=== PATIENT | male | born 1955 | race Hispanic/Latino ===

== ENCOUNTER 2021-06-13 14:37 | Inpatient (IN) | payer OTHER ==
[2021-06-13] MEDS ORDERED: FENTANYL CITR 100 MCG/2 ML ONE (16:02)
--- NOTE | 2021-06-13 16:12 | RAD REPORT ---
EXAM DESCRIPTION: CT - Head Brain Wo Cont - 06/13/2021 4:06 pm CLINICAL HISTORY: mental status change Headache, drowsiness COMPARISON: No comparisons TECHNIQUE: All CT scans are performed using dose optimization technique as appropriate and may inclu de automated exposure control or mA/KV adjustment according to patient size. FINDINGS: No intracranial hemorrhage, hydrocephalus or extra-axial fluid collection.Mild generalized brain atrophy is present with mild periventricular and deep white matter chronic microvascular ische hitesh changes.No areas of brain edema or evidence of midline shift. The paranasal sinuses and mastoids are clear. The calvarium is intact. IMPRESSION: No acute intracranial abnormality.
--- NOTE | 2021-06-13 16:25 | RAD REPORT ---
EXAM DESCRIPTION: RAD - Chest Single View - 06/13/2021 4:17 pm CLINICAL HISTORY: abd distention Chest pain. COMPARISON: No comparisons FINDINGS: Portable technique limits examination quality. The lungs are grossly clear. The heart is normal in size. No displaced fractures. IMPRESSION: No acute intrathoracic process suspected.
[2021-06-13 17:10] LABS: Urine Blood 2+ (Negative); Urine Glucose Negative (Negative); Urine Protein Negative (Negative); Urine Specific Gravity >=1.030 (1.005-1.030)
[2021-06-13 17:23] LABS: Absolute Lymphocytes (CBC) 0.9 K/uL (0.7-4.9); Basophils % 0.9 % (0-1.3); Hematocrit 36.9 % (39.6-49.0); Lymphocytes % 16.2 % (15.3-44.8)
[2021-06-13 17:24] LABS: Protime INR 1.04
[2021-06-13 17:28] LABS: Urine Bacteria <20 /HPF (NONE SEEN); Urine RBC <5 /HPF (NONE SEEN)
[2021-06-13 17:44] LABS: ALT/SGPT 37 U/L (12-78); AST/SGOT 51 U/L (15-37); Albumin 2.9 g/dL (3.4-5.0); Alkaline Phosphatase 149 U/L (45-117); BUN Blood Urea Nitrogen 31 mg/dL (7-18); Bicarbonate 17 mmol/L (21-32); Bilirubin Direct 0.8 mg/dL (0-0.2); Bilirubin Total 1.8 mg/dL (0.2-1.0); Glucose Level 174 mg/dL (74-106); Magnesium 2.5 mg/dL (1.8-2.4); NT PRO-BNP 833 pg/mL (<125); Protein, Total 8.1 g/dL (6.4-8.2); Sodium Level 139 mmol/L (136-145); Troponin (Emerg Dept Use Only) < 0.02 ng/mL (0.0-0.045)
[2021-06-13 17:54] LABS: Potassium 5.7 mmol/L (3.5-5.1)
--- NOTE | 2021-06-13 18:36 | ER ---
Nurse's Notes [facility] Name: Keith Holley Age: 66 yrs Sex: Male : 1955 Arrival Date: 06/13/2021 Time: 14:41 Bed 8 Private MD: Diagnosis: Encephalopathy, unspecified;Hyperkalemia;Unspecified kidney failure Presentation: 06/13 14:59 Chief complaint: Patient states: i have pain. in my stomach. i had a paracentesis on tw2 the sister - we had labs on and showed high Ammonia level. now he is alertered. he was not able to communicated or make sentences. Coronavirus screen: At this time, the client does not indicate any symptoms associated with coronavirus-19. Ebola Screen: Patient denies travel to an Ebola-affected area in the 21 days before illness onset. Initial Sepsis Screen: Does the patient meet any 2 criteria? HR > 90 bpm. No. Patient's initial sepsis screen is negative. Does the patient have a suspected source of infection? No. Patient's initial sepsis screen is negative. Risk Assessment: Do you want to hurt yourself or someone else? Patient reports no desire to harm self or others. Onset of symptoms was June 13, 2021. 14:59 Method Of Arrival: Wheelchair tw2 14:59 Acuity: RODRICK 3 tw2 Triage Assessment: 15:04 General: Appears in no apparent distress. uncomfortable, Behavior is calm, cooperative. tw2 Pain: Complains of pain in abdomen. Neuro: Level of Consciousness is awake, alert, obeys commands. GI: Abdomen is distended, noted to have ascites. Historical: - Allergies: 15:02 No Known Allergies; tw2 - Home Meds: 15:05 omeprazole 40 mg Oral cpDR 1 cap once daily [Active]; propranolol 10 mg Oral tab 1 tab tw2 [Active]; spironolactone 50 mg Oral tab 1 tab once daily [Active]; spironolactone 25 mg Oral tab 1 tab once daily [Active]; Xifaxan 550 mg oral tab 1 tab once a day [Active]; lactulose 10 gram/15 mL Oral soln 15 mL twice a day [Active]; - PMHx: 15:02 Cirrhosis of liver; ascites; tumor in liver; Kidney disease; tw2 - PSHx: 15:03 left hip sx; tw2 - Immunization history:: Client reports receiving the 2nd dose of the Covid vaccine. - Social history:: Smoking status: Patient reports the use of cigarette tobacco products, smokes one-half pack cigarettes per day. Screenin:12 Abuse screen: Denies threats or abuse. Nutritional screening: No deficits noted. tw2 Tuberculosis screening: No symptoms or risk factors identified. Fall Risk Secondary diagnosis (15 points) impaired mobility, Ambulatory Aid- Crutches/Cane/Walker (15 pts). Assessment: 15:02 Reassessment: No changes from previously documented assessment. GI: Reports distention. jt3 Vital Signs: 14:59 BP 118 / 79; Pulse 100; Resp 18; Temp 97.4(TE); Pulse Ox 100% on R/A; Weight 64.86 kg tw2 (R); 19:50 Pulse 78; Resp 18; Pulse Ox 100% on R/A; lh3 ED Course: 14:41 Patient arrived in ED. ds1 15:02 Triage completed. tw2 15:02 Arm band placed on. tw2 15:08 Bed in low position. Call light in reach. Side rails up X 1. Adult w/ patient. tw2 15:09 Duglas Loza PA is PHCP. cp 15:10 Ricky Jenkins MD is Attending Physician. cp 15:33 Sharmaine Murphy, RN is Primary Nurse. vg1 15:40 Missed attempt(s): 22 gauge in left wrist. vg1 15:58 Missed attempt(s): 24 gauge in right antecubital area. vg1 16:24 Sae Puckett, GERTRUDE is Primary Nurse. jt3 16:47 Troponin (emerg Dept Use Only) Sent. jt3 16:47 PT-INR Sent. jt3 16:47 NT PRO-BNP Sent. jt3 16:47 Magnesium Sent. jt3 16:47 LFT's Sent. jt3 16:47 CBC with Diff Sent. jt3 16:47 Basic Metabolic Panel Sent. jt3 16:47 Lactate Sent. jt3 16:47 Procalcitonin Sent. jt3 16:47 AMMONIA Sent. jt3 16:47 Ptt, Activated Sent. jt3 16:48 ETOH Level Sent. jt3 16:48 Urine Microscopic Only Sent. jt3 16:48 Blood Culture Adult (2) Sent. jt3 16:49 COVID-19 (Coronavirus) Document "Date of Onset" if Symptomatic Sent. 5 18:34 Kashmir See DO is Hospitalizing Provider. cp 18:39 CT Abd/Pelvis - Without Contrast In Process Unspecified. EDMS 19:36 No provider procedures requiring assistance completed. lh3 19:38 CORONAVIRUS Sent. lh3 19:50 Door closed. Warm blanket given. Verbal reassurance given. lh3 19:50 Inserted saline lock: 24 gauge in left antecubital area, using aseptic technique. lh3 20:53 Patient admitted, IV remains in place. 3 Administered Medications: 16:46 Drug: fentaNYL (PF) 25 mcg Route: IVP; Site: left antecubital; jt3 19:35 Drug: Insulin Regular Human 5 units {Co-Signature: dc2 (Shoshana Singletary RN).} Route: lh3 IVP; Site: left antecubital; 19:35 Drug: Calcium Gluconate 1 grams Route: IVPB; Infused Over: 60 mins; Site: left 3 antecubital; 19:35 Drug: Lactulose 20 grams Volume: 30 ml; Route: PO; lh3 19:36 Drug: NS 0.9% 1000 ml Route: IV; Rate: 1000 ml/hr; Site: left antecubital; 3 19:36 Drug: D50W 25 ml Route: IVP; Site: left antecubital; 3 Outcome: 18:35 Decision to Hospitalize by Provider. cp 20:52 Admitted to Med/surg room 422. 3 20:52 Condition: good 20:52 Instructed on the need for admit. 22:09 Patient left the ED. 3 Signatures: Dispatcher [employer] EDNC Alycia Moulton Corey, PA PA cp Court Kennedy RN RN tw2 Sharmaine Murphy, RN RN vg1 Blanquita Connolly RN RN 3 Jose Hook, GERTRUDE RN ch5 Sae Puckett RN RN jt3 Shoshana Singletary RN dc2
--- NOTE | 2021-06-13 18:36 | EDPHYS ---
Physician Documentation [facility] Name: Keith Holley Age: 66 yrs Sex: Male : 1955 Arrival Date: 06/13/2021 Time: 14:41 Bed 8 Private MD: ED Physician Ricky Jenkins HPI: 06/13 15:30 This 66 yrs old Male presents to ER via Wheelchair with complaints of Altered cp Mental Status, Abdominal Pain. 15:30 The patient presents with decreased mental status. Onset: The symptoms/episode cp began/occurred gradually. 15:30 Possible causes: known liver failure. cp 15:30 Associated signs and symptoms: Pertinent positives: abdominal pain, Pertinent cp negatives: chest pain, diarrhea, fever. Current symptoms: In the emergency department the patient's symptoms have improved, mildly, is more alert. Patient's baseline: Neuro: alert and fully oriented, Motor: no deficits, Ambulation: walks without assistance, Speech: normal. Historical: - Allergies: 15:02 No Known Allergies; tw2 - Home Meds: 15:05 omeprazole 40 mg Oral cpDR 1 cap once daily [Active]; propranolol 10 mg Oral tab 1 tab tw2 [Active]; spironolactone 50 mg Oral tab 1 tab once daily [Active]; spironolactone 25 mg Oral tab 1 tab once daily [Active]; Xifaxan 550 mg oral tab 1 tab once a day [Active]; lactulose 10 gram/15 mL Oral soln 15 mL twice a day [Active]; - PMHx: 15:02 Cirrhosis of liver; ascites; tumor in liver; Kidney disease; tw2 - PSHx: 15:03 left hip sx; tw2 - Immunization history:: Client reports receiving the 2nd dose of the Covid vaccine. - Social history:: Smoking status: Patient reports the use of cigarette tobacco products, smokes one-half pack cigarettes per day. ROS: 15:35 Constitutional: Negative for body aches, chills, fever, poor PO intake. cp 15:35 Eyes: Negative for injury, pain, redness, and discharge. cp 15:35 Cardiovascular: Negative for chest pain. 15:35 Respiratory: Negative for cough, shortness of breath, wheezing. 15:35 Abdomen/GI: Positive for abdominal pain, Negative for vomiting, diarrhea, constipation. 15:35 Neuro: Positive for altered mental status, Negative for headache, weakness. 15:35 All other systems are negative. Exam: 15:40 Constitutional: The patient appears in no acute distress, alert, awake, cp non-diaphoretic, non-toxic, well developed, well nourished. 15:40 Head/Face: Normocephalic, atraumatic. cp 15:40 Eyes: Periorbital structures: appear normal, Pupils: equal, round, and reactive to light and accomodation, Extraocular movements: intact throughout, Conjunctiva: normal, no exudate, no injection, Sclera: no appreciated abnormality, Lids and lashes: appear normal, bilaterally. 15:40 ENT: External ear(s): are unremarkable, Nose: is normal, Mouth: Lips: moist, Oral mucosa: moist, Posterior pharynx: Airway: no evidence of obstruction, patent. 15:40 Neck: ROM/movement: is normal, is supple, without pain, no range of motions limitations. 15:40 Chest/axilla: Inspection: normal. 15:40 Cardiovascular: Rate: tachycardic, Rhythm: regular, Edema: is not appreciated, JVD: is not appreciated. 15:40 Respiratory: the patient does not display signs of respiratory distress, Respirations: normal, no use of accessory muscles, no retractions, labored breathing, is not present, Breath sounds: are clear throughout, no decreased breath sounds, no stridor, no wheezing. 15:40 Abdomen/GI: Inspection: distension, that is moderate, in the abdomen diffusely, Bowel sounds: active, all quadrants, Palpation: soft, in all quadrants, mild abdominal tenderness, in all quadrants, rebound tenderness, is not appreciated, involuntary guarding, is not appreciated. 15:40 Back: pain, is absent, ROM is normal. 15:40 Skin: cellulitis, is not appreciated, no rash present. 15:40 Neuro: Orientation: to person, place, situation, Mentation: able to follow commands, slow to respond, Motor: moves all fours, strength is normal, Sensation: is normal. 15:41 ECG was reviewed by the Attending Physician. cp Vital Signs: 14:59 BP 118 / 79; Pulse 100; Resp 18; Temp 97.4(TE); Pulse Ox 100% on R/A; Weight 64.86 kg tw2 (R); 19:50 Pulse 78; Resp 18; Pulse Ox 100% on R/A; lh3 MDM: 15:10 Patient medically screened. cp 18:15 Data reviewed: vital signs, nurses notes, lab test result(s), EKG, radiologic studies, cp CT scan, plain films. 18:15 Test interpretation: by ED physician or midlevel provider: ECG. Counseling: I had a cp detailed discussion with the patient and/or guardian regarding: the historical points, exam findings, and any diagnostic results supporting the discharge/admit diagnosis, lab results, the need for further work-up and treatment in the hospital. Physician consultation: Hakeem Wynn was contacted at 18:15, regarding admission, to the telemetry unit. patient's condition, and will see patient in ED, shortly. 06/13 15:24 Order name: Basic Metabolic Panel cp 06/13 15:24 Order name: CBC with Diff 06/13 15:24 Order name: LFT's cp 06/13 15:24 Order name: Magnesium cp 06/13 15:24 Order name: NT PRO-BNP cp 06/13 15:24 Order name: PT-INR cp 06/13 15:24 Order name: Troponin (emerg Dept Use Only) cp 06/13 15:24 Order name: Lactate cp 06/13 15:24 Order name: Procalcitonin cp 06/13 15:24 Order name: AMMONIA cp 06/13 15:24 Order name: ETOH Level cp 06/13 15:24 Order name: Ptt, Activated cp 06/13 15:24 Order name: Urine Microscopic Only 06/13 15:24 Order name: Blood Culture Adult (2) 06/13 15:26 Order name: COVID-19 (Coronavirus) Document "Date of Onset" if Symptomatic 06/13 17:11 Order name: Urine Dipstick-Ancillary; Complete Time: 17:48 EDMS 06/13 17:48 Interpretation: Normal except: UBLD 2+. cp 06/13 17:13 Order name: CORONAVIRUS EDIN 06/13 17:24 Order name: CBC with Automated Diff; Complete Time: 17:48 EDMS 06/13 17:49 Interpretation: Normal except: RBC 3.70; HGB 12.5; HCT 36.9; PLT 118; RDW 17.1. cp 06/13 17:26 Order name: Protime (+INR); Complete Time: 17:48 EDMS 06/13 17:26 Order name: PTT, Activated Partial Thromb; Complete Time: 17:48 EDMS 06/13 17:29 Order name: Urine Microscopic Only; Complete Time: 17:48 EDMS 06/13 17:54 Order name: Basic Metabolic Panel; Complete Time: 18:05 EDMS 06/13 18:06 Interpretation: Normal except: K 5.7; CL 112; CO2 17; GLUC 174; BUN 31; CRE 2.55; GFR cp 25. 06/13 17:54 Order name: Liver (Hepatic) Function; Complete Time: 18:05 EDMS 06/13 18:06 Interpretation: Normal except: AST 51; ALK 149; BILIT 1.8; BILID 0.8; ALB 2.9; GLOB cp 5.2; A/G 0.6. 06/13 17:54 Order name: Troponin (Emerg Dept Use Only); Complete Time: 18:05 EDMS 06/13 17:54 Order name: NT PRO-BNP; Complete Time: 18:05 EDMS 06/13 17:54 Order name: Magnesium; Complete Time: 18:05 EDMS 06/13 18:06 Interpretation: Abnormal: MG 2.5. 06/13 18:06 Order name: Lactate; Complete Time: 18:07 EDMS 06/13 18:06 Order name: SARS-COV-2 RT PCR; Complete Time: 18:07 EDMS 06/13 18:06 Order name: Ammonia; Complete Time: 18:07 EDMS 06/13 18:07 Interpretation: Abnormal: STACIA 78. cp 06/13 18:07 Order name: Alcohol Serum/Plasma; Complete Time: 18:08 EDMS 06/13 15:24 Order name: XRAY Chest (1 view) cp 06/13 15:24 Order name: EKG; Complete Time: 16:45 06/13 15:24 Order name: Cardiac monitoring; Complete Time: 15:56 06/13 15:24 Order name: EKG - Nurse/Tech; Complete Time: 15:56 06/13 15:24 Order name: IV Saline Lock; Complete Time: 16:47 06/13 15:24 Order name: Labs collected and sent; Complete Time: 16:47 06/13 15:24 Order name: O2 Per Protocol; Complete Time: 15:56 cp 06/13 15:24 Order name: O2 Sat Monitoring; Complete Time: 15:56 cp 06/13 15:24 Order name: CT Head Brain wo Cont cp 06/13 16:13 Order name: CT; Complete Time: 16:41 EDMS 06/13 16:42 Interpretation: Report reviewed. cp 06/13 16:25 Order name: RAD; Complete Time: 16:41 EDMS 06/13 16:42 Interpretation: Report reviewed. cp 06/13 18:10 Order name: Procalcitonin; Complete Time: 18:11 EDMS 06/13 18:28 Order name: CT Abd/Pelvis - Without Contrast; Complete Time: 21:31 cp EC:41 Rate is 94 beats/min. Rhythm is regular. IL interval is normal. QRS interval is normal. cp QT interval is normal. T waves are Inverted in leads aVL, aVR. Interpreted by me. Reviewed by me. Administered Medications: 16:46 Drug: fentaNYL (PF) 25 mcg Route: IVP; Site: left antecubital; jt3 19:35 Drug: Insulin Regular Human 5 units {Co-Signature: dc2 (Shoshana Singletary RN).} Route: lh3 IVP; Site: left antecubital; 19:35 Drug: Calcium Gluconate 1 grams Route: IVPB; Infused Over: 60 mins; Site: left lh3 antecubital; 19:35 Drug: Lactulose 20 grams Volume: 30 ml; Route: PO; lh3 19:36 Drug: NS 0.9% 1000 ml Route: IV; Rate: 1000 ml/hr; Site: left antecubital; 3 19:36 Drug: D50W 25 ml Route: IVP; Site: left antecubital; 3 Disposition Summary: 06/13/21 18:35 Hospitalization Ordered Hospitalization Status: Inpatient Admission cp Provider: Kashmir See cp Location: Telemetry/MedSurg (Inpatient) cp Condition: Stable cp Problem: an ongoing problem cp Symptoms: are unchanged cp Bed/Room Type: Standard cp Room Assignment: 422(06/13/21 19:36) eb1 Diagnosis - Encephalopathy, unspecified cp - Hyperkalemia cp - Unspecified kidney failure cp Forms: - Medication Reconciliation Form cp - SBAR form cp Addendum: 06/17/2021 13:55 Co-signature as Attending Physician, Ricyk Jenkins MD I agree with the assessment and r n plan of care. Attestation: The patient's history, exam findings, diagnostics, and a summary of any interventions or procedures was reviewed in detail with Duglas VELASQUEZ. Signatures: Dispatcher [employer] EDRicky De MD MD rn Ambreena, Hakeem, OPTOELECTRONIC TECHNICIAN-C OPTOELECTRONIC TECHNICIAN-Cla1 Duglas Loza PA PA cp Court Kennedy RN RN tw2 Ritu Valles RN RN eb1 Blanquita Connolly, RN RN lh3 Sae Puckett RN RN jt3 Shoshana Singletary RN dc2 Corrections: (The following items were deleted from the chart) 06/13 19:36 18:35 ilya eb1
--- NOTE | 2021-06-13 18:55 | RAD REPORT ---
EXAM DESCRIPTION: CT - Abdomen Pelvis Wo Contrast - 06/13/2021 6:39 pm CLINICAL HISTORY: Abdominal pain. ABD PAIN COMPARISON: Abdomen W Contrast dated 04/30/2018 TECHNIQUE: CT imaging of the abdomen and pelvis was performed without contrast. Solid organ, bowel a nd vascular assessment is limited due to lack of IV and oral contrast. All CT scans are performed using dose optimization technique as appropriate and may include automated exposure control or mA/KV adjustment according to patient size. FINDINGS: The lower lung sims are clear. Advanced liver cirrhosis pattern is seen. Full assessment of the liver parenchyma is limited but ther e is likely a mass present in the anterior superior right lobe liver measures up to 4.5 cm. This is i ncompletely assessed on limited noncontrast study. The spleen, pancreas, adrenal glands and kidneys show no acute process. Cholelithiasis. Punctate left renal calculus without hydronephrosis. Mild to moderate volume ascites. No bowel obstruction, abscess or free air. The appendix is not ident ified as a discrete structure, however, no secondary findings of appendicitis are identified. Severe arthritic changes left hip. IMPRESSION: Advanced liver cirrhosis is evident. Suspicion for a mass lesion measuring about 4.5 cm is present anterior superior right lobe, very concerning for HCC. Mild to moderate volume ascites. Cholelithiasis. Punctate left renal calculus without hydronephrosis. A limited non-contrast examination was performed as detailed.
--- NOTE | 2021-06-13 19:45 | P.HP ---
Certification for Inpatient Patient admitted to: Inpatient With expected LOS: >2 Midnights Patient will require the following post-hospital care: None Practitioner: I am a practitioner with admitting privileges, knowledge of patient current condition, hospital course, and medical plan of care. Services: Services provided to patient in accordance with Admission requirements found in Title 42 Section 412.3 of the Code of Federal Regulations Patient History Date of Service: 06/13/21 Primary Care Provider: QUIRINO Coffman Dr. Reason for admission: Acute renal failure, hyperkalemia History of Present Illness: 66-year-old male with history of cirrhosis of liver secondary to hepatitis C, liver cancer, chronic kidney disease presents to the emergency department for altered mental status. Patient's family reports has been more confused over the course of last few days, patient had a paracentesis approximately 2 weeks ago where 7 L was taken off. Patient was evaluated in the emergency department labs were significant for hemoglobin 12.5 medical 36.9 platelets 118 INR 1.04 potassium 5.7 chloride 112 CO2 17 BUN 31 creatinine 2.55 GFR 25 glucose 174 lactic acid 3.0 magnesium 2.5T bili 1.8D bili 0.8 AST 51 ALT 37 alk phos 149 ammonia 78 BNP 833 procalcitonin 0.05. Patient reports that he has been compliant with his twice daily dose of lactulose and Xifaxan, patient does take spironolactone which is likely contributing to the hyperkalemia. Patient with some underlying chronic kidney disease but his baseline creatinine and GFR are unknown and not available for review. ED provider wishes to admit for acute renal failure, hyperkalemia, hepatic encephalopathy. Allergies No Known Allergies Allergy (Unverified 06/13/21 15:25) - Past Medical/Surgical History -: Cirrhosis/hep C/liver cancer -: CKD -: Left hip surgery Psychosocial/ Personal History: Patient lives alone but currently has family staying with him to help care for him - Family History Mother -: Diabetes - Social History Smoking Status: Current every day smoker Counseled patient to stop smoking for: less than 10 minutes Smoking therapy provided: No (Patient declined) Alcohol use: No CD- Drugs: No Caffeine use: Yes Place of Residence: Home Review of Systems 10-point ROS is otherwise unremarkable Neurological: Confusion, As per HPI Physical Examination - Physical Exam General: Alert, In no apparent distress, Oriented x3 HEENT: Atraumatic, PERRLA, Mucous membr. moist/pink, EOMI, Sclerae nonicteric Neck: Supple, 2+ carotid pulse no bruit, No LAD, Without JVD or thyroid abnormal ity Respiratory: Clear to auscultation bilaterally, Normal air movement Cardiovascular: Regular rate/rhythm, Normal S1 S2 Capillary refill: <2 Seconds Gastrointestinal: Normal bowel sounds, No tenderness, No masses, No rebound, No guarding, Ascites Musculoskeletal: No tenderness Integumentary: No rashes Neurological: Normal speech, Normal strength at 5/5 x4 extr, Normal tone, Normal affect - Studies Laboratory Data (last 24 hrs) 06/13/21 16:40: PT 12.0, INR 1.04, APTT 28.3 06/13/21 16:40: WBC 5.30, Hgb 12.5 L, Hct 36.9 L, Plt Count 118 L 06/13/21 16:40: Sodium 139, Potassium 5.7 H*, BUN 31 H, Creatinine 2.55 H, Glucose 174 H, Magnesium 2.5 H, Total Bilirubin 1.8 H, AST 51 H, ALT 37, Alkaline Phosphatase 149 H Assessment and Plan - Plan Assessment: Acute renal failure with hyperkalemia Hepatic encephalopathy with elevated ammonia level Cirrhosis 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 Nephrology consulted will hold spironolactone given hyperkalemia. Likely hepatorenal syndrome. Renal ultrasound ordered. Hepatic encephalopathy with elevated ammonia level: Continue lactulose, Xifaxan. Will need to hold spironolactone, patient appears dry will continue with IV hydration as well. Consult GI as necessary. Patient with paracentesis approximately 2 weeks ago, with some ascites but no tense ascites noted. 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 DVT PPX: Heparin Code status: Full Discharge Plan: Home Plan to discharge in: 72 Hours - Advance Directives Does patient have a Living Will: No Does patient have a Durable POA for Healthcare: No - Code Status/Comfort Care Code Status Assessed: Yes (Full code) Critical Care: No Time Spent Managing Pts Care (In Minutes): 55
[2021-06-13] MEDS ORDERED: INSULIN -REGULAR HUMAN 50 UNIT/0.5 ML ML ONE (19:48)
[2021-06-13] MEDS ORDERED: D50W 50 ML IV ONE (19:49)
[2021-06-13] MEDS ORDERED: CALCIUM GLUCONATE 1 GM IVPB 1 GM/50 ML BAG IV ONE (19:49)
[2021-06-13] MEDS ORDERED: NA CHLORIDE 0.9% 1,000 ML ONE ×2 (19:49→21:57)
[2021-06-13] MEDS ORDERED: LACTULOSE 20 GM/30 ML UCUP ONE (19:49)
[2021-06-13] MEDS ORDERED: ONDANSETRON 4 MG/2 ML VIAL IV PRN (21:07)
[2021-06-13] MEDS ORDERED: SODIUM CHLORIDE 0.9% 10ML INJ IV PRN (21:07)
[2021-06-13] MEDS ORDERED: Rifaximin 550 MG Tab PO SCH (21:07)
[2021-06-13] MEDS: HEPARIN 5000 UNIT/ML 1 ML VIAL SQ SCH (21:43)
[2021-06-13] MEDS: PROPRANOLOL HCL 10 MG TAB PO SCH (21:50)
[2021-06-13] MEDS: LACTULOSE 20 GM/30 ML UCUP PO SCH (21:50)
[2021-06-13] MEDS: NA CHLORIDE 0.9% 1,000 ML IV SCH (21:52)
[2021-06-13] MEDS ORDERED: TRAMADOL HCL 50 MG TAB PO PRN (22:44)
[2021-06-14 06:09] LABS: Absolute Lymphocytes (CBC) 0.8 K/uL (0.7-4.9); Basophils % 0.7 % (0-1.3); Hematocrit 30.3 % (39.6-49.0); Lymphocytes % 17.5 % (15.3-44.8); MPV 8.5 fL (7.6-11.3); RBC Red Blood Cell Count 3.05 M/uL (4.33-5.43)
--- NOTE | 2021-06-14 06:09 | P.PN ---
Subjective Date of Service: 06/14/21 Primary Care Provider: Dr. Xavier, GI Dr. Velazquez Chief Complaint: Acute renal failure, hyperkalemia Subjective: Other (Patient stable at this time. Patient alert) Physical Examination - Vital Signs Temperature: 97.4 F Blood Pressure: 134/75 Pulse: 64 Respirations: 18 - Studies Laboratory Data (last 24 hrs) 06/13/21 16:40: PT 12.0, INR 1.04, APTT 28.3 06/13/21 16:40: WBC 5.30, Hgb 12.5 L, Hct 36.9 L, Plt Count 118 L 06/13/21 16:40: Sodium 139, Potassium 5.7 H*, BUN 31 H, Creatinine 2.55 H, Glucose 174 H, Magnesium 2.5 H, Total Bilirubin 1.8 H, AST 51 H, ALT 37, Alkaline Phosphatase 149 H Assessment & Plan Discharge Plan: Home Plan to discharge in: Greater than 2 days Physician Review Additional Text: COVID: Negative CXR: COMPARISON: No comparisons FINDINGS: Portable technique limits examination quality. The lungs are grossly clear. The heart is normal in size. No displaced fractures. IMPRESSION: No acute intrathoracic process suspected. CT Head: COMPARISON: No comparisons TECHNIQUE: All CT scans are performed using dose optimization technique as appropriate and may include automated exposure control or mA/KV adjustment according to patient size. FINDINGS: No intracranial hemorrhage, hydrocephalus or extra-axial fluid collection.Mild generalized brain atrophy is present with mild periventricular and deep white matter chronic microvascular ischemic changes.No areas of brain edema or evidence of midline shift. The paranasal sinuses and mastoids are clear. The calvarium is intact. IMPRESSION: No acute intracranial abnormality. CT Ab: COMPARISON: Abdomen W Contrast dated 04/30/2018 TECHNIQUE: CT imaging of the abdomen and pelvis was performed without contrast. Solid organ, bowel and vascular assessment is limited due to lack of IV and oral contrast. All CT scans are performed using dose optimization technique as appropriate and may include automated exposure control or mA/KV adjustment according to patient size. FINDINGS: The lower lung sims are clear. Advanced liver cirrhosis pattern is seen. Full assessment of the liver parenchyma is limited but there is likely a mass present in the anterior superior right lobe liver measures up to 4.5 cm. This is incompletely assessed on limited noncontrast study. The spleen, pancreas, adrenal glands and kidneys show no acute process. Cholelithiasis. Punctate left renal calculus without hydronephrosis. Mild to moderate volume ascites. No bowel obstruction, abscess or free air. The appendix is not identified as a discrete structure, however, no secondary findings of appendicitis are identified. Severe arthritic changes left hip. IMPRESSION: Advanced liver cirrhosis is evident. Suspicion for a mass lesion measuring about 4.5 cm is present anterior superior right lobe, very concerning for HCC. Mild to moderate volume ascites. Cholelithiasis. Punctate left renal calculus without hydronephrosis. A limited non-contrast examination was performed as detailed. Renal US: COMPARISON: Abdomen Pelvis Wo Contrast dated 06/13/2021 FINDINGS: The right kidney measures 9.5 x 4.4 x 4.8 cm. The left kidney measures 8.9 x 4.9 x 4.6 cm. Renal cortical thickness and echogenicity are normal. No hydronephrosis or suspicious renal mass. No bladder wall thickening or mass. No intraluminal stone or mass. Patient's extensive ascites and liver parenchymal disease were detailed on the June 13 CT study. IMPRESSION: No hydronephrosis or suspicious renal mass. No significant finding. Physical Exam: General: Alert, cooperative. No acute distress. HEENT: Neck supple Respiratory: Clear to auscultation bilaterally, Normal air movement. Currently on room air Cardiovascular: Regular rate/rhythm, Normal S1 S2 Capillary refill: <2 Seconds Gastrointestinal: Normal bowel sounds, No tenderness, No masses, No rebound, No guarding, mild ascites. No significant edema to the lower extremities Musculoskeletal: No tenderness Integumentary: No rashes Neurological: Normal speech, Normal strength at 5/5 x4 extr, Normal tone, Normal affect Impression: Acute on chronic renal failure stage IV with hyperkalemia Hepatic encephalopathy with advance liver cirrhosis related to hepatitis C complicated with liver cancer with noted mass measuring 4.5 cm to the anterior superior right lobe suspect hepatocellular carcinoma Anemia of chronic disease GERD Plan: Acute on chronic renal failure stage IV with hyperkalemia: Patient given potassium cocktail in the ER. Continue IV fluids. Aldactone held due to hyperkalemia. Renal ultrasound obtained. Will consult nephrology. Will discuss with nephrology for further recommendation. Physical therapy to ambulate. Will monitor closely. Continue with cirrhosis medication. Hepatic encephalopathy with advance liver cirrhosis related to hepatitis C complicated with liver cancer with noted mass measuring 4.5 cm to the anterior superior right lobe suspect hepatocellular carcinoma: Continue lactulose. Hold Aldactone at this time due to hyperkalemia. Sinew Inderal. Continue IV fluids. Will discuss further with his GI specialist to get more information about his liver disease, liver cancer. We will also discuss with nephrology. Anemia of chronic disease: We will monitor closely. Will check iron and B12 studies. GERD: Continue with Protonix DVT PPX: Heparin Code status: Full Discharge Plan: Home Time Spent Managing Pts Care (In Minutes): 55
[2021-06-14 06:38] LABS: Albumin 2.4 g/dL (3.4-5.0); Bilirubin Total 1.4 mg/dL (0.2-1.0); Magnesium 2.5 mg/dL (1.8-2.4); Protein, Total 6.6 g/dL (6.4-8.2); Thyroid Stimulating Hormone 3.4 uIU/mL (0.360-3.740)
[2021-06-14 06:45] LABS: Potassium 5.8 mmol/L (3.5-5.1)
--- NOTE | 2021-06-14 07:23 | RAD REPORT ---
EXAM DESCRIPTION: US - Renal Ultrasound-Complete - 06/14/2021 1:10 am CLINICAL HISTORY: ARF/CKD COMPARISON: Abdomen Pelvis Wo Contrast dated 06/13/2021 FINDINGS: The right kidney measures 9.5 x 4.4 x 4.8 cm. The left kidney measures 8.9 x 4.9 x 4.6 cm . Renal cortical thickness and echogenicity are normal. No hydronephrosis or suspicious renal mass. No bladder wall thickening or mass. No intraluminal stone or mass. Patient's extensive ascites and liver parenchymal disease were detailed on the June 13 CT study. IMPRESSION: No hydronephrosis or suspicious renal mass. No significant finding.
[2021-06-14] MEDS: PROPRANOLOL HCL 10 MG TAB PO SCH ×2 (09:42→20:05)
[2021-06-14] MEDS: PANTOPRAZOLE 40 MG INJ IVP SCH (09:42)
[2021-06-14] MEDS: LACTULOSE 20 GM/30 ML UCUP PO SCH ×3 (09:42→20:06)
[2021-06-14] MEDS: HEPARIN 5000 UNIT/ML 1 ML VIAL SQ SCH ×2 (09:42→20:05)
--- NOTE | 2021-06-14 11:24 | P.CNS ---
Date of Consult: 06/14/21 Requesting Physician: Kashmir See Primary Care Provider: QUIRINO Coffman Dr. Chief Complaint: Acute renal failure, hyperkalemia History of Present Illness: 66-year-old male with history of cirrhosis of liver secondary to hepatitis C, liver cancer, chronic kidney disease presents to the emergency department for altered mental status. Patient's family reports has been more confused over the course of last few days, patient had a paracentesis approximately 2 weeks ago where 7 L was taken off. Patient was evaluated in the emergency department labs were significant for hemoglobin 12.5 medical 36.9 platelets 118 INR 1.04 potassium 5.7 chloride 112 CO2 17 BUN 31 creatinine 2.55 GFR 25 glucose 174 lactic acid 3.0 magnesium 2.5T bili 1.8D bili 0.8 AST 51 ALT 37 alk phos 149 ammonia 78 BNP 833 procalcitonin 0.05. Patient reports that he has been compliant with his twice daily dose of lactulose and Xifaxan, patient does take spironolactone which is likely contributing to the hyperkalemia. Patient with some underlying chronic kidney disease but his baseline creatinine and GFR are unknown and not available for review. ED provider wishes to admit for acute renal failure, hyperkalemia, hepatic encephalopathy. Good urine output. Diffuese weakness. 15:30 This 66 yrs old Male presents to ER via Wheelchair with complaints of Altered cp Mental Status, Abdominal Pain. 15:30 The patient presents with decreased mental status. Onset: The symptoms/episode cp began/occurred gradually. Allergies No Known Allergies Allergy (Unverified 06/13/21 15:25) Home medications list reviewed: Yes Home Medications: Lactulose [Cephulac*] 15 ml PO BID 06/14/21 Omeprazole [Prilosec] 1 tab PO DAILY 06/14/21 Propranolol [Inderal*] 1 tab PO DAILY 06/14/21 Rifaximin [Xifaxan] 1 tab PO DAILY 06/14/21 Spironolactone 1 tab PO DAILY 06/14/21 - Past Medical/Surgical History Diabetic: Yes -: Cirrhosis/hep C/liver cancer -: CKD -: Left hip surgery Psychosocial/ Personal History: Patient lives alone but currently has family staying with him to help care for him - Family History Mother Medical History: Diabetes - Social History Smoking Status: Current every day smoker Alcohol use: No CD- Drugs: No Caffeine use: Yes Place of Residence: Home Review of Systems 10-point ROS is otherwise unremarkable General: Weakness Physical Examination Temp Pulse Resp BP Pulse Ox 97.7 F 75 16 124/74 100 06/14/21 08:00 06/14/21 09:42 06/14/21 08:00 06/14/21 09:42 06/14/21 08:00 General: Oriented x3, Cooperative HEENT: Atraumatic Neck: Supple Respiratory: Clear to auscultation bilaterally Cardiovascular: Regular rate/rhythm, Edema Gastrointestinal: Hypoactive, Distended Musculoskeletal: No clubbing, No contractures Integumentary: No rashes, No cyanosis Neurological: Normal speech Laboratory Data (last 24 hrs) 06/13/21 16:40: PT 12.0, INR 1.04, APTT 28.3 06/13/21 16:40: WBC 5.30, Hgb 12.5 L, Hct 36.9 L, Plt Count 118 L 06/13/21 16:40: Sodium 139, Potassium 5.7 H*, BUN 31 H, Creatinine 2.55 H, Glucose 174 H, Magnesium 2.5 H, Total Bilirubin 1.8 H, AST 51 H, ALT 37, Alkaline Phosphatase 149 H Imagings Data: EXAM DESCRIPTION: US - Renal Ultrasound-Complete - 06/14/2021 1:10 am CLINICAL HISTORY: ARF/CKD COMPARISON: Abdomen Pelvis Wo Contrast dated 06/13/2021 FINDINGS: The right kidney measures 9.5 x 4.4 x 4.8 cm. The left kidney measures 8.9 x 4.9 x 4.6 cm. Renal cortical thickness and echogenicity are normal. No hydronephrosis or suspicious renal mass. No bladder wall thickening or mass. No intraluminal stone or mass. Patient's extensive ascites and liver parenchymal disease were detailed on the June 13 CT study. IMPRESSION: No hydronephrosis or suspicious renal mass. No significant finding. EXAM DESCRIPTION: CT - Abdomen Pelvis Wo Contrast - 06/13/2021 6:39 pm CLINICAL HISTORY: Abdominal pain. ABD PAIN COMPARISON: Abdomen W Contrast dated 04/30/2018 TECHNIQUE: CT imaging of the abdomen and pelvis was performed without contrast. Solid organ, bowel and vascular assessment is limited due to lack of IV and oral contrast. All CT scans are performed using dose optimization technique as appropriate and may include automated exposure control or mA/KV adjustment according to patient size. FINDINGS: The lower lung sims are clear. Advanced liver cirrhosis pattern is seen. Full assessment of the liver parenchyma is limited but there is likely a mass present in the anterior superior right lobe liver measures up to 4.5 cm. This is incompletely assessed on limited noncontrast study. The spleen, pancreas, adrenal glands and kidneys show no acute process. Cholelithiasis. Punctate left renal calculus without hydronephrosis. Mild to moderate volume ascites. No bowel obstruction, abscess or free air. The appendix is not identified as a discrete structure, however, no secondary findings of appendicitis are identified. Severe arthritic changes left hip. IMPRESSION: Advanced liver cirrhosis is evident. Suspicion for a mass lesion me asuring about 4.5 cm is present anterior superior right lobe, very concerning for HCC. Mild to moderate volume ascites. Cholelithiasis. Punctate left renal calculus without hydronephrosis. A limited non-contrast examination was performed as detailed. EXAM DESCRIPTION: RAD - Chest Single View - 06/13/2021 4:17 pm CLINICAL HISTORY: abd distention Chest pain. COMPARISON: No comparisons FINDINGS: Portable technique limits examination quality. The lungs are grossly clear. The heart is normal in size. No displaced fractures. IMPRESSION: No acute intrathoracic process suspected. Conclusions/Impression: TREVOR sp large volume paracentesis CKD IV -No NSAIDs -IV Albumin prn -Gentle IVF -Check urine lytes in the am Hyperkalemia -Hold spironolactone -Kayexalte 15g X1 dose. -Low potassium diet Acidosis -Consider oral bicarb prn Hyperglycemia -Check A1C Moderate malnutrition -Encourage nutrition Anemia in chronic illness -Monitor H&H Liver cirrhosis with ascites Hepatitis C Hepatocellular carcinoma -Monitor LFTs Hepatic encephalopathy -Continue Lactulose Thank you kindly for the consultation.
[2021-06-14] MEDS: NA CHLORIDE 0.9% 1,000 ML IV SCH ×2 (14:32→23:32)
[2021-06-14] MEDS ORDERED: SOD POLYSTYREN SUL 15 GM/60 ML UCUP PO ONE (20:41)
[2021-06-15 05:19] LABS: Absolute Lymphocytes (CBC) 0.9 K/uL (0.7-4.9); Basophils % 0.6 % (0-1.3); Hematocrit 32.5 % (39.6-49.0); Lymphocytes % 19.3 % (15.3-44.8); MPV 9.1 fL (7.6-11.3); RBC Red Blood Cell Count 3.23 M/uL (4.33-5.43)
[2021-06-15 05:39] LABS: Albumin 2.5 g/dL (3.4-5.0); Bilirubin Total 1.2 mg/dL (0.2-1.0); Magnesium 2.5 mg/dL (1.8-2.4); Phosphorus 3.9 mg/dL (2.5-4.9); Potassium 5.1 mmol/L (3.5-5.1); Protein, Total 6.8 g/dL (6.4-8.2); Uric Acid 8.3 mg/dL (3.5-7.2)
--- NOTE | 2021-06-15 06:04 | P.PN ---
Subjective Date of Service: 06/15/21 Primary Care Provider: Dr. Xavier, GI Dr. Velazquez Chief Complaint: Acute renal failure, hyperkalemia Subjective: Other (Patient confused this morning. Ammonia level elevated.) Physical Examination - Vital Signs Temperature: 97 F Blood Pressure: 135/82 Pulse: 70 Respirations: 16 Pulse Ox (%): 99 - Studies Microbiology Data (last 24 hrs): 06/13/21 16:40 Blood - Blood Anaerobic Blood Culture - Final Assessment & Plan Discharge Plan: Other (Home versus skilled placement) Plan to discharge in: 48 Hours Physician Review Additional Text: COVID: Negative CXR: COMPARISON: No comparisons FINDINGS: Portable technique limits examination quality. The lungs are grossly clear. The heart is normal in size. No displaced fractures. IMPRESSION: No acute intrathoracic process suspected. CT Head: COMPARISON: No comparisons TECHNIQUE: All CT scans are performed using dose optimization technique as appropriate and may include automated exposure control or mA/KV adjustment according to patient size. FINDINGS: No intracranial hemorrhage, hydrocephalus or extra-axial fluid collection.Mild generalized brain atrophy is present with mild periventricular and deep white matter chronic microvascular ischemic changes.No areas of brain e suellen or evidence of midline shift. The paranasal sinuses and mastoids are clear. The calvarium is intact. IMPRESSION: No acute intracranial abnormality. CT Ab: COMPARISON: Abdomen W Contrast dated 04/30/2018 TECHNIQUE: CT imaging of the abdomen and pelvis was performed without contrast. Solid organ, bowel and vascular assessment is limited due to lack of IV and oral contrast. All CT scans are performed using dose optimization technique as appropriate and may include automated exposure control or mA/KV adjustment according to patient size. FINDINGS: The lower lung sims are clear. Advanced liver cirrhosis pattern is seen. Full assessment of the liver parenchyma is limited but there is likely a mass present in the anterior superior right lobe liver measures up to 4.5 cm. This is incompletely assessed on limited noncontrast study. The spleen, pancreas, adrenal glands and kidneys show no acute process. Cholelithiasis. Punctate left renal calculus without hydronephrosis. Mild to moderate volume ascites. No bowel obstruction, abscess or free air. The appendix is not identified as a discrete structure, however, no secondary findi ngs of appendicitis are identified. Severe arthritic changes left hip. IMPRESSION: Advanced liver cirrhosis is evident. Suspicion for a mass lesion measuring about 4.5 cm is present anterior superior right lobe, very concerning for HCC. Mild to moderate volume ascites. Cholelithiasis. Punctate left renal calculus without hydronephrosis. A limited non-contrast examination was performed as detailed. Renal US: COMPARISON: Abdomen Pelvis Wo Contrast dated 06/13/2021 FINDINGS: The right kidney measures 9.5 x 4.4 x 4.8 cm. The left kidney measures 8.9 x 4.9 x 4.6 cm. Renal cortical thickness and echogenicity are normal. No hydronephrosis or suspicious renal mass. No bladder wall thickening or mass. No intraluminal stone or mass. Patient's extensive ascites and liver parenchymal disease were detailed on the June 13 CT study. IMPRESSION: No hydronephrosis or suspicious renal mass. No significant finding. Physical Exam: General: Alert, cooperative. No acute distress. HEENT: Neck supple Respiratory: Clear to auscultation bilaterally, Normal air movement. Currently on room air Cardiovascular: Regular rate/rhythm, Normal S1 S2 Capillary refill: <2 Seconds Gastrointestinal: Normal bowel sounds, No tenderness, No masses, No rebound, No guarding, mild ascites. No significant edema to the lower extremities Musculoskeletal: No tenderness Integumentary: No rashes Neurological: Normal speech, Normal strength at 5/5 x4 extr, Normal tone, Normal affect Impression: Acute on chronic renal failure stage IV with hyperkalemia Hepatic encephalopathy with advance liver cirrhosis related to hepatitis C complicated with liver cancer with noted mass measuring 4.5 cm to the anterior superior right lobe related to. Hepatocellular carcinoma Anemia of chronic disease GERD Plan: Acute on chronic renal failure stage IV with hyperkalemia: Hyperkalemia resolved. Continue IV fluids. Aldactone remains on hold. Renal ultrasound shows no hydronephrosis or suspicious mass. Will discuss with nephrology. Case discussed with sister who takes care of him. Need to consider skilled placement for rehabilitation before going home. Physical therapy to assess ambulation. Encephalopathy needs to be improved with lactulose. Will have family bring in Xifaxan to restart. Hepatic encephalopathy with advance liver cirrhosis related to hepatitis C complicated with liver cancer with noted mass measuring 4.5 cm to the anterior superior right lobe related to hepatocellular carcinoma: Ammonia level elevated. Continue lactulose. Need to make sure patient has at least 3-4 bowel movements per day. Will have family bring in Xifaxan to restart. Continue Inderal. Patient is to see oncology as an outpatient to address cancer. Family member reports patient had prior embolization to address cancer in the past. Anemia of chronic disease: Overall stable. Monitor closely. GERD: Continue with Protonix DVT PPX: Heparin Code status: Full code Discharge Plan: Home versus skilled placement. Time Spent Managing Pts Care (In Minutes): 55
[2021-06-15] MEDS: HEPARIN 5000 UNIT/ML 1 ML VIAL SQ SCH ×2 (07:57→20:33)
[2021-06-15] MEDS: PANTOPRAZOLE 40 MG INJ IVP SCH (07:58)
[2021-06-15] MEDS: PROPRANOLOL HCL 10 MG TAB PO SCH ×2 (07:58→20:33)
[2021-06-15] MEDS: LACTULOSE 20 GM/30 ML UCUP PO SCH ×4 (07:59→20:36)
[2021-06-15] MEDS: NA CHLORIDE 0.9% 1,000 ML IV SCH (13:54)
[2021-06-15] MEDS ORDERED: SOD POLYSTYREN SUL 15 GM/60 ML UCUP PO ONE (18:13)
--- NOTE | 2021-06-15 18:15 | P.PN ---
Date of Service: 06/15/21 Vital Signs Temp Pulse Resp BP Pulse Ox 97.7 F 77 18 125/80 98 06/15/21 16:00 06/15/21 16:00 06/15/21 16:00 06/15/21 16:00 06/15/21 16:00 Medications Heparin Sodium (Porcine) (Heparin 5000 Unit/Ml 1 Ml Vial) 5,000 unit SQ Q12HR [facility] Last Admin: 06/15/21 07:57 Dose: 5,000 unit Documented by: Home Med (Home Med (Rifaximin 550 Mg Tab)) 1 ea PO BID TONY; Protocol Sodium Chloride (Ns 1000 Ml Ivbag) 1,000 mls @ 75 mls/hr IV .[id number] [facility] Last Admin: 06/15/21 13:54 Dose: 1,000 mls Documented by: Lactulose (Lactulose 20 Gm/30 Ml Ucup) 20 gm PO QID [facility] Ondansetron HCl (Ondansetron 4 Mg/2 Ml Vial) 4 mg IV Q6HP PRN PRN Reason: NAUSEA / VOMITING Pantoprazole Sodium (Pantoprazole 40 Mg Inj) 40 mg IVP DAILY [facility]; Protocol Last Admin: 06/15/21 07:58 Dose: 40 mg Documented by: Propranolol HCl (Propranolol Hcl 10 Mg Tab) 10 mg PO BID [facility] Last Admin: 06/15/21 07:58 Dose: 10 mg Documented by: Sodium Chloride (Flush Normal Saline 10 Ml) 10 ml IV BID [facility] Last Admin: 06/15/21 07:59 Dose: Not Given Documented by: Sodium Chloride (Sodium Chloride 0.9% 10ml Inj) 10 ml IV UD PRN PRN Reason: Diluant Tramadol HCl (Tramadol Hcl 50 Mg Tab) 50 mg PO TIDP PRN PRN Reason: Pain scale 2-4 (Mild) Microbiology Results 06/13/21 16:40 Blood - Blood Aerobic Blood Culture - Preliminary No growth in 24 hours. 06/13/21 16:40 Blood - Blood Anaerobic Blood Culture - Final Assessment/ Plan: Nephrology Progress Note Fatigue and weakness. Fair urine output. No chest pain or dyspnea No acute events overnight Vitals, medications blood work and imaging reviewed in the chart General: Oriented x3, Cooperative HEENT: Atraumatic Neck: Supple Respiratory: Clear to auscultation bilaterally Cardiovascular: Regular rate/rhythm, Edema Gastrointestinal: Hypoactive, Distended Musculoskeletal: No clubbing, No contractures Integumentary: No rashes, No cyanosis Neurological: Normal speech Laboratory Data (last 24 hrs) 06/13/21 16:40: PT 12.0, INR 1.04, APTT 28.3 06/13/21 16:40: WBC 5.30, Hgb 12.5 L, Hct 36.9 L, Plt Count 118 L 06/13/21 16:40: Sodium 139, Potassium 5.7 H*, BUN 31 H, Creatinine 2.55 H, Glucose 174 H, Magnesium 2.5 H, Total Bilirubin 1.8 H, AST 51 H, ALT 37, Alkaline Phosphatase 149 H Imagings Data: EXAM DESCRIPTION: US - Renal Ultrasound-Complete - 06/14/2021 1:10 am CLINICAL HISTORY: ARF/CKD COMPARISON: Abdomen Pelvis Wo Contrast dated 06/13/2021 FINDINGS: The right kidney measures 9.5 x 4.4 x 4.8 cm. The left kidney measures 8.9 x 4.9 x 4.6 cm. Renal cortical thickness and echogenicity are normal. No hydronephrosis or suspicious renal mass. No bladder wall thickening or mass. No intraluminal stone or mass. Patient's extensive ascites and liver parenchymal disease were detailed on the June 13 CT study. IMPRESSION: No hydronephrosis or suspicious renal mass. No significant finding. EXAM DESCRIPTION: CT - Abdomen Pelvis Wo Contrast - 06/13/2021 6:39 pm CLINICAL HISTORY: Abdominal pain. ABD PAIN COMPARISON: Abdomen W Contrast dated 04/30/2018 TECHNIQUE: CT imaging of the abdomen and pelvis was performed without contrast. Solid organ, bowel and vascular assessment is limited due to lack of IV and oral contrast. All CT scans are performed using dose optimization technique as appropriate and may include automated exposure control or mA/KV adjustment according to patient size. FINDINGS: The lower lung sims are clear. Advanced liver cirrhosis pattern is seen. Full assessment of the liver parenchyma is limited but there is likely a mass present in the anterior superior right lobe liver measures up to 4.5 cm. This is incompletely assessed on limited noncontrast study. The spleen, pancreas, adrenal glands and kidneys show no acute process. Cholelithiasis. Punctate left renal calculus without hydronephrosis. Mild to moderate volume ascites. No bowel obstruction, abscess or free air. The appendix is not identified as a discrete structure, however, no secondary findings of appendicitis are identified. Severe arthritic changes left hip. IMPRESSION: Advanced liver cirrhosis is evident. Suspicion for a mass lesion measuring about 4.5 cm is present anterior superior right lobe, very concerning for HCC. Mild to moderate volume ascites. Cholelithiasis. Punctate left renal calculus without hydronephrosis. A limited non-contrast examination was performed as detailed. EXAM DESCRIPTION: RAD - Chest Single View - 06/13/2021 4:17 pm CLINICAL HISTORY: abd distention Chest pain. COMPARISON: No comparisons FINDINGS: Portable technique limits examination quality. The lungs are grossly clear. The heart is normal in size. No displaced fractures. IMPRESSION: No acute intrathoracic process suspected. Conclusions/Impression: TREVOR sp large volume paracentesis. HRS? CKD IV -No NSAIDs -IV Albumin prn -Change IVF 1/2NS -Urine lytes to evaluate TREVOR/ HRS still pending Hyperkalemia -Hold spironolactone -Kayexalte 15g X1 dose. -Low potassium diet Acidosis -Consider oral bicarb prn Moderate malnutrition -Encourage nutrition Anemia in chronic illness -Monitor H&H Liver cirrhosis with ascites Hepatitis C Hepatocellular carcinoma -Monitor LFTs Hepatic encephalopathy -Continue Lactulose
[2021-06-15] MEDS: NACHLORIDE 0.45% 1,000 ML IV SCH (18:31)
[2021-06-15] MEDS: HOME MED (Rifaximin 550 MG Tab) PO SCH (20:37)
[2021-06-15 21:58] VITALS: BMI 21.7
--- NOTE | 2021-06-16 06:11 | P.PN ---
Subjective Date of Service: 06/16/21 Primary Care Provider: Dr. Xavier, GI Dr. Velazquez Chief Complaint: Acute renal failure, hyperkalemia Subjective: Improving, Doing well Physical Examination - Vital Signs Temperature: 97 F Blood Pressure: 135/89 Pulse: 93 Respirations: 19 Pulse Ox (%): 100 Assessment & Plan Discharge Plan: Home Plan to discharge in: 24 Hours Physician Review Additional Text: COVID: Negative CXR: COMPARISON: No comparisons FINDINGS: Portable technique limits examination quality. The lungs are grossly clear. The heart is normal in size. No displaced fractures. IMPRESSION: No acute intrathoracic process suspected. CT Head: COMPARISON: No comparisons TECHNIQUE: All CT scans are performed using dose optimization technique as appropriate and may include automated exposure control or mA/KV adjustment according to patient size. FINDINGS: No intracranial hemorrhage, hydrocephalus or extra-axial fluid collection.Mild generalized brain atrophy is present with mild periventricular and deep white matter chronic microvascular ischemic changes.No areas of brain edema or evidence of midline shift. The paranasal sinuses and mastoids are clear. The calvarium is intact. IMPRESSION: No acute intracranial abnormality. CT Ab: COMPARISON: Abdomen W Contrast dated 04/30/2018 TECHNIQUE: CT imaging of the abdomen and pelvis was performed without contrast. Solid organ, bowel and vascular assessment is limited due to lack of IV and oral contrast. All CT scans are performed using dose optimization technique as appropriate and may include automated exposure control or mA/KV adjustment according to patient size. FINDINGS: The lower lung sims are clear. Advanced liver cirrhosis pattern is seen. Full assessment of the liver parenchyma is limited but there is likely a mass present in the anterior superior right lobe liver measures up to 4.5 cm. This is incompletely assessed on limited noncontrast study. The spleen, pancreas, adrenal glands and kidneys show no acute process. Cholelithiasis. Punctate left renal calculus without hydronephrosis. Mild to moderate volume ascites. No bowel obstruction, abscess or free air. The appendix is not identified as a discrete structure, however, no secondary findings of appendicitis are identified. Severe arthritic changes left hip. IMPRESSION: Advanced liver cirrhosis is evident. Suspicion for a mass lesion measuring about 4.5 cm is present anterior superior right lobe, very concerning for HCC. Mild to moderate volume ascites. Cholelithiasis. Punctate left renal calculus without hydronephrosis. A limited non-contrast examination was performed as detailed. Renal US: COMPARISON: Abdomen Pelvis Wo Contrast dated 06/13/2021 FINDINGS: The right kidney measures 9.5 x 4.4 x 4.8 cm. The left kidney measures 8.9 x 4.9 x 4.6 cm. Renal cortical thickness and echogenicity are normal. No hydronephrosis or suspicious renal mass. No bladder wall thickening or mass. No intraluminal stone or mass. Patient's extensive ascites and liver parenchymal disease were detailed on the June 13 CT study. IMPRESSION: No hydronephrosis or suspicious renal mass. No significant finding. Physical Exam: General: Alert, cooperative. No acute distress. HEENT: Neck supple Respiratory: Clear to auscultation bilaterally, Normal air movement. Currently on room air Cardiovascular: Regular rate/rhythm, Normal S1 S2 Capillary refill: <2 Seconds Gastrointestinal: Normal bowel sounds, No tenderness, No masses, No rebound, No guarding, mild ascites. No significant edema to the lower extremities Musculoskeletal: No tenderness Integumentary: No rashes Neurological: Normal speech, Normal strength at 5/5 x4 extr, Normal tone, Normal affect Impression: Acute on chronic renal failure stage IV with hyperkalemia with recent high output paracentesis Hepatic encephalopathy with advance liver cirrhosis related to hepatitis C complicated with liver cancer with noted mass measuring 4.5 cm to the anterior superior right lobe related to. Hepatocellular carcinoma Anemia of chronic disease GERD Plan: Acute on chronic renal failure stage IV with hyperkalemia with recent high output paracentesis: Hyperkalemia resolved. Renal function still compromised. Continue with IV fluids. Nephrology to consider bicarbonate. Aldactone remains on hold. Renal ultrasound unremarkable. Patient more alert today. Patient back to baseline. Consider possible discharge in the next 24 to 48 hours. Spoke at length with patient and family concerning plan of care. Skilled placement was considered. Patient in family agreeable to skilled placement prior to going home. Will discuss with elementary school social worker. Hepatic encephalopathy with advance liver cirrhosis related to hepatitis C complicated with liver cancer with noted mass measuring 4.5 cm to the anterior superior right lobe related to hepatocellular carcinoma: Ammonia level improved. Patient with better mentation. Continue lactulose. This was adjusted to maintain 3-4 bowel movements per day. Continue with home Xifaxan. Continue Inderal. Patient is to see oncology as an outpatient to address cancer. Family member reports patient had prior embolization to address cancer in the past. Anemia of chronic disease: Overall stable. Monitor closely. GERD: Continue with Protonix DVT PPX: Heparin Code status: Full code Discharge Plan: After long discussion patient and family want skilled placement. Time Spent Managing Pts Care (In Minutes): 55
[2021-06-16 06:41] LABS: Absolute Lymphocytes (CBC) 0.7 K/uL (0.7-4.9); Basophils % 1.2 % (0-1.3); Hematocrit 32.3 % (39.6-49.0); Lymphocytes % 18.4 % (15.3-44.8); MPV 8.7 fL (7.6-11.3); RBC Red Blood Cell Count 3.18 M/uL (4.33-5.43)
[2021-06-16 06:59] LABS: Albumin 2.3 g/dL (3.4-5.0); Bilirubin Total 1.4 mg/dL (0.2-1.0); Magnesium 2.4 mg/dL (1.8-2.4); Potassium 4.6 mmol/L (3.5-5.1); Protein, Total 6.5 g/dL (6.4-8.2)
[2021-06-16] MEDS: HEPARIN 5000 UNIT/ML 1 ML VIAL SQ SCH ×2 (07:33→21:04)
[2021-06-16] MEDS: PANTOPRAZOLE 40 MG INJ IVP SCH (07:42)
[2021-06-16] MEDS: HOME MED (Rifaximin 550 MG Tab) PO SCH ×2 (07:43→21:00)
[2021-06-16] MEDS: LACTULOSE 20 GM/30 ML UCUP PO SCH ×4 (07:44→21:02)
[2021-06-16] MEDS: NACHLORIDE 0.45% 1,000 ML IV SCH ×3 (07:44→21:03)
[2021-06-16] MEDS: PROPRANOLOL HCL 10 MG TAB PO SCH ×2 (07:47→21:02)
[2021-06-16 07:49] LABS: Ferritin 420.4 ng/mL (26-388)
[2021-06-16] MEDS ORDERED: SODIUM BICARB 325 MG TAB PO ONE (13:30)
--- NOTE | 2021-06-16 17:53 | PN ---
Subjective: The patient is alert, awake. His sister is in the room with him and both of them were c ommunicated with. The patient states that he is feeling well overall. He is not having any breathin g difficulty. He understands that he has a liver mass, possibility of cancer that needs to be evalua tammie. He has been treated for similar problem in the past. He was offered to be placed on a liver tr ansplant list a while back by mud cleaner operator, but at that point, the patient had denied or refused lyons splantation and he has chosen not to get one. He currently has some ascites. He has had a paracente sis done. He is stable with his blood pressures. His kidney function with a creatinine of 2.94 is r elatively stable compared to yesterday. BUN is stable. Bicarb is on the lower side, but overall sta ble. Hemoglobin is about 10.8 and reasonably stable. The patient is denying any pain currently. He is not having any breathing difficulty. Objective: Vital Signs: Blood pressure 135/89, pulse about 90 and regular, respirations about 16 an d comfortable, afebrile, O2 sats are about 100% on room air. Lungs: Clear to auscultation. Abdomen: Soft. Extremities: Revealed trace to no edema. Heart: Sounds are regular. Laboratory Data: Reviewed. WBC count 3.9, hemoglobin 10.8, hematocrit 32.3, platelet count is 112. Sodium 142, potassium 4.6, chloride 116, bicarb 16, BUN 33, creatinine 2.94, albumin 2.3. Assessment And Plan: The patient with guarded condition, history of liver cirrhosis with ascites req uiring paracentesis in the past, now with some metabolic acidosis, some acute on chronic kidney injur y with renal function relatively stable, but quite advanced. The patient is awaiting evaluation for his suspicious liver mass and will understand that he will need to follow up with a mud cleaner operator. Mo st likely, consultation with Dr. Crews and Dr. Valencia has been requested also, but they will be se eing him once the patient is discharged from the hospital as per the patient and the sister. The pat ient's volume status seems closer to euvolemic. His blood pressure seems stable. His breathing is o [place]. Assessment And Plan: 1.Acute kidney injury seems to be stabilizing. The patient is advised also to follow up with Dr. Mark angeles, his primary research assistant professor and also with Dr. Hakeem Polk, PCP once acute issues are resolved and marizol jones is back at home. He is on IV fluids with D5 half-normal saline. His renal function seems to be st able. We will repeat BMP and monitor. 2.Hyperkalemia, resolved. 3.Acidosis. We will give a dose of bicarb today and then further bicarb outpatient based on assessm ent and followup for chronic kidney disease care and metabolic acidosis. 4.Moderate malnutrition. Albumin has been on the lower side. The patient is encouraged on balance diet, avoid nonsteroidal antiinflammatory drugs, salt restriction. 5.Liver cirrhosis with question of hepatocellular carcinoma. The patient will need to follow up wit h mud cleaner operator and/or oncologist. The patient understands. Condition is overall guarded. Risks, be nefits of medications were explained. We will give 1 dose of bicarb today. /RUBÉN Voice ID: [id number] Report ID: [id number]
[2021-06-16] MEDS: ENSURE ENLIVE 237 ML CAN PO SCH (21:00)
[2021-06-17 05:41] LABS: Absolute Lymphocytes (CBC) 0.9 K/uL (0.7-4.9); Basophils % 0.8 % (0-1.3); Hematocrit 32.7 % (39.6-49.0); Lymphocytes % 19.5 % (15.3-44.8); MPV 9.2 fL (7.6-11.3)
--- NOTE | 2021-06-17 05:52 | P.PN ---
Subjective Date of Service: 06/17/21 Primary Care Provider: Dr. Xavier, GI Dr. Velazquez Chief Complaint: Acute renal failure, hyperkalemia Subjective: Other (Overall stable. Currently on room air.) Physical Examination - Vital Signs Temperature: 97.2 F Blood Pressure: 151/86 Pulse: 74 Respirations: 20 Pulse Ox (%): 100 Assessment & Plan Discharge Plan: Other ([facility] facility) Plan to discharge in: 48 Hours Physician Review Additional Text: COVID: Negative CXR: COMPARISON: No comparisons FINDINGS: Portable technique limits examination quality. The lungs are grossly clear. The heart is normal in size. No displaced fractures. IMPRESSION: No acute intrathoracic process suspected. CT Head: COMPARISON: No comparisons TECHNIQUE: All CT scans are performed using dose optimization technique as appropriate and may include automated exposure control or mA/KV adjustment according to patient size. FINDINGS: No intracranial hemorrhage, hydrocephalus or extra-axial fluid collection.Mild generalized brain atrophy is present with mild periventricular and deep white matter chronic microvascular ischemic changes.No areas of brain edema or evidence of midline shift. The paranasal sinuses and mastoids are clear. The calvarium is intact. IMPRESSION: No acute intracranial abnormality. CT Ab: COMPARISON: Abdomen W Contrast dated 04/30/2018 TECHNIQUE: CT imaging of the abdomen and pelvis was performed without contrast. Solid organ, bowel and vascular assessment is limited due to lack of IV and oral contrast. All CT scans are performed using dose optimization technique as appropriate and may include automated exposure control or mA/KV adjustment according to patient size. FINDINGS: The lower lung sims are clear. Advanced liver cirrhosis pattern is seen. Full assessment of the liver parenchyma is limited but there is likely a mass present in the anterior superior right lobe liver measures up to 4.5 cm. This is incompletely assessed on limited noncontrast study. The spleen, pancreas, adrenal glands and kidneys show no acute process. Cholelithiasis. Punctate left renal calculus without hydronephrosis. Mild to moderate volume ascites. No bowel obstruction, abscess or free air. The appendix is not identified as a discrete structure, however, no secondary findings of appendicitis are identified. Severe arthritic changes left hip. IMPRESSION: Advanced liver cirrhosis is evident. Suspicion for a mass lesion measuring about 4.5 cm is present anterior superior right lobe, very concerning for HCC. Mild to moderate volume ascites. Cholelithiasis. Punctate left renal calculus without hydronephrosis. A limited non-contrast examination was performed as detailed. Renal US: COMPARISON: Abdomen Pelvis Wo Contrast dated 06/13/2021 FINDINGS: The right kidney measures 9.5 x 4.4 x 4.8 cm. The left kidney measures 8.9 x 4.9 x 4.6 cm. Renal cortical thickness and echogenicity are normal. No hydronephrosis or suspicious renal mass. No bladder wall thickening or mass. No intraluminal stone or mass. Patient's extensive ascites and liver parenchymal disease were detailed on the June 13 CT study. IMPRESSION: No hydronephrosis or suspicious renal mass. No significant finding. Physical Exam: General: Alert, cooperative. No acute distress. HEENT: Neck supple Respiratory: Clear to auscultation bilaterally, Normal air movement. Currently on room air Cardiovascular: Regular rate/rhythm, Normal S1 S2 Capillary refill: <2 Seconds Gastrointestinal: Normal bowel sounds, No tenderness, No masses, No rebound, No guarding, ascites noted. No significant edema to the lower extremities Musculoskeletal: No tenderness Integumentary: No rashes Neurological: Normal speech, Normal strength at 5/5 x4 extr, Normal tone, Normal affect Impression: Acute on chronic renal failure stage IV with hyperkalemia with recent high output paracentesis Hepatic encephalopathy with advance liver cirrhosis related to hepatitis C complicated with liver cancer with noted mass measuring 4.5 cm to the anterior superior right lobe related to. Hepatocellular carcinoma Anemia of chronic disease GERD Plan: Acute on chronic renal failure stage IV with hyperkalemia with recent high output paracentesis: Hyperkalemia resolved. Renal function improved. Patient given bicarbonate yesterday. Patient continues IV fluids. Appreciate nephrology involvement. Patient with ascites. Will arrange for radiology assisted ultrasound-guided paracentesis tomorrow. We'll not remove more than 2 L. Will send fluid for analysis. Patient will require albumin after procedure. Physical therapy and Occupational Therapy to continue with the patient. Case discussed at length with patient and sister concerning plan of care. Both agree skilled placement will be best for the patient. Social work has been consulted to help arrange for this. Sent to skilled placement once approved. I will turn the service over to the hospital seen tomorrow. I will go over the plan of care with him. Hepatic encephalopathy with advance liver cirrhosis related to hepatitis C complicated with liver cancer with noted mass measuring 4.5 cm to the anterior superior right lobe related to hepatocellular carcinoma: Ammonia level still fluctuating. Lactulose adjusted to maintain 3-4 bowel movements per day. Continue with home Xifaxan. Continue Inderal. As mentioned above patient with ascites. Will arrange for ultrasound-guided radiology assisted paracentesis tomorrow. Will make sure no more than 2 L removed. Patient will need albumin after procedure. Will send fluid for analysis. Patient has follow-up with sales and marketing engineer/oncologist soon to evaluate liver cancer. Patient has had prior embolization in the past for cancer. Patient needs close follow-up with GI and hepatology. Anemia of chronic disease: Overall stable. Monitor closely. GERD: Continue with Protonix DVT PPX: Heparin Code status: Full code Discharge Plan: We'll pursue skilled placement. Time Spent Managing Pts Care (In Minutes): 55
[2021-06-17 06:00] LABS: Albumin 2.5 g/dL (3.4-5.0); Bilirubin Total 1.3 mg/dL (0.2-1.0); Magnesium 2.3 mg/dL (1.8-2.4); Potassium 3.9 mmol/L (3.5-5.1); Protein, Total 6.8 g/dL (6.4-8.2)
[2021-06-17] MEDS: LACTULOSE 20 GM/30 ML UCUP PO SCH ×4 (10:39→20:42)
[2021-06-17] MEDS: PROPRANOLOL HCL 10 MG TAB PO SCH ×2 (10:40→20:42)
[2021-06-17] MEDS: HEPARIN 5000 UNIT/ML 1 ML VIAL SQ SCH ×2 (10:41→20:43)
[2021-06-17] MEDS: HOME MED (Rifaximin 550 MG Tab) PO SCH ×2 (10:41→22:58)
[2021-06-17] MEDS: ENSURE ENLIVE 237 ML CAN PO SCH ×2 (10:42→20:45)
[2021-06-17] MEDS ORDERED: SODIUM BICARB 325 MG TAB PO ONE (13:00)
[2021-06-17] MEDS: NACHLORIDE 0.45% 1,000 ML IV SCH (16:26)
[2021-06-18] MEDS: NACHLORIDE 0.45% 1,000 ML IV SCH ×2 (00:20→13:40)
[2021-06-18 04:37] LABS: Absolute Lymphocytes (CBC) 0.8 K/uL (0.7-4.9); Hematocrit 30.9 % (39.6-49.0); Lymphocytes % 19.1 % (15.3-44.8); MPV 9.1 fL (7.6-11.3); RBC Red Blood Cell Count 3.12 M/uL (4.33-5.43)
[2021-06-18 05:23] LABS: Albumin 2.4 g/dL (3.4-5.0); Bilirubin Total 1.3 mg/dL (0.2-1.0); Magnesium 2.4 mg/dL (1.8-2.4); Potassium 4.2 mmol/L (3.5-5.1); Protein, Total 6.4 g/dL (6.4-8.2)
[2021-06-18] MEDS: PANTOPRAZOLE 40MG TABLET PO SCH (07:30)
[2021-06-18] MEDS: PROPRANOLOL HCL 10 MG TAB PO SCH ×2 (08:45→21:00)
[2021-06-18] MEDS: HEPARIN 5000 UNIT/ML 1 ML VIAL SQ SCH ×2 (08:45→21:00)
[2021-06-18] MEDS: LACTULOSE 20 GM/30 ML UCUP PO SCH ×4 (08:54→21:00)
[2021-06-18] MEDS: ENSURE ENLIVE 237 ML CAN PO SCH ×2 (08:54→21:00)
[2021-06-18] MEDS: HOME MED (Rifaximin 550 MG Tab) PO SCH ×2 (08:56→21:00)
--- NOTE | 2021-06-18 09:52 | RAD REPORT ---
EXAM DESCRIPTION: US - Paracentesis Proc Guidance - 06/18/2021 9:28 am CLINICAL HISTORY: Ascites COMPARISON: None. TECHNIQUE: The patient presents for ultrasound-guided paracentesis. The procedure, risks and altern atives were discussed with the patient in detail. Oral and written consent were obtained. Time out p rocedure was performed. The patient had no contraindicated allergy or medication history. Patient wa s off aspirin therapy greater than 12 hours. Preliminary sonographic evaluation identified right lower quadrant access site. The skin and deeper tissues were anesthetized with 1 percent lidocaine. Under direct sonographic visualization, a parace ntesis catheter was advanced into the peritoneal cavity. Approximately 15 mL of bloody tinged ascites was removed and retained for requested laboratory studies. Approximately 2 liters of ascites was rem chani. At the conclusion of the procedure, catheter was withdrawn and a bandage placed at the puncture site. Postprocedure care and precaution instructions were given to the patient. [facility] floor for continued care. IMPRESSION: Ultrasound-guided paracentesis was performed with 2 liters of ascites removed and 15 mL of ascites retained for requested laboratory studies.
[2021-06-19] MEDS: NACHLORIDE 0.45% 1,000 ML IV SCH ×3 (03:00→16:20)
[2021-06-19] MEDS: PANTOPRAZOLE 40MG TABLET PO SCH (07:30)
[2021-06-19] MEDS: ENSURE ENLIVE 237 ML CAN PO SCH ×2 (08:15→21:00)
[2021-06-19] MEDS: HEPARIN 5000 UNIT/ML 1 ML VIAL SQ SCH ×2 (08:15→20:53)
[2021-06-19] MEDS: LACTULOSE 20 GM/30 ML UCUP PO SCH ×4 (08:15→20:49)
[2021-06-19] MEDS: HOME MED (Rifaximin 550 MG Tab) PO SCH ×2 (08:16→21:00)
[2021-06-19] MEDS: PROPRANOLOL HCL 10 MG TAB PO SCH ×2 (08:17→20:50)
[2021-06-19 12:31] LABS: Potassium 3.6 mmol/L (3.5-5.1)
[2021-06-19 12:32] LABS: Absolute Lymphocytes (CBC) 0.8 K/uL (0.7-4.9); Basophils % 0.7 % (0-1.3); Lymphocytes % 17.7 % (15.3-44.8); RBC Red Blood Cell Count 3.19 M/uL (4.33-5.43)
--- NOTE | 2021-06-19 18:44 | P.PN ---
Date of Service: 06/18/21 Vital Signs Temp Pulse Resp BP Pulse Ox 97.8 F 76 18 111/64 99 06/19/21 16:00 06/19/21 16:00 06/19/21 16:00 06/19/21 16:00 06/19/21 16:00 Medications Heparin Sodium (Porcine) (Heparin 5000 Unit/Ml 1 Ml Vial) 5,000 unit SQ Q12HR [facility] Last Admin: 06/19/21 08:15 Dose: 5,000 unit Documented by: Home Med (Home Med (Rifaximin 550 Mg Tab)) 1 ea PO BID [facility]; Protocol Last Admin: 06/19/21 08:16 Dose: 1 ea Documented by: Sodium Chloride (Sodium Chloride 0.45%) 1,000 mls @ 75 mls/hr IV .[id number] [facility] Last Admin: 06/19/21 16:20 Dose: Not Given Documented by: Lactulose (Lactulose 20 Gm/30 Ml Ucup) 20 gm PO QID [facility] Last Admin: 06/19/21 16:09 Dose: 20 gm Documented by: Nutritional Formula (Ensure Enlive 237 Ml Can) 237 ml PO BID [facility] Last Admin: 06/19/21 08:15 Dose: 237 ml Documented by: Ondansetron HCl (Ondansetron 4 Mg/2 Ml Vial) 4 mg IV Q6HP PRN PRN Reason: NAUSEA / VOMITING Pantoprazole Sodium (Pantoprazole 40mg Tablet) 40 mg PO ACB [facility]; Protocol Last Admin: 06/19/21 07:30 Dose: 40 mg Documented by: Propranolol HCl (Propranolol Hcl 10 Mg Tab) 10 mg PO BID [facility] Last Admin: 06/19/21 08:17 Dose: 10 mg Documented by: Sodium Chloride (Flush Normal Saline 10 Ml) 10 ml IV BID [facility] Last Admin: 06/19/21 08:17 Dose: 10 ml Documented by: Tramadol HCl (Tramadol Hcl 50 Mg Tab) 50 mg PO TIDP PRN PRN Reason: Pain scale 2-4 (Mild) Microbiology Results 06/13/21 16:40 Blood - Blood Aerobic Blood Culture - Final No growth in 5 days. 06/13/21 16:40 Blood - Blood Anaerobic Blood Culture - Final Assessment/ Plan: Nephrology Progress Note Fatigue and weakness. Worsening edema. No chest pain or dyspnea No acute events overnight Vitals, medications blood work and imaging reviewed in the chart General: Oriented x3, Cooperative HEENT: Atraumatic Neck: Supple Respiratory: Clear to auscultation bilaterally Cardiovascular: Regular rate/rhythm, Edema Gastrointestinal: Hypoactive, Distended Musculoskeletal: No clubbing, No contractures Integumentary: No rashes, No cyanosis Neurological: Normal speech Laboratory Data (last 24 hrs) 06/13/21 16:40: PT 12.0, INR 1.04, APTT 28.3 06/13/21 16:40: WBC 5.30, Hgb 12.5 L, Hct 36.9 L, Plt Count 118 L 06/13/21 16:40: Sodium 139, Potassium 5.7 H*, BUN 31 H, Creatinine 2.55 H, Glucose 174 H, Magnesium 2.5 H, Total Bilirubin 1.8 H, AST 51 H, ALT 37, Alkaline Phosphatase 149 H Imagings Data: EXAM DESCRIPTION: US - Renal Ultrasound-Complete - 06/14/2021 1:10 am CLINICAL HISTORY: ARF/CKD COMPARISON: Abdomen Pelvis Wo Contrast dated 06/13/2021 FINDINGS: The right kidney measures 9.5 x 4.4 x 4.8 cm. The left kidney measures 8.9 x 4.9 x 4.6 cm. Renal cortical thickness and echogenicity are normal. No hydronephrosis or suspicious renal mass. No bladder wall thickening or mass. No intraluminal stone or mass. Patient's extensive ascites and liver parenchymal disease were detailed on the June 13 CT study. IMPRESSION: No hydronephrosis or suspicious renal mass. No significant finding. EXAM DESCRIPTION: CT - Abdomen Pelvis Wo Contrast - 06/13/2021 6:39 pm CLINICAL HISTORY: Abdominal pain. ABD PAIN COMPARISON: Abdomen W Contrast dated 04/30/2018 TECHNIQUE: CT imaging of the abdomen and pelvis was performed without contrast. Solid organ, bowel and vascular assessment is limited due to lack of IV and oral contrast. All CT scans are performed using dose optimization technique as appropriate and may include automated exposure control or mA/KV adjustment according to patient size. FINDINGS: The lower lung sims are clear. Advanced liver cirrhosis pattern is seen. Full assessment of the liver parenchyma is limited but there is likely a mass present in the anterior superior right lobe liver measures up to 4.5 cm. This is incompletely assessed on limited noncontrast study. The spleen, pancreas, adrenal glands and kidneys show no acute process. Cholelithiasis. Punctate left renal calculus without hydronephrosis. Mild to moderate volume ascites. No bowel obstruction, abscess or free air. The appendix is not identified as a discrete structure, however, no secondary findings of appendicitis are identified. Severe arthritic changes left hip. IMPRESSION: Advanced liver cirrhosis is evident. Suspicion for a mass lesion measuring about 4.5 cm is present anterior superior right lobe, very concerning for HCC. Mild to moderate volume ascites. Cholelithiasis. Punctate left renal calculus without hydronephrosis. A limited non-contrast examination was performed as detailed. EXAM DESCRIPTION: RAD - Chest Single View - 06/13/2021 4:17 pm CLINICAL HISTORY: abd distention Chest pain. COMPARISON: No comparisons FINDINGS: Portable technique limits examination quality. The lungs are grossly clear. The heart is normal in size. No displaced fractures. IMPRESSION: No acute intrathoracic process suspected. Conclusions/Impression: TREVOR sp large volume paracentesis. HRS? CKD IV -No NSAIDs -IV Albumin prn -Gentle IVF 1/2NS Hyperkalemia/ Hypokalemia -Replete potassium Acidosis -Give potassium citrate Moderate malnutrition -Encourage nutrition Anemia in chronic illness -Monitor H&H Liver cirrhosis with ascites Hepatitis C Hepatocellular carcinoma -Monitor LFTs Hepatic encephalopathy -Continue Lactulose
--- NOTE | 2021-06-19 18:47 | P.PN ---
Date of Service: 06/19/21 Vital Signs Temp Pulse Resp BP Pulse Ox 97.8 F 76 18 111/64 99 06/19/21 16:00 06/19/21 16:00 06/19/21 16:00 06/19/21 16:00 06/19/21 16:00 Medications Heparin Sodium (Porcine) (Heparin 5000 Unit/Ml 1 Ml Vial) 5,000 unit SQ Q12HR [facility] Last Admin: 06/19/21 08:15 Dose: 5,000 unit Documented by: Home Med (Home Med (Rifaximin 550 Mg Tab)) 1 ea PO BID [facility]; Protocol Last Admin: 06/19/21 08:16 Dose: 1 ea Documented by: Lactulose (Lactulose 20 Gm/30 Ml Ucup) 20 gm PO QID [facility] Last Admin: 06/19/21 16:09 Dose: 20 gm Documented by: Nutritional Formula (Ensure Enlive 237 Ml Can) 237 ml PO BID [facility] Last Admin: 06/19/21 08:15 Dose: 237 ml Documented by: Ondansetron HCl (Ondansetron 4 Mg/2 Ml Vial) 4 mg IV Q6HP PRN PRN Reason: NAUSEA / VOMITING Pantoprazole Sodium (Pantoprazole 40mg Tablet) 40 mg PO ACB [facility]; Protocol Last Admin: 06/19/21 07:30 Dose: 40 mg Documented by: Potassium Bicarbonate (Potassium 25 Meq Efferv Tab) 25 meq PO 1X ONE Stop: 06/19/21 18:45 Propranolol HCl (Propranolol Hcl 10 Mg Tab) 10 mg PO BID [facility] Last Admin: 06/19/21 08:17 Dose: 10 mg Documented by: Sodium Chloride (Flush Normal Saline 10 Ml) 10 ml IV BID [facility] Last Admin: 06/19/21 08:17 Dose: 10 ml Documented by: Tramadol HCl (Tramadol Hcl 50 Mg Tab) 50 mg PO TIDP PRN PRN Reason: Pain scale 2-4 (Mild) Microbiology Results 06/13/21 16:40 Blood - Blood Aerobic Blood Culture - Final No growth in 5 days. 06/13/21 16:40 Blood - Blood Anaerobic Blood Culture - Final Assessment/ Plan: Nephrology Progress Note Fatigue and weakness. Worsening edema. No chest pain or dyspnea No acute events overnight Vitals, medications blood work and imaging reviewed in the chart General: Oriented x3, Cooperative HEENT: Atraumatic Neck: Supple Respiratory: Clear to auscultation bilaterally Cardiovascular: Regular rate/rhythm, Edema Gastrointestinal: Hypoactive, Distended Musculoskeletal: No clubbing, No contractures Integumentary: No rashes, No cyanosis Neurological: Normal speech Laboratory Data (last 24 hrs) 06/13/21 16:40: PT 12.0, INR 1.04, APTT 28.3 06/13/21 16:40: WBC 5.30, Hgb 12.5 L, Hct 36.9 L, Plt Count 118 L 06/13/21 16:40: Sodium 139, Potassium 5.7 H*, BUN 31 H, Creatinine 2.55 H, Glucose 174 H, Magnesium 2.5 H, Total Bilirubin 1.8 H, AST 51 H, ALT 37, Alkaline Phosphatase 149 H Imagings Data: EXAM DESCRIPTION: US - Renal Ultrasound-Complete - 06/14/2021 1:10 am CLINICAL HISTORY: ARF/CKD COMPARISON: Abdomen Pelvis Wo Contrast dated 06/13/2021 FINDINGS: The right kidney measures 9.5 x 4.4 x 4.8 cm. The left kidney measures 8.9 x 4.9 x 4.6 cm. Renal cortical thickness and echogenicity are normal. No hydronephrosis or suspicious renal mass. No bladder wall thickening or mass. No intraluminal stone or mass. Patient's extensive ascites and liver parenchymal disease were detailed on the June 13 CT study. IMPRESSION: No hydronephrosis or suspicious renal mass. No significant finding. EXAM DESCRIPTION: CT - Abdomen Pelvis Wo Contrast - 06/13/2021 6:39 pm CLINICAL HISTORY: Abdominal pain. ABD PAIN COMPARISON: Abdomen W Contrast dated 04/30/2018 TECHNIQUE: CT imaging of the abdomen and pelvis was performed without contrast. Solid organ, bowel and vascular assessment is limited due to lack of IV and oral contrast. All CT scans are performed using dose optimization technique as appropriate and may include automated exposure control or mA/KV adjustment according to patient size. FINDINGS: The lower lung sims are clear. Advanced liver cirrhosis pattern is seen. Full assessment of the liver parenchyma is limited but there is likely a mass present in the anterior super ior right lobe liver measures up to 4.5 cm. This is incompletely assessed on limited noncontrast study. The spleen, pancreas, adrenal glands and kidneys show no acute process. Cholelithiasis. Punctate left renal calculus without hydronephrosis. Mild to moderate volume ascites. No bowel obstruction, abscess or free air. The appendix is not identified as a discrete structure, however, no secondary f indings of appendicitis are identified. Severe arthritic changes left hip. IMPRESSION: Advanced liver cirrhosis is evident. Suspicion for a mass lesion measuring about 4.5 cm is present anterior superior right lobe, very concerning for HCC. Mild to moderate volume ascites. Cholelithiasis. Punctate left renal calculus without hydronephrosis. A limited non-contrast examination was performed as detailed. EXAM DESCRIPTION: RAD - Chest Single View - 06/13/2021 4:17 pm CLINICAL HISTORY: abd distention Chest pain. COMPARISON: No comparisons FINDINGS: Portable technique limits examination quality. The lungs are grossly clear. The heart is normal in size. No displaced fractures. IMPRESSION: No acute intrathoracic process suspected. Conclusions/Impression: TREVOR sp large volume paracentesis. HRS? CKD IV -No NSAIDs -IV Albumin prn -Discontinue IVF 1/2NS Hyperkalemia/ Hypokalemia -Replete potassium Acidosis -Give potassium citrate Moderate malnutrition -Encourage nutrition Anemia in chronic illness -Monitor H&H Liver cirrhosis with ascites Hepatitis C Hepatocellular carcinoma -Monitor LFTs Hepatic encephalopathy -Continue Lactulose
[2021-06-19] MEDS ORDERED: POTASSIUM 25 MEQ EFFERV TAB PO ONE (18:53)
[2021-06-20 03:45] LABS: Absolute Lymphocytes (CBC) 0.8 K/uL (0.7-4.9); Basophils % 1.2 % (0-1.3); Hematocrit 32.8 % (39.6-49.0); Lymphocytes % 16.6 % (15.3-44.8); MPV 8.5 fL (7.6-11.3); RBC Red Blood Cell Count 3.25 M/uL (4.33-5.43)
[2021-06-20 04:01] LABS: Albumin 2.3 g/dL (3.4-5.0); Bilirubin Total 1.4 mg/dL (0.2-1.0); Potassium 3.6 mmol/L (3.5-5.1); Protein, Total 6.4 g/dL (6.4-8.2); Uric Acid 8.2 mg/dL (3.5-7.2)
[2021-06-20] MEDS ORDERED: POTASSIUM 25 MEQ EFFERV TAB PO ONE (08:15)
--- NOTE | 2021-06-20 08:17 | P.PN ---
Date of Service: 06/20/21 Vital Signs Temp Pulse Resp BP Pulse Ox 97 F 68 16 132/80 100 06/20/21 04:00 06/20/21 04:00 06/20/21 04:00 06/20/21 04:00 06/20/21 04:00 Medications Heparin Sodium (Porcine) (Heparin 5000 Unit/Ml 1 Ml Vial) 5,000 unit SQ Q12HR [facility] Last Admin: 06/19/21 20:53 Dose: 5,000 unit Documented by: Home Med (Home Med (Rifaximin 550 Mg Tab)) 1 ea PO BID [facility]; Protocol Last Admin: 06/19/21 08:16 Dose: 1 ea Documented by: Lactulose (Lactulose 20 Gm/30 Ml Ucup) 20 gm PO QID [facility] Last Admin: 06/19/21 20:49 Dose: 20 gm Documented by: Nutritional Formula (Ensure Enlive 237 Ml Can) 237 ml PO BID [facility] Last Admin: 06/19/21 21:00 Dose: 237 ml Documented by: Ondansetron HCl (Ondansetron 4 Mg/2 Ml Vial) 4 mg IV Q6HP PRN PRN Reason: NAUSEA / VOMITING Pantoprazole Sodium (Pantoprazole 40mg Tablet) 40 mg PO ACB [facility]; Protocol Last Admin: 06/19/21 07:30 Dose: 40 mg Documented by: Potassium Bicarbonate (Potassium 25 Meq Efferv Tab) 25 meq PO 1X ONE Stop: 06/20/21 08:16 Propranolol HCl (Propranolol Hcl 10 Mg Tab) 10 mg PO BID [facility] Last Admin: 06/19/21 20:50 Dose: 10 mg Documented by: Sodium Chloride (Flush Normal Saline 10 Ml) 10 ml IV BID [facility] Last Admin: 06/19/21 21:00 Dose: 10 ml Documented by: Tramadol HCl (Tramadol Hcl 50 Mg Tab) 50 mg PO TIDP PRN PRN Reason: Pain scale 2-4 (Mild) Last Admin: 06/19/21 20:50 Dose: 50 mg Documented by: Microbiology Results 06/13/21 16:40 Blood - Blood Aerobic Blood Culture - Final No growth in 5 days. 06/13/21 16:40 Blood - Blood Anaerobic Blood Culture - Final Assessment/ Plan: Nephrology Progress Note Fatigue and weakness. No chest pain or dyspnea No acute events overnight Vitals, medications blood work and imaging reviewed in the chart General: Oriented x3, Cooperative HEENT: Atraumatic Neck: Supple Respiratory: Clear to auscultation bilaterally Cardiovascular: Regular rate/rhythm, Edema Gastrointestinal: Hypoactive, Distended Musculoskeletal: No clubbing, No contractures Integumentary: No rashes, No cyanosis Neurological: Normal speech Laboratory Data (last 24 hrs) 06/13/21 16:40: PT 12.0, INR 1.04, APTT 28.3 06/13/21 16:40: WBC 5.30, Hgb 12.5 L, Hct 36.9 L, Plt Count 118 L 06/13/21 16:40: Sodium 139, Potassium 5.7 H*, BUN 31 H, Creatinine 2.55 H, Glucose 174 H, Magnesium 2.5 H, Total Bilirubin 1.8 H, AST 51 H, ALT 37, Alkaline Phosphatase 149 H Imagings Data: EXAM DESCRIPTION: US - Renal Ultrasound-Complete - 06/14/2021 1:10 am CLINICAL HISTORY: ARF/CKD COMPARISON: Abdomen Pelvis Wo Contrast dated 06/13/2021 FINDINGS: The right kidney measures 9.5 x 4.4 x 4.8 cm. The left kidney measures 8.9 x 4.9 x 4.6 cm. Renal cortical thickness and echogenicity are normal. No hydronephrosis or suspicious renal mass. No bladder wall thickening or mass. No intraluminal stone or mass. Patient's extensive ascites and liver parenchymal disease were detailed on the June 13 CT study. IMPRESSION: No hydronephrosis or suspicious renal mass. No significant finding. EXAM DESCRIPTION: CT - Abdomen Pelvis Wo Contrast - 06/13/2021 6:39 pm CLINICAL HISTORY: Abdominal pain. ABD PAIN COMPARISON: Abdomen W Contrast dated 04/30/2018 TECHNIQUE: CT imaging of the abdomen and pelvis was performed without contrast. Solid organ, bowel and vascular assessment is limited due to lack of IV and oral contrast. All CT scans are performed using dose optimization technique as appropriate and may include automated exposure control or mA/KV adjustment according to patient size. FINDINGS: The lower lung sims are clear. Advanced liver cirrhosis pattern is seen. Full assessment of the liver parenchyma is limited but there is likely a mass present in the anterior superior right lobe liver measures up to 4.5 cm. This is incompletely assessed on limited noncontrast study. The spleen, pancreas, adrenal glands and kidneys show no acute process. Cholelithiasis. Punctate left renal calculus without hydronephrosis. Mild to moderate volume ascites. No bowel obstruction, abscess or free air. The appendix is not identified as a discrete structure, however, no secondary findings of appendicitis are identified. Severe arthritic changes left hip. IMPRESSION: Advanced liver cirrhosis is evident. Suspicion for a mass lesion measuring about 4.5 cm is present anterior superior right lobe, very concerning for HCC. Mild to moderate volume ascites. Cholelithiasis. Punctate left renal calculus without hydronephrosis. A limited non-contrast examination was performed as detailed. EXAM DESCRIPTION: RAD - Chest Single View - 06/13/2021 4:17 pm CLINICAL HISTORY: abd distention Chest pain. COMPARISON: No comparisons FINDINGS: Portable technique limits examination quality. The lungs are grossly clear. The heart is normal in size. No displaced fractures. IMPRESSION: No acute intrathoracic process suspected. Conclusions/Impression: TREVOR sp large volume paracentesis. HRS? CKD IV -No NSAIDs -IV Albumin prn Hyperkalemia/ Hypokalemia -Replete potassium again Acidosis -Give potassium citrate again -Start oral bicarb Moderate malnutrition -Encourage nutrition Anemia in chronic illness -Monitor H&H Liver cirrhosis with ascites Hepatitis C Hepatocellular carcinoma -Monitor LFTs Hepatic encephalopathy -Continue Lactulose
[2021-06-20] MEDS: ENSURE ENLIVE 237 ML CAN PO SCH ×2 (09:00→21:19)
[2021-06-20] MEDS: PANTOPRAZOLE 40MG TABLET PO SCH (09:35)
[2021-06-20] MEDS: LACTULOSE 20 GM/30 ML UCUP PO SCH ×4 (09:35→21:19)
[2021-06-20] MEDS: HOME MED (Rifaximin 550 MG Tab) PO SCH (09:36)
[2021-06-20] MEDS: HEPARIN 5000 UNIT/ML 1 ML VIAL SQ SCH ×2 (09:36→21:19)
[2021-06-20] MEDS: PROPRANOLOL HCL 10 MG TAB PO SCH ×2 (09:36→21:20)
[2021-06-20] MEDS: SODIUM BICARB 325 MG TAB PO SCH ×2 (09:41→21:19)
[2021-06-20 11:45] VITALS: O2SAT 100
[2021-06-20] MEDS ORDERED: ALBUMIN HUMAN 25% 100 ML IV ONE (14:30)
[2021-06-20 15:06] LABS: Absolute Lymphocytes (CBC) 0.7 K/uL (0.7-4.9); Basophils % 0.5 % (0-1.3); Hematocrit 29.9 % (39.6-49.0); Lymphocytes % 15.2 % (15.3-44.8); MPV 8.7 fL (7.6-11.3); RBC Red Blood Cell Count 2.95 M/uL (4.33-5.43)
[2021-06-20 15:30] LABS: Albumin 2.6 g/dL (3.4-5.0); Bilirubin Total 1.3 mg/dL (0.2-1.0); Magnesium 2.5 mg/dL (1.8-2.4); Protein, Total 6.6 g/dL (6.4-8.2)
[2021-06-21] MEDS: PROPRANOLOL HCL 10 MG TAB PO SCH ×2 (08:46→21:03)
[2021-06-21] MEDS: SODIUM BICARB 325 MG TAB PO SCH ×2 (08:46→21:03)
[2021-06-21] MEDS: ENSURE ENLIVE 237 ML CAN PO SCH ×2 (08:47→21:00)
[2021-06-21] MEDS: LACTULOSE 20 GM/30 ML UCUP PO SCH ×4 (08:47→21:04)
[2021-06-21] MEDS: PANTOPRAZOLE 40MG TABLET PO SCH (08:47)
[2021-06-21] MEDS: HEPARIN 5000 UNIT/ML 1 ML VIAL SQ SCH ×2 (08:47→21:04)
[2021-06-21] MEDS: RIFAXIMIN 550 MG TABLET PO SCH ×2 (08:48→09:00)
--- NOTE | 2021-06-21 10:59 | P.PN ---
Date of Service: 06/21/21 Vital Signs Temp Pulse Resp BP Pulse Ox 97.1 F 63 18 136/73 100 06/21/21 08:00 06/21/21 08:46 06/21/21 08:00 06/21/21 08:46 06/21/21 08:00 Medications Heparin Sodium (Porcine) (Heparin 5000 Unit/Ml 1 Ml Vial) 5,000 unit SQ Q12HR [facility] BEDS AT [facility] Last Admin: 06/21/21 08:47 Dose: 5,000 unit Documented by: Home Med (Rifaximin 550 Mg Tablet) 1 ea PO DAILY [facility] 234 BEDS AT [facility]; Protocol Last Admin: 06/21/21 08:48 Dose: Not Given Documented by: Lactulose (Lactulose 20 Gm/30 Ml Ucup) 20 gm PO QID [facility] 234 BEDS AT [facility] Last Admin: 06/21/21 08:47 Dose: 20 gm Documented by: Nutritional Formula (Ensure Enlive 237 Ml Can) 237 ml PO BID [facility] 234 BEDS AT [facility] Last Admin: 06/21/21 08:47 Dose: 237 ml Documented by: Ondansetron HCl (Ondansetron 4 Mg/2 Ml Vial) 4 mg IV Q6HP PRN PRN Reason: NAUSEA / VOMITING Last Admin: 06/20/21 09:45 Dose: 4 mg Documented by: Pantoprazole Sodium (Pantoprazole 40mg Tablet) 40 mg PO ACB [facility]S [facility] 234 BEDS AT [facility]; Protocol Last Admin: 06/21/21 08:47 Dose: 40 mg Documented by: Propranolol HCl (Propranolol Hcl 10 Mg Tab) 10 mg PO BID [facility] 234 BEDS AT [facility] Last Admin: 06/21/21 08:46 Dose: 10 mg Documented by: Sodium Bicarbonate (Sodium Bicarb 325 Mg Tab) 325 mg PO BID [facility] 234 BEDS AT [facility] Last Admin: 06/21/21 08:46 Dose: 325 mg Documented by: Sodium Chloride (Flush Normal Saline 10 Ml) 10 ml IV BID [facility] 234 BEDS AT [facility] Last Admin: 06/21/21 08:49 Dose: 10 ml Documented by: Tramadol HCl (Tramadol Hcl 50 Mg Tab) 50 mg PO TIDP PRN PRN Reason: Pain scale 2-4 (Mild) Last Admin: 06/19/21 20:50 Dose: 50 mg Documented by: Microbiology Results 06/13/21 16:40 Blood - Blood Aerobic Blood Culture - Final No growth in 5 days. 06/13/21 16:40 Blood - Blood Anaerobic Blood Culture - Final Assessment/ Plan: Nephrology Progress Note Fatigue and weakness. More awake today. No chest pain or dyspnea No acute events overnight Vitals, medications blood work and imaging reviewed in the chart General: Oriented x3, Cooperative HEENT: Atraumatic Neck: Supple Respiratory: Clear to auscultation bilaterally Cardiovascular: Regular rate/rhythm, Edema Gastrointestinal: Hypoactive, Distended Musculoskeletal: No clubbing, No contractures Integumentary: No rashes, No cyanosis Neurological: Normal speech Laboratory Data (last 24 hrs) 06/13/21 16:40: PT 12.0, INR 1.04, APTT 28.3 06/13/21 16:40: WBC 5.30, Hgb 12.5 L, Hct 36.9 L, Plt Count 118 L 06/13/21 16:40: Sodium 139, Potassium 5.7 H*, BUN 31 H, Creatinine 2.55 H, Glucose 174 H, Magnesium 2.5 H, Total Bilirubin 1.8 H, AST 51 H, ALT 37, Alkaline Phosphatase 149 H Imagings Data: EXAM DESCRIPTION: US - Renal Ultrasound-Complete - 06/14/2021 1:10 am CLINICAL HISTORY: ARF/CKD COMPARISON: Abdomen Pelvis Wo Contrast dated 06/13/2021 FINDINGS: The right kidney measures 9.5 x 4.4 x 4.8 cm. The left kidney measures 8.9 x 4.9 x 4.6 cm. Renal cortical thickness and echogenicity are normal. No hydronephrosis or suspicious renal mass. No bladder wall thickening or mass. No intraluminal stone or mass. Patient's extensive ascites and liver parenchymal disease were detailed on the June 13 CT study. IMPRESSION: No hydronephrosis or suspicious renal mass. No significant finding. EXAM DESCRIPTION: CT - Abdomen Pelvis Wo Contrast - 06/13/2021 6:39 pm CLINICAL HISTORY: Abdominal pain. ABD PAIN COMPARISON: Abdomen W Contrast dated 04/30/2018 TECHNIQUE: CT imaging of the abdomen and pelvis was performed without contrast. Solid organ, bowel and vascular assessment is limited due to lack of IV and oral contrast. All CT scans are performed using dose optimization technique as appropriate and may include automated exposure control or mA/KV adjustment according to patient size. FINDINGS: The lower lung sims are clear. Advanced liver cirrhosis pattern is seen. Full assessment of the liver parenchyma is limited but there is likely a mass present in the anterior superior right lobe liver measures up to 4.5 cm. This is incompletely assessed on limited noncontrast study. The spleen, pancreas, adrenal glands and kidneys show no acute process. Cholelithiasis. Punctate left renal calculus without hydronephrosis. Mild to moderate volume ascites. No bowel obstruction, abscess or free air. The appendix is not identified as a discrete structure, however, no secondary findings of appendicitis are identified. Severe arthritic changes left hip. IMPRESSION: Advanced liver cirrhosis is evident. Suspicion for a mass lesion measuring about 4.5 cm is present anterior superior right lobe, very concerning for HCC. Mild to moderate volume ascites. Cholelithiasis. Punctate left renal calculus without hydronephrosis. A limited non-contrast examination was performed as detailed. EXAM DESCRIPTION: RAD - Chest Single View - 06/13/2021 4:17 pm CLINICAL HISTORY: abd distention Chest pain. COMPARISON: No comparisons FINDINGS: Portable technique limits examination quality. The lungs are grossly clear. The heart is normal in size. No displaced fractures. IMPRESSION: No acute intrathoracic process suspected. Conclusions/Impression: TREVOR sp large volume paracentesis. HRS? CKD IV -No NSAIDs -IV Albumin prn Hyperkalemia/ Hypokalemia -Replete potassium prn Acidosis -Continue oral bicarb Moderate malnutrition -Encourage nutrition Anemia in chronic illness -Monitor H&H Liver cirrhosis with ascites Hepatitis C Hepatocellular carcinoma -Monitor LFTs Hepatic encephalopathy -Continue Lactulose
--- NOTE | 2021-06-21 16:50 | P.PN ---
Subjective Date of Service: 06/18/21 Subjective: Improving CHART REVIEWED; EVENTS NOTED Review of Systems 10-point ROS is otherwise unremarkable Physical Examination - Vital Signs Temperature: 97.3 F Blood Pressure: 146/74 Pulse: 67 Respirations: 16 Pulse Ox (%): 100 - Physical Exam General: Alert, In no apparent distress, Oriented x3 Respiratory: Clear to auscultation bilaterally, Normal air movement Cardiovascular: Regular rate/rhythm, Normal S1 S2, No murmurs Gastrointestinal: Normal bowel sounds, Soft and benign, Non-distended, No tenderness Musculoskeletal: No clubbing, No swelling, No tenderness Neurological: Sensation intact, Cranial nerves 3-12 intact - Studies Medications List Reviewed: Yes Assessment & Plan - Problems (Diagnosis) (1) Cirrhosis Current Visit: Yes Status: Acute (2) Hepatic encephalopathy Current Visit: Yes Status: Acute (3) CKD (chronic kidney disease) Current Visit: Yes Status: Acute - Plan PLAN: 1. LACTULOSE AND RIFAXIMIN 2. PT 3. TRANSFER TO [place] 4. OUTPT FISH TENDER Discharge Plan: Home Plan to discharge in: Greater than 2 days - Advance Directives Does patient have a Living Will: No Does patient have a Durable POA for Healthcare: No - Code Status/Comfort Care Code Status Assessed: Yes Code Status: Full Code Critical Care: No Time Spent Managing PTS Care (In Minutes): 35
--- NOTE | 2021-06-21 16:52 | P.PN ---
Date of Service: 06/19/21 Subjective PT MORE FATIGUED AND REFUSING TO EAT; NOT IMPROVING Review of Systems 10-point ROS is otherwise unremarkable Physical Examination - Vital Signs REVIEWED - Physical Exam General: Alert, In no apparent distress, Oriented x3 Respiratory: Clear to auscultation bilaterally, Normal air movement Cardiovascular: Regular rate/rhythm, Normal S1 S2, No murmurs Gastrointestinal: Normal bowel sounds, Soft and benign, Non-distended, No tenderness Musculoskeletal: No clubbing, No swelling, No tenderness Neurological: Sensation intact, Cranial nerves 3-12 intact Assessment & Plan - Problems (Diagnosis) (1) Cirrhosis Current Visit: Yes Status: Acute (2) Hepatic encephalopathy Current Visit: Yes Status: Acute (3) CKD (chronic kidney disease) Current Visit: Yes Status: Acute - Plan CONTINUE WITH POC: 1. LACTULOSE AND RIFAXIMIN 2. PT 3. TRANSFER TO [place] 4. OUTPT OPTICAL LABORATORY MANAGER
--- NOTE | 2021-06-21 16:55 | P.PN ---
Date of Service: 06/20/21 Subjective PT STIL NOT IMPROVING; SPOKE TO FAMILY RE: POC NOT IMPROVING AND WON'T DO WELL WITH SNF; CONTEMPLATING HOSPICE Review of Systems 10-point ROS is otherwise unremarkable Physical Examination - Vital Signs REVIEWED - Physical Exam General: Alert, CONFUSED AND LETHARGIC Respiratory: BASILAR CRACKLES Cardiovascular: Regular rate/rhythm, Normal S1 S2, No murmurs Gastrointestinal: Normal bowel sounds, Soft and benign, Non-distended, No tenderness Musculoskeletal: LOWER EXTREMITY EDEMA Neurological: CONFUSED BUT FOLLOWS COMMANDS Assessment & Plan - Problems (Diagnosis) (1) Cirrhosis Current Visit: Yes Status: Acute (2) Hepatic encephalopathy Current Visit: Yes Status: Acute (3) CKD (chronic kidney disease) Current Visit: Yes Status: Acute - Plan CONTINUE WITH POC: 1. LACTULOSE AND RIFAXIMIN(ONCE DAILY); REPEAT [place] LEVEL 2. PT-NOT REALLY WORKING 3. TRANSFER TO [place] ON HOLD; MAY NEED HOSPICE 4. OUTPT BLANCHING MACHINE OPERATOR IF IMPROVES; NO TRANSPLANT SO MAY NEED HOSPICE
--- NOTE | 2021-06-21 16:56 | P.PN ---
Date of Service: 06/21/21 Subjective Patient is not really doing much better. Will plan to proceed with hospice care per family's wishes Review of Systems 10-point ROS is otherwise unremarkable Physical Examination - Vital Signs REVIEWED - Physical Exam General: Alert, CONFUSED AND LETHARGIC Respiratory: BASILAR CRACKLES Cardiovascular: Regular rate/rhythm, Normal S1 S2, No murmurs Gastrointestinal: Normal bowel sounds, Soft and benign, Non-distended, No tenderness Musculoskeletal: LOWER EXTREMITY EDEMA Neurological: CONFUSED BUT FOLLOWS COMMANDS Assessment & Plan - Problems (Diagnosis) (1) Cirrhosis Current Visit: Yes Status: Acute (2) Hepatic encephalopathy Current Visit: Yes Status: Acute (3) CKD (chronic kidney disease) Current Visit: Yes Status: Acute - Plan CONTINUE WITH POC: 1. LACTULOSE AND RIFAXIMIN(ONCE DAILY); REPEAT [place] LEVEL 2. PT-NOT REALLY WORKING 3. TRANSFER TO [place] ON HOLD; MAY NEED HOSPICE 4. OUTPT HATCHERY WORKER IF IMPROVES; NO TRANSPLANT SO MAY NEED HOSPICE
[2021-06-22] MEDS ORDERED: HYDROCORTISONE SUC 100 MG INJ IV SCH (06:00)
[2021-06-22] MEDS: HYDROCORTISONE SUC 100 MG INJ IV SCH ×3 (06:00→16:03)
[2021-06-22] MEDS ORDERED: WATER FOR INJ,STERILE 10 ML IV SCH (08:00)
[2021-06-22] MEDS: ENSURE ENLIVE 237 ML CAN PO SCH ×2 (09:00→19:57)
[2021-06-22] MEDS: RIFAXIMIN 550 MG TABLET PO SCH (09:00)
[2021-06-22] MEDS: PANTOPRAZOLE 40MG TABLET PO SCH (09:30)
[2021-06-22] MEDS: HEPARIN 5000 UNIT/ML 1 ML VIAL SQ SCH ×2 (09:32→19:58)
[2021-06-22] MEDS: LACTULOSE 20 GM/30 ML UCUP PO SCH ×4 (09:37→19:57)
[2021-06-22] MEDS: SODIUM BICARB 325 MG TAB PO SCH ×2 (09:40→19:59)
--- NOTE | 2021-06-22 09:45 | RAD REPORT ---
EXAM DESCRIPTION: US - Paracentesis Proc Guidance - 06/22/2021 9:19 am CLINICAL HISTORY: ascites Ascites COMPARISON: Paracentesis Proc Guidance dated 06/18/2021 FINDINGS: Informed consent was obtained and time-out was performed. Patient's abdomen was prepped and draped in the usual sterile fashion. 1% lidocaine was used for loca l anesthetic purposes. A small skin incision was made. A paracentesis catheter was guided into the peroneal cavity under son ographic guidance. A small amount of fluid was sent for requested lab studies. 2 liters paracentesis was performed. The patient tolerated the procedure well. Patient was administered IV albumin per protocol following the procedure. IMPRESSION: Successful ultrasound-guided paracentesis.
[2021-06-22] MEDS: PROPRANOLOL HCL 10 MG TAB PO SCH ×2 (09:57→19:57)
--- NOTE | 2021-06-22 17:46 | P.PN ---
Date of Service: 06/22/21 Subjective Patient's hospice care team was not able to get everything set up today. Holding discharge still in the a.m.. Continue with palliative care and comfort measures. Review of Systems 10-point ROS is otherwise unremarkable Physical Examination - Vital Signs REVIEWED - Physical Exam General: Alert, CONFUSED AND LETHARGIC Respiratory: BASILAR CRACKLES Cardiovascular: Regular rate/rhythm, Normal S1 S2, No murmurs Gastrointestinal: Normal bowel sounds, Soft and benign, Non-distended, No tende rness Musculoskeletal: LOWER EXTREMITY EDEMA Neurological: CONFUSED BUT FOLLOWS COMMANDS Assessment & Plan - Problems (Diagnosis) (1) Cirrhosis Current Visit: Yes Status: Acute (2) Hepatic encephalopathy Current Visit: Yes Status: Acute (3) CKD (chronic kidney disease) Current Visit: Yes Status: Acute - Plan CONTINUE WITH POC: 1. Continue medication for hepatic encephalopathy 2. Unable to work with physical therapy 3. Transfer to hospice 4. Comfort measures
[2021-06-23] MEDS: HYDROCORTISONE SUC 100 MG INJ IV SCH ×2 (01:35→08:54)
[2021-06-23 08:32] VITALS: BP 118/65; TEMP 97.7
[2021-06-23] MEDS: PANTOPRAZOLE 40MG TABLET PO SCH (08:48)
[2021-06-23] MEDS: LACTULOSE 20 GM/30 ML UCUP PO SCH (08:48)
[2021-06-23] MEDS: HEPARIN 5000 UNIT/ML 1 ML VIAL SQ SCH (08:49)
[2021-06-23] MEDS: SODIUM BICARB 325 MG TAB PO SCH (08:49)
[2021-06-23] MEDS: ENSURE ENLIVE 237 ML CAN PO SCH (08:50)
[2021-06-23] MEDS: PROPRANOLOL HCL 10 MG TAB PO SCH (08:53)
[2021-06-23] MEDS: RIFAXIMIN 550 MG TABLET PO SCH (08:58)
--- NOTE | 2021-06-23 11:31 | P.PN ---
Date of Service: 06/22/21 Vital Signs Temp Pulse Resp BP Pulse Ox 97.7 F 71 16 118/65 100 06/23/21 08:00 06/23/21 08:53 06/23/21 08:00 06/23/21 08:53 06/23/21 08:00 Microbiology Results 06/13/21 16:40 Blood - Blood Aerobic Blood Culture - Final No growth in 5 days. 06/13/21 16:40 Blood - Blood Anaerobic Blood Culture - Final Assessment/ Plan: Nephrology Progress Note Fatigue and weakness. More awake today. Paracentesis earlier today No chest pain or dyspnea No acute events overnight Vitals, medications blood work and imaging reviewed in the chart General: Oriented x3, Cooperative HEENT: Atraumatic Neck: Supple Respiratory: Clear to auscultation bilaterally Cardiovascular: Regular rate/rhythm, Edema Gastrointestinal: Hypoactive, Distended Musculoskeletal: No clubbing, No contractures Integumentary: No rashes, No cyanosis Neurological: Normal speech Laboratory Data (last 24 hrs) 06/13/21 16:40: PT 12.0, INR 1.04, APTT 28.3 06/13/21 16:40: WBC 5.30, Hgb 12.5 L, Hct 36.9 L, Plt Count 118 L 06/13/21 16:40: Sodium 139, Potassium 5.7 H*, BUN 31 H, Creatinine 2.55 H, Glucose 174 H, Magnesium 2.5 H, Total Bilirubin 1.8 H, AST 51 H, ALT 37, Alkaline Phosphatase 149 H Imagings Data: EXAM DESCRIPTION: US - Renal Ultrasound-Complete - 06/14/2021 1:10 am CLINICAL HISTORY: ARF/CKD COMPARISON: Abdomen Pelvis Wo Contrast dated 06/13/2021 FINDINGS: The right kidney measures 9.5 x 4.4 x 4.8 cm. The left kidney measures 8.9 x 4.9 x 4.6 cm. Renal cortical thickness and echogenicity are normal. No hydronephrosis or suspicious renal mass. No bladder wall thickening or mass. No intraluminal stone or mass. Patient's extensive ascites and liver parenchymal disease were detailed on the June 13 CT study. IMPRESSION: No hydronephrosis or suspicious renal mass. No significant finding. EXAM DESCRIPTION: CT - Abdomen Pelvis Wo Contrast - 06/13/2021 6:39 pm CLINICAL HISTORY: Abdominal pain. ABD PAIN COMPARISON: Abdomen W Contrast dated 04/30/2018 TECHNIQUE: CT imaging of the abdomen and pelvis was performed without contrast. Solid organ, bowel and vascular assessment is limited due to lack of IV and oral contrast. All CT scans are performed using dose optimization technique as appropriate and may include automated exposure control or mA/KV adjustment according to patient size. FINDINGS: The lower lung sims are clear. Advanced liver cirrhosis pattern is seen. Full assessment of the liver parenchyma is limited but there is likely a mass present in the anterior superior right lobe liver measures up to 4.5 cm. This is incompletely assessed on limited noncontrast study. The spleen, pancreas, adrenal glands and kidneys show no acute process. Cholelithiasis. Punctate left renal calculus without hydronephrosis. Mild to moderate volume ascites. No bowel obstruction, abscess or free air. The appendix is not identified as a discrete structure, however, no secondary findings of appendicitis are identified. Severe arthritic changes left hip. IMPRESSION: Advanced liver cirrhosis is evident. Suspicion for a mass lesion measuring about 4.5 cm is present anterior superior right lobe, very concerning for HCC. Mild to moderate volume ascites. Cholelithiasis. Punctate left renal calculus without hydronephrosis. A limited non-contrast examination was performed as detailed. EXAM DESCRIPTION: RAD - Chest Single View - 06/13/2021 4:17 pm CLINICAL HISTORY: abd distention Chest pain. COMPARISON: No comparisons FINDINGS: Portable technique limits examination quality. The lungs are grossly clear. The heart is normal in size. No displaced fractures. IMPRESSION: No acute intrathoracic process suspected. Conclusions/Impression: TREVOR sp large volume paracentesis. HRS? CKD IV -No NSAIDs -IV Albumin prn Hyperkalemia/ Hypokalemia -Replete potassium prn Acidosis -Continue oral bicarb Moderate malnutrition -Encourage nutrition Anemia in chronic illness -Monitor H&H Liver cirrhosis with ascites Hepatitis C Hepatocellular carcinoma -Monitor LFTs Hepatic encephalopathy -Continue Lactulose
--- NOTE | 2021-06-23 12:03 | CON ---
Date of Consultation: 06/22/2021 Brief History Of Present Illness: The patient is a 66-year-old male with a history of cirr hosis of the liver secondary to hepatitis C, liver cancer, chronic kidney disease, presents to emerge ncy department with altered mental status on 06/13/2021. He had been seen by Dr. Xavier and Dr. Caroline berry or his ongoing care regarding his chronic issues, but had significant worsening of his symptoms. He had a paracentesis of approximately 7 L 2 weeks prior to his admission to the hospital. He was seen in the emergency department, found to be quite distended once again. He had been admitted to the [facility]. He ultimately received another paracentesis on 06/22 in the morning of 11 o'clock, which appr oximately 2 L pulled off by report. I am requested to see the patient regarding placement of a palli ative paracentesis PleurX catheter. Past Medical History: Cirrhosis, hepatitis C, liver cancer, CKD. Past Surgical History: Includes left hip surgery and multiple paracenteses in the past. Family History: He lives alone, but has family who cares for him by visiting. His mother had diabet es. Social History: He smokes cigarettes for his the majority of his life. Alcohol denied. Review of Systems: Ten-point review of systems other than HPI, he denies. Physical Examination: General: At time of my examination, he generally is thin and frail with ascitic appearing abdomen, d istended appearing abdomen. HEENT: Otherwise, atraumatic. His mucous membranes are moist. He has icteric sclerae and subungual jaundice. Neck: Supple without JVD. Chest: Normal expansion and excursion. Cardiovascular: Regular rate and rhythm. Pulmonary: Clear to auscultation bilaterally. Abdomen: Distended, soft. No tenderness. No rebound. No guarding. No focal peritonitis. Skin: Otherwise warm and dry and jaundiced in appearance with discoloration and ashen appearance. Vital Signs: At time of my examination were a temperature 97.8, heart rate 76, respiratory rate 16, blood pressure 127/70, SpO2 of 99% on room air. His BMI is 21.7. Laboratory Data: Which revealed a white blood cell count on 06/20 of 4.6, hemoglobin 10.3, hematocri t 29.9, platelet count was 105. His coags showed a PT 12.0, INR 1.04, PTT is 28.3. His chemistry fr 06/20 showed a sodium 143, potassium 4.0, chloride 117, carbon dioxide 15, BUN 36, creatinine 2.3, glucose is 169. His total bilirubin was 1.3, AST 48, ALT 39, alkaline phosphatase was 124. Ammonia level was 105. He had no imaging other than an abdominal CT, which was relevant to my examination o n 06/13 officially read as advanced liver cirrhosis, evidence suspicion for CHAVEZ lesion about 4.5 cm present anterior, superior to the right lobe, very concerning for HCC, mild to moderate volume ascite s, cholelithiasis, punctate left renal calculus without hydronephrosis. Assessment And Plan: This is a 66-year-old male, who comes in with signs and symptoms of ongoing cir rhosis with recurrent ascites. 1.Continue medical management. 2.The patient has decided for palliative care and as such, I am consulted to see the patient regardi ng placement of a PleurX catheter for palliation of his ongoing ascites requiring frequent paracentes is. I have ultrasound of his abdomen today and found that in fact he has minimal fluid as he had a p aracentesis earlier this morning and there is not significant fluid accumulation at this point, and a s such, I find that there is not a good safe landing position for the catheter as his small bowel is in close apposition to his abdominal wall and is very mobile at this point. Therefore, I recommend p lacement of a PleurX catheter after he has reaccumulation of ascites fluid and as such, I have discus sed this plan with the patient and his caregiver, who agree to take him home on hospice and will ulti mately decide whether they wish to come back for placement of the PleurX catheter as an outpatient pa lliative procedure. I have explained risks, benefits, and alternatives of the above stated plan. The patient agrees to proceed as indicated. LOYD/RUBÉN Voice ID: [id number] Report ID: [id number]
--- OUTSIDE RECORDS SUMMARY | 2021-06-29 16:27 | XMS REPORT | Continuity of Care Document ---
:1955 Author Organization [facility] t Address [address] [place] [address] Care Team Providers Name Role Phone STEPHY, Hernando Primary Care Physician Unavailable Melinda CASTELLON Attending Clinician Unavailable [place] REDDY Attending Clinician Unavailable Radiology Attending Clinician Unavailable Pob, Lab Main Attending Clinician Unavailable Bhargavi KAUR Attending Clinician RADIOLOGY Attending Clinician Unavailable Doctor Unassigned, Name Attending Clinician Unavailable [place] Reddy MD Attending Clinician Beto KAUR Attending Clinician Melvin Hamilton MD Attending Clinician MELVIN HAMILTON Attending Clinician Unavailable [place] Heller MD Attending Clinician [place] HELLER Attending Clinician Unavailable David Duke DO Attending Clinician [facility] Attending Clinician Unavailable Pathology Attending Clinician Unavailable PATHOLOGY Attending Clinician Unavailable BETO Attending Clinician Unavailable Elena Brizuela MD Attending Clinician Nurse, Gastro Attending Clinician Unavailable 2, Lab Attending Clinician Unavailable Hernando Ibrahim MD Attending Clinician Fani Stauffer MD Attending Clinician Cyndi Sidhu MD Attending Clinician 1, Lab Attending Clinician Unavailable ELENA BRIZUELA Attending Clinician Unavailable Payers Payer Name Policy Type Policy Number Effective Date Expiration Date [place] araujo MEDICARE PART A \\T\\ [id number] 2018 B 00:00:00 [facility] [id number] 2019 00:00:00 Problems Condition Condition Condition Status Onset Resolution Last Treating Co mments Source Name Details Category Date Date Treatment Clinician Date 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 Per [place] from [place] Chronic Chronic Disease Active 2017-08 Univers hepatitis hepatitis 2-10 it[place] C without [place] without [place] hepatic hepatic 00 Medical coma coma Branch Liver mass Liver mass Disease Active 2017-08 U nivers 2-10 ity of 00:00: [place] 00 Medical Branch Other Other Disease Active 2017-08 Univers cirrhosis cirrhosis 2-10 ity of of liver of liver 00:00: [place] 00 Medical Branch Hypersplen Hypersplen Disease Active 2017-08 U nivers ism ism 2-10 ity of 00:00: [place] 00 Medical Branch RIGHT Diagnosis Active 2017-082018-06-17 Mem oria ANTERIOR 0-18 15:20:00 l LOBE LIVER RIGHT 00:00: Stephenie nn MASS ANTERIOR 00 LOBE LIVER MASS Active 06/04/2018 Monserrat Velazquez HEPATOMEGA Diagnosis Active 2018-06-17 Memoria LY, NOT 15:20:00 l ELSEWHERE [place] CLASSIFIED HEPATOMEGA LY, NOT ELSEWHERE CLASSIFIED Active Monserrat Velazquez Allergies, Adverse Reactions, Alerts Allergy Allergy Status Severity Reaction(s) Onset Inactive Treating Comm ents Source Name Type Date Date Clinician NO KNOWN Drug Active Univers ALLERGIE Class ity of S [facility] Social History Social Habit Start Date Stop Date Quantity Comments Source History of tobacco Cigarette Smoker University of use [facility] Exposure to Not sure University of SARS-CoV-2 (event) [facility] Cigarettes smoked 2021-03-15 2021-03-15 Univers ity of current (pack per 00:00:00 00:00:00 ) - Reported Branch Cigarette 2021-03-15 2021-03-15 University of pack-years 00:00:00 00:00:00 [facility] Tobacco use and 2021-03-15 2021-03-15 Never used Universit y of exposure 00:00:00 00:00:00 [facility] Alcohol intake 2021-03-15 2021-03-15 Current drinker Unive rsity of 00:00:00 00:00:00 of alcohol [facility] (finding) [place] Tobacco Comment 2019-04-22 2019-04-22 15 cigarettes Univer sity of 00:00:00 00:00:00 [facility] Social History 2018-06-06 2018-06-06 [facility] 04:59:00 04:59:00 [birth year] Universit y of 00:00:00 00:00:00 [facility] Smoking Status Start Date Stop Date Source Former smoker 2021-03-15 00:00:00 2021-03-15 00:00:00 Universi ty of [facility] Current every day 2019-11-25 00:00:00 [facility] smoker [facility] Medications Ordered Filled Start Stop Current Ordering Indication Dosage Frequency Signature Comments Components Source Medication Medication Date Date Medication? Clinician (SIG) Name Name iopamidol 2020-08- No [id number] 100mL 100 mL, Univers (ISOVUE 05-31 Intravenou ity o f 370-500 mL) 21:15: 19:40 s, ONCE, 1 [place] injection 00 :00 dose, On Medica l 100 mL [facility] 05/31/21 at 1615, Routine iopamidol 2020- No [id number] 100mL 100 mL, Univers (ISOVUE 01-17- Intravenou ity o f 370-500 mL) 19:30: 18:30 s, ONCE, 1 [place] injection 00 :00 dose, Wed Medic al 100 mL 01/17/21 at Branch 1430, Routine tc 2020- No 26.3mCi 26.3 Univers 99m-medrona 5-26 05-26 millicurie i ty of te 16:00: 16:00 , [place] (DRAXIMAGE 00 :00 Intravenou Med ical MDP-25) s, ONCE, 1 Branch injection dose, Tue 26.3 01/11/20 at millicurie 1115, Routine iohexol 2020-0 2020- No 130mL 130 mL, Unive rs (OMNIPAQUE 01-10 Intravenou it y of 350 15:30: 15:30 s, ONCE, 1 [place] BULK-150 00 :00 dose, Tue Medica l mL) 01/11/20 at Branch injection 1030, 130 mL Routine iohexol 2020-0 2020- No 120mL 120 mL, Unive rs (OMNIPAQUE 2-07 02-07 Intravenou it y of 350 20:30: 20:20 s, ONCE, 1 [place] BULK-150 00 :00 dose, Fri Medica l mL) 09/24/19 at Branch injection 1430, 120 mL Routine sofosbuvir- 2020-0 Yes 1{tbl} Take 1 Un johanna velpatasvir 2-03 tablet by ity of 400-100 mg 00:00: mouth [place] 00 daily. Medical Branch sofosbuvir- 2020-0 Yes 1{tbl} Take 1 Un johanna velpatasvir 2-03 tablet by ity of 400-100 mg 00:00: mouth [place] 00 daily. Medical Branch sofosbuvir- 2020-0 Yes 1{tbl} Take 1 Un johanna velpatasvir 2-03 tablet by ity of 400-100 mg 00:00: mouth [place] 00 daily. Medical Branch sofosbuvir- 2020-0 Yes 1{tbl} Take 1 Un johanna velpatasvir 2-03 tablet by ity of 400-100 mg 00:00: mouth [place] 00 daily. Medical Branch sofosbuvir- 2020-0 Yes 1{tbl} Take 1 Un johanna velpatasvir 2-03 tablet by ity of 400-100 mg 00:00: mouth [place] 00 daily. Medical Branch sofosbuvir- 2020-0 Yes 1{tbl} Take 1 Un johanna velpatasvir 2-03 tablet by ity of 400-100 mg 00:00: mouth [place] 00 daily. Medical Branch sofosbuvir- 2020-0 Yes 1{tbl} Take 1 Un johanna velpatasvir 2-03 tablet by ity of 400-100 mg 00:00: mouth [place] 00 daily. Medical Branch sofosbuvir- 2020-0 Yes 1{tbl} Take 1 Un johanna velpatasvir 2-03 tablet by ity of 400-100 mg 00:00: mouth [place] 00 daily. Medical Branch sofosbuvir- 2020-0 Yes 1{tbl} Take 1 Un johanna velpatasvir 2-03 tablet by ity of 400-100 mg 00:00: mouth [place] 00 daily. Medical Branch sofosbuvir- 2020-0 Yes 1{tbl} Take 1 Un johanna velpatasvir 2-03 tablet by ity of 400-100 mg 00:00: mouth [place] 00 daily. Medical Branch sofosbuvir- 2020-0 Yes 1{tbl} Take 1 Un johanna velpatasvir 2-03 tablet by ity of 400-100 mg 00:00: mouth [place] 00 daily. Medical Branch sofosbuvir- 2020-0 Yes 1{tbl} Take 1 Un johanna velpatasvir 2-03 tablet by ity of 400-100 mg 00:00: mouth [place] 00 daily. Medical Branch sofosbuvir- 2020-0 Yes 1{tbl} Take 1 Un johanna velpatasvir 2-03 tablet by ity of 400-100 mg 00:00: mouth [place] 00 daily. Medical Branch sofosbuvir- 2020-0 Yes 1{tbl} Take 1 Un johanna velpatasvir 2-03 tablet by ity of 400-100 mg 00:00: mouth [place] 00 daily. Medical Branch sofosbuvir- 2020-0 Yes 1{tbl} Take 1 Un johanna velpatasvir 2-03 tablet by ity of 400-100 mg 00:00: mouth [place] 00 daily. Medical Branch sofosbuvir- 2020-0 Yes 1{tbl} Take 1 Un johanna velpatasvir 2-03 tablet by ity of 400-100 mg 00:00: mouth [place] 00 daily. Medical Branch sofosbuvir- 2020-0 Yes 1{tbl} Take 1 Un johanna velpatasvir 2-03 tablet by ity of 400-100 mg 00:00: mouth [place] 00 daily. Medical Branch sofosbuvir- 2020-0 Yes 1{tbl} Take 1 Un johanna velpatasvir 2-03 tablet by ity of 400-100 mg 00:00: mouth [place] 00 daily. Medical Branch sofosbuvir- 2020-0 Yes 1{tbl} Take 1 Un johanna velpatasvir 2-03 tablet by ity of 400-100 mg 00:00: mouth [place] 00 daily. Medical Branch sofosbuvir- 2020-0 Yes 1{tbl} Take 1 Un johanna velpatasvir 2-03 tablet by ity of 400-100 mg 00:00: mouth [place] 00 daily. Medical Branch sofosbuvir- 2020-0 Yes 1{tbl} Take 1 Un johanna velpatasvir 2-03 tablet by ity of 400-100 mg 00:00: mouth [place] 00 daily. Medical Branch sofosbuvir- 2020-0 Yes 1{tbl} Take 1 Un johanna velpatasvir 2-03 tablet by ity of 400-100 mg 00:00: mouth [place] 00 daily. Medical Branch sofosbuvir- 2020-0 Yes 1{tbl} Take 1 Un johanna velpatasvir 2-03 tablet by ity of 400-100 mg 00:00: mouth [place] 00 daily. Medical Branch sofosbuvir- 2020-0 Yes 1{tbl} Take 1 Un johanna velpatasvir 2-03 tablet by ity of 400-100 mg 00:00: mouth [place] 00 daily. Medical Branch sofosbuvir- 2020-0 Yes 1{tbl} Take 1 Un johanna velpatasvir 2-03 tablet by ity of 400-100 mg 00:00: mouth [place] 00 daily. Medical Branch sofosbuvir- 2020-0 Yes 1{tbl} Take 1 Un johanna velpatasvir 2-03 tablet by ity of 400-100 mg 00:00: mouth [place] 00 daily. Medical Branch sofosbuvir- 2020-0 Yes 1{tbl} Take 1 Un johanna velpatasvir 2-03 tablet by ity of 400-100 mg 00:00: mouth [place] 00 daily. Medical Branch sofosbuvir- 2020-0 Yes 1{tbl} Take 1 Un johanna velpatasvir 2-03 tablet by ity of 400-100 mg 00:00: mouth [place] 00 daily. Medical Branch sofosbuvir- 2020-0 Yes 1{tbl} Take 1 Un johanna velpatasvir 2-03 tablet by ity of 400-100 mg 00:00: mouth [place] 00 daily. Medical Branch sofosbuvir- 2020-0 Yes 1{tbl} Take 1 Un johanna velpatasvir 2-03 tablet by ity of 400-100 mg 00:00: mouth [place] 00 daily. Medical Branch sofosbuvir- 2019-0 Yes 1{tbl} Take 1 Un johanna velpatasvir 2-03 tablet by ity of 400-100 mg 00:00: mouth [place] 00 daily. Medical Branch sofosbuvir- 2019-0 Yes 1{tbl} Take 1 Un johanna velpatasvir 2-03 tablet by ity of 400-100 mg 00:00: mouth [place] 00 daily. Medical Branch sofosbuvir- 2020-0 Yes 1{tbl} Take 1 Un johanna velpatasvir 2-03 tablet by ity of 400-100 mg 00:00: mouth [place] 00 daily. Medical Branch sofosbuvir- 2020-0 Yes 1{tbl} Take 1 Un johanna velpatasvir 2-03 tablet by ity of 400-100 mg 00:00: mouth [place] 00 daily. Medical Branch sofosbuvir- 2020-0 Yes 1{tbl} Take 1 Un johanna velpatasvir 2-03 tablet by ity of 400-100 mg 00:00: mouth [place] 00 daily. Medical Branch sofosbuvir- 2020-0 2020- No 1{tbl} Take 1 U nivers velpatasvir 2-03 -29 tablet by it y of 400-100 mg 00:00: 00:00 mouth [place] 00 :00 daily. Medical Branch sofosbuvir- 2020-0 2020- No 1{tbl} Take 1 U nivers velpatasvir 2-03 -29 tablet by it y of 400-100 mg 00:00: 00:00 mouth [place] 00 :00 daily. Medical Branch rifAMPin 2018- Yes [id number] 600mg Take 2 U nivers 300 mg 8-26 capsules ity of capsule 00:00: by mouth [place] 00 daily. [facility] rifAMPin Yes [id number] 600mg Take 2 U nivers 300 mg 8-26 capsules ity of capsule 00:00: by mouth [place] 00 daily. [facility] rifAMPin Yes [id number] 600mg Take 2 U nivers 300 mg 8-26 capsules ity of capsule 00:00: by mouth [place] 00 daily. [facility] rifAMPin 2019- No [id number] 600mg Take 2 Univers 300 mg 8- 09-05 capsules ity of capsule 00:00: 00:00 by mouth [place] 00 :00 daily. [facility] rifAMPin 2019- No [id number] 600mg Take 2 Univers 300 mg 8-26 -05 capsules ity of capsule 00:00: 00:00 by mouth [place] 00 :00 daily. [facility] iohexol 2019- No 120mL 120 mL, Unive rs (OMNIPAQUE 03-31 Intravenou it y of 350 16:00: 15:20 s, ONCE, 1 [place] BULK-150 00 :00 dose, [facility] Medica l mL) 03/31/19 at [place] injection 1100, 120 mL Routine iohexol 2019- No 25mL 25 mL, Univers (OMNIPAQUE 03-31 Oral, ity of 350 BULK) 13:40: 13:40 ONCE, 1 [place] 25 mL 00 :00 dose, Wed Medical 03/31/19 at Branch 0900, Routine rifAMPin 0 Yes [id number] 600mg Take 2 U nivers 300 mg 6-13 capsules ity of capsule 00:00: by mouth [place] 00 daily. [facility] rifAMPin Yes [id number] 600mg Take 2 U nivers 300 mg 6-13 capsules ity of capsule 00:00: by mouth [place] 00 daily. [facility] rifAMPin Yes [id number] 600mg Take 2 U nivers 300 mg 6-13 capsules ity of capsule 00:00: by mouth [place] 00 daily. [facility] rifAMPin Yes [id number] 600mg Take 2 U nivers 300 mg 6-13 capsules ity of capsule 00:00: by mouth [place] 00 daily. [facility] rifAMPin Yes [id number] 600mg Take 2 U nivers 300 mg 6-13 capsules ity of capsule 00:00: by mouth [place] 00 daily. Medical Branch rifAMPin 2019-0 Yes [id number] 600mg Take 2 U nivers 300 mg 6-13 capsules ity of capsule 00:00: by mouth [place] 00 daily. Medical Branch rifAMPin 2019-0 Yes [id number] 600mg Take 2 U nivers 300 mg 6-13 capsules ity of capsule 00:00: by mouth [place] 00 daily. Medical Branch rifAMPin 2019-0 Yes [id number] 600mg Take 2 U nivers 300 mg 6-13 capsules ity of capsule 00:00: by mouth [place] 00 daily. Medical Branch rifAMPin 2018-0 Yes [id number] 600mg Take 2 U nivers 300 mg 6-13 capsules ity of capsule 00:00: by mouth [place] 00 daily. Medical Branch rifAMPin 2018-0 Yes [id number] 600mg Take 2 U nivers 300 mg 6-13 capsules ity of capsule 00:00: by mouth [place] 00 daily. Medical Branch rifAMPin 2018-0 Yes [id number] 600mg Take 2 U nivers 300 mg 6-13 capsules ity of capsule 00:00: by mouth [place] 00 daily. Medical Branch rifAMPin 0 Yes [id number] 600mg Take 2 U nivers 300 mg 6-13 capsules ity of capsule 00:00: by mouth [place] 00 daily. Medical Branch rifAMPin 0 Yes [id number] 600mg Take 2 U nivers 300 mg 6-13 capsules ity of capsule 00:00: by mouth [place] 00 daily. Medical Branch rifAMPin 2019-0 Yes [id number] 600mg Take 2 U nivers 300 mg 6-13 capsules ity of capsule 00:00: by mouth [place] 00 daily. Medical Branch rifAMPin 0 2019- No [id number] 600mg Take 2 Univers 300 mg 6-13 08-26 capsules ity of capsule 00:00: 00:00 by mouth [place] 00 :00 daily. Medical Branch rifAMPin 0 2019- No [id number] 600mg Take 2 Univers 300 mg 6-13 08-26 capsules ity of capsule 00:00: 00:00 by mouth [place] 00 :00 daily. Medical Branch propranolol 2019-0 Yes [id number] 10mg Take 1 Univers 10 mg 4-15 tablet by ity of tablet 00:00: mouth 2 [place] 00 (two) Medical times Branch daily. propranolol 2019-0 Yes [id number] 10mg Take 1 Univers 10 mg 4-15 tablet by ity of tablet 00:00: mouth (two) Medical times Branch daily. propranolol 2019-0 Yes [id number] 10mg Take 1 Univers 10 mg 4-15 tablet by ity of tablet 00:00: mouth 2 (two) Medical times Branch daily. propranolol 2019-0 Yes [id number] 10mg Take 1 Univers 10 mg 4-15 tablet by ity of tablet 00:00: mouth (two) Medical times Branch daily. propranolol 2019-0 Yes [id number] 10mg Take 1 Univers 10 mg 4-15 tablet by ity of tablet 00:00: mouth (two) Medical times Branch daily. propranolol 2019-0 Yes [id number] 10mg Take 1 Univers 10 mg 4-15 tablet by ity of tablet 00:00: mouth (two) Medical times Branch daily. propranolol 2019-0 Yes [id number] 10mg Take 1 Univers 10 mg 4-15 tablet by ity of tablet 00:00: mouth (two) Medical times Branch daily. propranolol 2019-0 Yes [id number] 10mg Take 1 Univers 10 mg 4-15 tablet by ity of tablet 00:00: mouth (two) Medical times Branch daily. propranolol 2019-0 Yes [id number] 10mg Take 1 Univers 10 mg 4-15 tablet by ity of tablet 00:00: mouth (two) Medical times Branch daily. propranolol 2019-0 Yes [id number] 10mg Take 1 Univers 10 mg 4-15 tablet by ity of tablet 00:00: mouth (two) Medical times Branch daily. propranolol 2019-0 Yes [id number] 10mg Take 1 Univers 10 mg 4-15 tablet by ity of tablet 00:00: mouth (two) Medical times Branch daily. propranolol 2019-0 Yes [id number] 10mg Take 1 Univers 10 mg 4-15 tablet by ity of tablet 00:00: mouth (two) Medical times Branch daily. propranolol 2019-0 Yes [id number] 10mg Take 1 Univers 10 mg 4-15 tablet by ity of tablet 00:00: mouth 2 (two) Medical times Branch daily. propranolol 2019-0 Yes [id number] 10mg Take 1 Univers 10 mg 4-15 tablet by ity of tablet 00:00: mouth (two) Medical times Branch daily. propranolol 2019-0 Yes [id number] 10mg Take 1 Univers 10 mg 4-15 tablet by ity of tablet 00:00: mouth (two) Medical times Branch daily. propranolol 2019-0 Yes [id number] 10mg Take 1 Univers 10 mg 4-15 tablet by ity of tablet 00:00: mouth 2 (two) Medical times Branch daily. propranolol 2019-0 Yes [id number] 10mg Take 1 Univers 10 mg 4-15 tablet by ity of tablet 00:00: mouth (two) Medical times Branch daily. propranolol 2019-0 Yes [id number] 10mg Take 1 Univers 10 mg 4-15 tablet by ity of tablet 00:00: mouth (two) Medical times Branch daily. propranolol 2019-0 Yes [id number] 10mg Take 1 Univers 10 mg 4-15 tablet by ity of tablet 00:00: mouth (two) Medical times Branch daily. propranolol 2019-0 Yes [id number] 10mg Take 1 Univers 10 mg 4-15 tablet by ity of tablet 00:00: mouth (two) Medical times Branch daily. propranolol 2019-0 Yes [id number] 10mg Take 1 Univers 10 mg 4-15 tablet by ity of tablet 00:00: mouth (two) Medical times Branch daily. propranolol 2019-0 Yes [id number] 10mg Take 1 Univers 10 mg 4-15 tablet by ity of tablet 00:00: mouth (two) Medical times Branch daily. propranolol 2019-0 Yes [id number] 10mg Take 1 Univers 10 mg 4-15 tablet by ity of tablet 00:00: mouth (two) Medical times Branch daily. propranolol 2019-0 Yes [id number] 10mg Take 1 Univers 10 mg 4-15 tablet by ity of tablet 00:00: mouth (two) Medical times Branch daily. propranolol 2019-0 Yes [id number] 10mg Take 1 Univers 10 mg 4-15 tablet by ity of tablet 00:00: mouth 2 (two) Medical times Branch daily. propranolol 2019-0 Yes [id number] 10mg Take 1 Univers 10 mg 4-15 tablet by ity of tablet 00:00: mouth (two) Medical times Branch daily. propranolol 2019-0 Yes [id number] 10mg Take 1 Univers 10 mg 4-15 tablet by ity of tablet 00:00: mouth (two) Medical times Branch daily. propranolol 2019-0 Yes [id number] 10mg Take 1 Univers 10 mg 4-15 tablet by ity of tablet 00:00: mouth 2 (two) Medical times Branch daily. propranolol 2019-0 Yes [id number] 10mg Take 1 Univers 10 mg 4-15 tablet by ity of tablet 00:00: mouth (two) Medical times Branch daily. propranolol 2019-0 Yes [id number] 10mg Take 1 Univers 10 mg 4-15 tablet by ity of tablet 00:00: mouth (two) Medical times Branch daily. propranolol 2019-0 Yes [id number] 10mg Take 1 Univers 10 mg 4-15 tablet by ity of tablet 00:00: mouth (two) Medical times Branch daily. propranolol 2019-0 Yes [id number] 10mg Take 1 Univers 10 mg 4-15 tablet by ity of tablet 00:00: mouth (two) Medical times Branch daily. propranolol 2019-0 Yes [id number] 10mg Take 1 Univers 10 mg 4-15 tablet by ity of tablet 00:00: mouth (two) Medical times Branch daily. propranolol 2019-0 Yes [id number] 10mg Take 1 Univers 10 mg 4-15 tablet by ity of tablet 00:00: mouth (two) Medical times Branch daily. propranolol 2019-0 Yes [id number] 10mg Take 1 Univers 10 mg 4-15 tablet by ity of tablet 00:00: mouth (two) Medical times Branch daily. propranolol 2019-0 Yes [id number] 10mg Take 1 Univers 10 mg 4-15 tablet by ity of tablet 00:00: mouth (two) Medical times Branch daily. propranolol 2019-0 Yes [id number] 10mg Take 1 Univers 10 mg 4-15 tablet by ity of tablet 00:00: mouth (two) Medical times Branch daily. propranolol 2019-0 Yes [id number] 10mg Take 1 Univers 10 mg 4-15 tablet by ity of tablet 00:00: mouth 2 (two) Medical times Branch daily. propranolol 2019-0 Yes [id number] 10mg Take 1 Univers 10 mg 4-15 tablet by ity of tablet 00:00: mouth (two) Medical times Branch daily. propranolol 2019-0 Yes [id number] 10mg Take 1 Univers 10 mg 4-15 tablet by ity of tablet 00:00: mouth (two) Medical times Branch daily. propranolol 2019-0 Yes [id number] 10mg Take 1 Univers 10 mg 4-15 tablet by ity of tablet 00:00: mouth 2 (two) Medical times Branch daily. propranolol 2019-0 Yes [id number] 10mg Take 1 Univers 10 mg 4-15 tablet by ity of tablet 00:00: mouth (two) Medical times Branch daily. propranolol 2019-0 Yes [id number] 10mg Take 1 Univers 10 mg 4-15 tablet by ity of tablet 00:00: mouth (two) Medical times Branch daily. propranolol 2019-0 Yes [id number] 10mg Take 1 Univers 10 mg 4-15 tablet by ity of tablet 00:00: mouth (two) Medical times Branch daily. propranolol 2019-0 Yes [id number] 10mg Take 1 Univers 10 mg 4-15 tablet by ity of tablet 00:00: mouth (two) Medical times Branch daily. propranolol 2019-0 Yes [id number] 10mg Take 1 Univers 10 mg 4-15 tablet by ity of tablet 00:00: mouth (two) Medical times Branch daily. propranolol 2019-0 Yes [id number] 10mg Take 1 Univers 10 mg 4-15 tablet by ity of tablet 00:00: mouth (two) Medical times Branch daily. propranolol 2019-0 Yes [id number] 10mg Take 1 Univers 10 mg 4-15 tablet by ity of tablet 00:00: mouth (two) Medical times Branch daily. propranolol 2019-0 Yes [id number] 10mg Take 1 Univers 10 mg 4-15 tablet by ity of tablet 00:00: mouth (two) Medical times Branch daily. propranolol 2019-0 Yes [id number] 10mg Take 1 Univers 10 mg 4-15 tablet by ity of tablet 00:00: mouth 2 (two) Medical times Branch daily. propranolol 2019-0 Yes [id number] 10mg Take 1 Univers 10 mg 4-15 tablet by ity of tablet 00:00: mouth (two) Medical times Branch daily. propranolol 2019-0 Yes [id number] 10mg Take 1 Univers 10 mg 4-15 tablet by ity of tablet 00:00: mouth (two) Medical times Branch daily. propranolol 2019-0 Yes [id number] 10mg Take 1 Univers 10 mg 4-15 tablet by ity of tablet 00:00: mouth 2 (two) Medical times Branch daily. propranolol 2019-0 Yes [id number] 10mg Take 1 Univers 10 mg 4-15 tablet by ity of tablet 00:00: mouth (two) Medical times Branch daily. propranolol 2019-0 Yes [id number] 10mg Take 1 Univers 10 mg 4-15 tablet by ity of tablet 00:00: mouth (two) Medical times Branch daily. propranolol 2019-0 Yes [id number] 10mg Take 1 Univers 10 mg 4-15 tablet by ity of tablet 00:00: mouth (two) Medical times Branch daily. propranolol 2019-0 Yes [id number] 10mg Take 1 Univers 10 mg 4-15 tablet by ity of tablet 00:00: mouth (two) Medical times Branch daily. propranolol 2019-0 Yes [id number] 10mg Take 1 Univers 10 mg 4-15 tablet by ity of tablet 00:00: mouth (two) Medical times Branch daily. propranolol 2019-0 Yes [id number] 10mg Take 1 Univers 10 mg 4-15 tablet by ity of tablet 00:00: mouth (two) Medical times Branch daily. propranolol 2019-0 Yes [id number] 10mg Take 1 Univers 10 mg 4-15 tablet by ity of tablet 00:00: mouth (two) Medical times Branch daily. propranolol 2019-0 Yes [id number] 10mg Take 1 Univers 10 mg 4-15 tablet by ity of tablet 00:00: mouth (two) Medical times Branch daily. propranolol 2019-0 Yes [id number] 10mg Take 1 Univers 10 mg 4-15 tablet by ity of tablet 00:00: mouth (two) Medical times Branch daily. omeprazole 2017-08 Yes [id number] 40mg Take 1 U nivers 40 mg 2-10 capsule by ity of capsule 00:00: mouth [place] 00 daily. Medical Branch omeprazole 2017- Yes [id number] 40mg Take 1 U nivers 40 mg 2-10 capsule by ity of capsule 00:00: mouth [place] 00 daily. Medical Branch omeprazole 2017-08 Yes [id number] 40mg Take 1 U nivers 40 mg 2-10 capsule by ity of capsule 00:00: mouth [place] 00 daily. Medical Branch omeprazole 2017-08 Yes [id number] 40mg Take 1 U nivers 40 mg 2-10 capsule by ity of capsule 00:00: mouth [place] 00 daily. Medical Branch omeprazole 2017-08 Yes [id number] 40mg Take 1 U nivers 40 mg 2-10 capsule by ity of capsule 00:00: mouth [place] 00 daily. Medical Branch omeprazole 2017-08 Yes [id number] 40mg Take 1 U nivers 40 mg 2-10 capsule by ity of capsule 00:00: mouth [place] 00 daily. Medical Branch omeprazole 2017-08 Yes [id number] 40mg Take 1 U nivers 40 mg 2-10 capsule by ity of capsule 00:00: mouth [place] 00 daily. Medical Branch omeprazole 2017-08 Yes [id number] 40mg Take 1 U nivers 40 mg 2-10 capsule by ity of capsule 00:00: mouth [place] 00 daily. Medical Branch omeprazole 2017-08 Yes [id number] 40mg Take 1 U nivers 40 mg 2-10 capsule by ity of capsule 00:00: mouth [place] 00 daily. Medical Branch omeprazole 2017-08 Yes [id number] 40mg Take 1 U nivers 40 mg 2-10 capsule by ity of capsule 00:00: mouth [place] 00 daily. Medical Branch omeprazole 2017-08 Yes [id number] 40mg Take 1 U nivers 40 mg 2-10 capsule by [facility] capsule 00:00: mouth [place] 00 daily. [facility] omeprazole 2017-08 Yes [id number] 40mg Take 1 [facility] 40 mg 2-10 capsule by [facility] capsule 00:00: mouth [place] 00 daily. [facility] omeprazole 2017- Yes [id number] 40mg Take 1 [facility] 40 mg 2-10 capsule by [facility] of capsule 00:00: mouth [place] 00 daily. [facility] omeprazole 2017- Yes [id number] 40mg Take 1 [facility] 40 mg 2-10 capsule by [facility] of capsule 00:00: mouth [place] 00 daily. [facility] omeprazole 2017- Yes [id number] 40mg Take 1 [facility] 40 mg 2-10 capsule by [facility] capsule 00:00: mouth [place] 00 daily. [facility] omeprazole 2017- Yes [id number] 40mg Take 1 [facility] 40 mg 2-10 capsule by [facility] capsule 00:00: mouth [place] 00 daily. [facility] omeprazole 2017- Yes [id number] 40mg Take 1 [facility] 40 mg 2-10 capsule by [facility] of capsule 00:00: mouth [place] 00 daily. [facility] omeprazole 2017- Yes [id number] 40mg Take 1 [facility] 40 mg 2-10 capsule by [facility] capsule 00:00: mouth [place] 00 daily. [facility] omeprazole 2017-08 Yes [id number] 40mg Take 1 [facility] 40 mg 2-10 capsule by [facility] capsule 00:00: mouth [place] 00 daily. [facility] omeprazole 2017-08 Yes [id number] 40mg Take 1 [facility] 40 mg 2-10 capsule by [facility] capsule 00:00: mouth [place] 00 daily. [facility] omeprazole 2017- Yes [id number] 40mg Take 1 [facility] 40 mg 2-10 capsule by [facility] capsule 00:00: mouth [place] 00 daily. [facility] omeprazole 2017-08 Yes [id number] 40mg Take 1 [facility] 40 mg 2-10 capsule by [facility] capsule 00:00: mouth [place] 00 daily. [facility] omeprazole 2017- Yes [id number] 40mg Take 1 [facility] 40 mg 2-10 capsule by [facility] capsule 00:00: mouth [place] 00 daily. [facility] omeprazole 2017- Yes [id number] 40mg Take 1 [facility] 40 mg 2-10 capsule by [facility] capsule 00:00: mouth [place] 00 daily. [facility] omeprazole 2017- Yes [id number] 40mg Take 1 [facility] 40 mg 2-10 capsule by [facility] capsule 00:00: mouth [place] 00 daily. [facility] omeprazole 2017- Yes [id number] 40mg Take 1 [facility] 40 mg 2-10 capsule by [facility] capsule 00:00: mouth [place] 00 daily. [facility] omeprazole 2017- Yes [id number] 40mg Take 1 [facility] 40 mg 2-10 capsule by [facility] capsule 00:00: mouth [place] 00 daily. [facility] omeprazole 2017- Yes [id number] 40mg Take 1 [facility] 40 mg 2-10 capsule by [facility] capsule 00:00: mouth [place] 00 daily. [facility] omeprazole 2017-08 Yes [id number] 40mg Take 1 [facility] 40 mg 2-10 capsule by [facility] capsule 00:00: mouth [place] 00 daily. [facility] omeprazole 2017-08 Yes [id number] 40mg Take 1 [facility] 40 mg 2-10 capsule by [facility] of capsule 00:00: mouth [place] 00 daily. [facility] omeprazole 2017- Yes [id number] 40mg Take 1 [facility] 40 mg 2-10 capsule by [facility] capsule 00:00: mouth [place] 00 daily. [facility] omeprazole 2017-08 Yes [id number] 40mg Take 1 [facility] 40 mg 2-10 capsule by [facility] of capsule 00:00: mouth [place] 00 daily. [facility] omeprazole 2017-08 Yes [id number] 40mg Take 1 [facility] 40 mg 2-10 capsule by [facility] capsule 00:00: mouth [place] 00 daily. [facility] omeprazole 2017-08 Yes [id number] 40mg Take 1 [facility] 40 mg 2-10 capsule by [facility] capsule 00:00: mouth [place] 00 daily. [facility] omeprazole 2017-08 Yes [id number] 40mg Take 1 [facility] 40 mg 2-10 capsule by [facility] capsule 00:00: mouth [place] 00 daily. [facility] omeprazole 2017-08 Yes [id number] 40mg Take 1 [facility] 40 mg 2-10 capsule by [facility] of capsule 00:00: mouth [place] 00 daily. [facility] omeprazole 2017-08 Yes [id number] 40mg Take 1 [facility] 40 mg 2-10 capsule by [facility] capsule 00:00: mouth [place] 00 daily. [facility] omeprazole 2017- Yes [id number] 40mg Take 1 [facility] 40 mg 2-10 capsule by [facility] of capsule 00:00: mouth [place] 00 daily. [facility] omeprazole 2017- Yes [id number] 40mg Take 1 [facility] 40 mg 2-10 capsule by [facility] of capsule 00:00: mouth [place] 00 daily. [facility] omeprazole 2017- Yes [id number] 40mg Take 1 [facility] 40 mg 2-10 capsule by [facility] of capsule 00:00: mouth [place] 00 daily. [facility] omeprazole 2017- Yes [id number] 40mg Take 1 [facility] 40 mg 2-10 capsule by [facility] of capsule 00:00: mouth [place] 00 daily. [facility] omeprazole 2017-08 Yes [id number] 40mg Take 1 [facility] 40 mg 2-10 capsule by [facility] of capsule 00:00: mouth [place] 00 daily. [facility] omeprazole 2017-08 Yes [id number] 40mg Take 1 [facility] 40 mg 2-10 capsule by [facility] capsule 00:00: mouth [place] 00 daily. [facility] omeprazole 2017-08 Yes [id number] 40mg Take 1 [facility] 40 mg 2-10 capsule by [facility] of capsule 00:00: mouth [place] 00 daily. [facility] omeprazole 2017-08 Yes [id number] 40mg Take 1 [facility] 40 mg 2-10 capsule by [facility] of capsule 00:00: mouth [place] 00 daily. [facility] omeprazole 2017-08 Yes [id number] 40mg Take 1 [facility] 40 mg 2-10 capsule by [facility] of capsule 00:00: mouth [place] 00 daily. [facility] omeprazole 2017-08 Yes [id number] 40mg Take 1 [facility] 40 mg 2-10 capsule by [facility] capsule 00:00: mouth [place] 00 daily. [facility] omeprazole 2017-08 Yes [id number] 40mg Take 1 [facility] 40 mg 2-10 capsule by [facility] of capsule 00:00: mouth [place] 00 daily. [facility] omeprazole 2017-08 Yes [id number] 40mg Take 1 [facility] 40 mg 2-10 capsule by [facility] of capsule 00:00: mouth [place] 00 daily. [facility] omeprazole 2017-08 Yes [id number] 40mg Take 1 [facility] 40 mg 2-10 capsule by [facility] of capsule 00:00: mouth [place] 00 daily. [facility] omeprazole 2017-08 Yes [id number] 40mg Take 1 [facility] 40 mg 2-10 capsule by [facility] of capsule 00:00: mouth [place] 00 daily. [facility] omeprazole 2017-08 Yes [id number] 40mg Take 1 [facility] 40 mg 2-10 capsule by [facility] of capsule 00:00: mouth [place] 00 daily. [facility] omeprazole 2017-08 Yes [id number] 40mg Take 1 [facility] 40 mg 2-10 capsule by [facility] of capsule 00:00: mouth [place] 00 daily. [facility] omeprazole 2017-08 Yes [id number] 40mg Take 1 [facility] 40 mg 2-10 capsule by [facility] of capsule 00:00: mouth [place] 00 daily. [facility] omeprazole 2017-08 Yes [id number] 40mg Take 1 [facility] 40 mg 2-10 capsule by [facility] of capsule 00:00: mouth [place] 00 daily. [facility] omeprazole 2017-08 Yes [id number] 40mg Take 1 [facility] 40 mg 2-10 capsule by [facility] of capsule 00:00: mouth [place] 00 daily. [facility] omeprazole 2017-08 Yes [id number] 40mg Take 1 [facility] 40 mg 2-10 capsule by [facility] of capsule 00:00: mouth [place] 00 daily. [facility] omeprazole 2017-08 Yes [id number] 40mg Take 1 [facility] 40 mg 2-10 capsule by [facility] of capsule 00:00: mouth [place] 00 daily. [facility] omeprazole 2017-08 Yes [id number] 40mg Take 1 [facility] 40 mg 2-10 capsule by [facility] of capsule 00:00: mouth [place] 00 daily. [facility] omeprazole 2017-08 Yes [id number] 40mg Take 1 [facility] 40 mg 2-10 capsule by [facility] of capsule 00:00: mouth [place] 00 daily. [facility] omeprazole 2017-08 Yes [id number] 40mg Take 1 [facility] 40 mg 2-10 capsule by [facility] of capsule 00:00: mouth [place] 00 daily. [facility] omeprazole 2017-08 Yes [id number] 40mg Take 1 [facility] 40 mg 2-10 capsule by [facility] of capsule 00:00: mouth [place] 00 daily. [facility] Immunizations Ordered Filled Immunization Date Status Comments [facility] e Immunization Name Name Twinrix (hep a/hep 2019-12-14 Completed [facility] sity of b) 00:00:00 [facility] Twinrix (hep a/hep 2019-12-14 Completed [facility] sity of b) 00:00:00 [facility] Twinrix (hep a/hep 2019-12-14 Completed [facility] sity of b) 00:00:00 [facility] Twinrix (hep a/hep 2019-12-14 Completed [facility] sity of b) 00:00:00 [facility] Twinrix (hep a/hep 2019-12-14 Completed [facility] sity of b) 00:00:00 [facility] Twinrix (hep a/hep 2019-12-14 Completed [facility] sity of b) 00:00:00 [facility] Twinrix (hep a/hep 2019-12-14 Completed Univer sity of b) 00:00:00 [place] [facility] Twinrix (hep a/hep 2019-12-14 Completed [facility]iver sity of b) 00:00:00 [place] [facility] Twinrix (hep a/hep 2019-12-14 Completed Univer sity of b) 00:00:00 [place] [facility] Twinrix (hep a/hep 2019-12-14 Completed Univer sity of b) 00:00:00 [place] [facility] Twinrix (hep a/hep 2019-12-14 Completed Univer sity of b) 00:00:00 [facility] Twinrix (hep a/hep 2019-12-14 Completed [facility] sity of b) 00:00:00 [facility] Twinrix (hep a/hep 2019-12-14 Completed Univer sity of b) 00:00:00 [facility] Twinrix (hep a/hep 2019-12-14 Completed [facility]iver sity of b) 00:00:00 [facility] Twinrix (hep a/hep 2019-12-14 Completed [facility]iver sity of b) 00:00:00 [facility] Twinrix (hep a/hep 2019-12-14 Completed Univer sity of b) 00:00:00 [facility] Twinrix (hep a/hep 2019-12-14 Completed Univer sity of b) 00:00:00 [place] [facility] Twinrix (hep a/hep 2019-12-14 Completed Univer sity of b) 00:00:00 [place] [facility] Twinrix (hep a/hep 2019-12-14 Completed Univer sity of b) 00:00:00 [place] [facility] Twinrix (hep a/hep 2019-12-14 Completed Univer sity of b) 00:00:00 [place] [facility] Twinrix (hep a/hep 2019-12-14 Completed Univer sity of b) 00:00:00 [place] [facility] Twinrix (hep a/hep 2019-12-14 Completed Univer sity of b) 00:00:00 [facility] Twinrix (hep a/hep 2019-12-14 Completed Univer sity of b) 00:00:00 [place] [facility] Twinrix (hep a/hep 2019-12-14 Completed Univer sity of b) 00:00:00 [facility] Twinrix (hep a/hep 2019-12-14 Completed Univer sity of b) 00:00:00 [facility] Twinrix (hep a/hep 2019-12-14 Completed Univer sity of b) 00:00:00 [facility] Twinrix (hep a/hep 2019-12-14 Completed Univer sity of b) 00:00:00 [facility] Twinrix (hep a/hep 2019-12-14 Completed Univer sity of b) 00:00:00 [facility] Twinrix (hep a/hep 2019-12-14 Completed Univer sity of b) 00:00:00 [facility] Twinrix (hep a/hep 2019-12-14 Completed Univer sity of b) 00:00:00 [facility] Twinrix (hep a/hep 2019-12-14 Completed Univer sity of b) 00:00:00 [facility] Twinrix (hep a/hep 2019-12-14 Completed Univer sity of b) 00:00:00 [facility] Twinrix (hep a/hep 2019-12-14 Completed Univer sity of b) 00:00:00 [facility] Zoster Vaccine 2019-05-27 Completed [facility] of Recombinant 00:00:00 [facility] Hepatitis A Adult 2019-05-27 Completed Univers ity of 00:00:00 [facility] HEPLISAV HEP B, 2019-05-27 Completed Universit y of ADULT 2 DOSE, IM 00:00:00 [facility] Zoster Vaccine 2019-05-27 Completed [facility] of Recombinant 00:00:00 [facility] Hepatitis A Adult 2019-05-27 Completed Univers ity of 00:00:00 [facility] HEPLISAV HEP B, 2019-05-27 Completed Universit y of ADULT 2 DOSE, IM 00:00:00 [facility] Zoster Vaccine 2019-05-27 Completed [facility] of Recombinant 00:00:00 [facility] Hepatitis A Adult 2019-05-27 Completed Univers ity of 00:00:00 [facility] HEPLISAV HEP B, 2019-05-27 Completed Universit y of ADULT 2 DOSE, IM 00:00:00 [facility] Zoster Vaccine 2019-05-27 Completed [facility] of Recombinant 00:00:00 [facility] Hepatitis A Adult 2019-05-27 Completed Univers ity of 00:00:00 [facility] HEPLISAV HEP B, 2019-05-27 Completed Universit y of ADULT 2 DOSE, IM 00:00:00 [facility] Zoster Vaccine 2019-05-27 Completed [facility] of Recombinant 00:00:00 [facility] Hepatitis A Adult 2019-05-27 Completed Univers ity of 00:00:00 [facility] HEPLISAV HEP B, 2019-05-27 Completed Universit y of ADULT 2 DOSE, IM 00:00:00 [facility] Zoster Vaccine 2019-05-27 Completed [facility] of Recombinant 00:00:00 [facility] Hepatitis A Adult 2019-05-27 Completed Univers ity of 00:00:00 [facility] HEPLISAV HEP B, 2019-05-27 Completed Universit y of ADULT 2 DOSE, IM 00:00:00 [facility] Zoster Vaccine 2019-05-27 Completed [facility] of Recombinant 00:00:00 [facility] Hepatitis A Adult 2019-05-27 Completed [facility] ity of 00:00:00 [facility] HEPLISAV HEP B, 2019-05-27 Completed Universit y of ADULT 2 DOSE, IM 00:00:00 [facility] Zoster Vaccine 2019-05-27 Completed [facility] of Recombinant 00:00:00 [facility] Hepatitis A Adult 2019-05-27 Completed [facility] ity of 00:00:00 [facility] HEPLISAV HEP B, 2019-05-27 Completed Universit y of ADULT 2 DOSE, IM 00:00:00 [facility] Zoster Vaccine 2019-05-27 Completed [facility] of Recombinant 00:00:00 [facility] Hepatitis A Adult 2019-05-27 Completed [facility]y of 00:00:00 [facility] HEPLISAV HEP B, 2019-05-27 Completed Universit y of ADULT 2 DOSE, IM 00:00:00 [facility] Zoster Vaccine 2019-05-27 Completed [facility] of Recombinant 00:00:00 [facility] Hepatitis A Adult 2019-05-27 Completed Univers ity of 00:00:00 [facility] HEPLISAV HEP B, 2019-05-27 Completed Universit y of ADULT 2 DOSE, IM 00:00:00 [facility] Zoster Vaccine 2019-05-27 Completed [facility] of Recombinant 00:00:00 [facility] Hepatitis A Adult 2019-05-27 Completed Univers ity of 00:00:00 [facility] HEPLISAV HEP B, 2019-05-27 Completed Universit y of ADULT 2 DOSE, IM 00:00:00 [facility] Zoster Vaccine 2019-05-27 Completed [facility] of Recombinant 00:00:00 [facility] Hepatitis A Adult 2019-05-27 Completed Univers ity of 00:00:00 [facility] HEPLISAV HEP B, 2019-05-27 Completed Universit y of ADULT 2 DOSE, IM 00:00:00 [facility] Zoster Vaccine 2019-05-27 Completed [facility] of Recombinant 00:00:00 [facility] Hepatitis A Adult 2019-05-27 Completed [facility]y of 00:00:00 [facility] HEPLISAV HEP B, 2019-05-27 Completed Universit y of ADULT 2 DOSE, IM 00:00:00 [facility] Zoster Vaccine 2019-05-27 Completed [facility] Recombinant 00:00:00 [facility] Hepatitis A Adult 2019-05-27 Completed Univers ity of 00:00:00 [facility] HEPLISAV HEP B, 2019-05-27 Completed [facility] y of ADULT 2 DOSE, IM 00:00:00 [facility] Zoster Vaccine 2019-05-27 Completed [facility] of Recombinant 00:00:00 [facility] Hepatitis A Adult 2019-05-27 Completed Univers [facility]y of 00:00:00 [facility] HEPLISAV HEP B, 2019-05-27 Completed Univers[facility] y of ADULT 2 DOSE, IM 00:00:00 [facility] Zoster Vaccine 2019-05-27 Completed [facility] of Recombinant 00:00:00 [facility] Hepatitis A Adult 2019-05-27 Completed [facility]y of 00:00:00 [facility] HEPLISAV HEP B, 2019-05-27 Completed [facility] y of ADULT 2 DOSE, IM 00:00:00 [facility] Zoster Vaccine 2019-05-27 Completed [facility] of Recombinant 00:00:00 [facility] Hepatitis A Adult 2019-05-27 Completed Univers ity of 00:00:00 [facility] HEPLISAV HEP B, 2019-05-27 Completed [facility] y of ADULT 2 DOSE, IM 00:00:00 [facility] Zoster Vaccine 2019-05-27 Completed [facility] of Recombinant 00:00:00 [facility] Hepatitis A Adult 2019-05-27 Completed [facility]y of 00:00:00 [facility] HEPLISAV HEP B, 2019-05-27 Completed [facility] y of ADULT 2 DOSE, IM 00:00:00 [facility] Zoster Vaccine 2019-05-27 Completed [facility] of Recombinant 00:00:00 [facility] Hepatitis A Adult 2019-05-27 Completed Univers [facility]y of 00:00:00 [facility] HEPLISAV HEP B, 2019-05-27 Completed [facility] y of ADULT 2 DOSE, IM 00:00:00 [facility] Zoster Vaccine 2019-05-27 Completed [facility] of Recombinant 00:00:00 [facility] Hepatitis A Adult 2019-05-27 Completed [facility]y of 00:00:00 [facility] HEPLISAV HEP B, 2019-05-27 Completed [facility] y of ADULT 2 DOSE, IM 00:00:00 [facility] Zoster Vaccine 2019-05-27 Completed [facility] of Recombinant 00:00:00 [facility] Hepatitis A Adult 2019-05-27 Completed [facility]y of 00:00:00 [facility] HEPLISAV HEP B, 2019-05-27 Completed [facility] y of ADULT 2 DOSE, IM 00:00:00 [facility] Zoster Vaccine 2019-05-27 Completed [facility] of Recombinant 00:00:00 [facility] Hepatitis A Adult 2019-05-27 Completed [facility]y of 00:00:00 [facility] HEPLISAV HEP B, 2019-05-27 Completed [facility] y of ADULT 2 DOSE, IM 00:00:00 [facility] Zoster Vaccine 2019-05-27 Completed [facility] of Recombinant 00:00:00 [facility] Hepatitis A Adult 2019-05-27 Completed [facility]y of 00:00:00 [facility] HEPLISAV HEP B, 2019-05-27 Completed [facility] y of ADULT 2 DOSE, IM 00:00:00 [facility] Zoster Vaccine 2019-05-27 Completed [facility] Recombinant 00:00:00 [facility] Hepatitis A Adult 2019-05-27 Completed [facility]y of 00:00:00 [facility] HEPLISAV HEP B, 2019-05-27 Completed [facility] y of ADULT 2 DOSE, IM 00:00:00 [facility] Zoster Vaccine 2019-05-27 Completed [facility] Recombinant 00:00:00 [facility] Hepatitis A Adult 2019-05-27 Completed [facility] of 00:00:00 [facility] HEPLISAV HEP B, 2019-05-27 Completed [facility] y of ADULT 2 DOSE, IM 00:00:00 [facility] Zoster Vaccine 2019-05-27 Completed [facility] Recombinant 00:00:00 [facility] Hepatitis A Adult 2019-05-27 Completed [facility]y of 00:00:00 [facility] HEPLISAV HEP B, 2019-05-27 Completed [facility] y of ADULT 2 DOSE, IM 00:00:00 [facility] Zoster Vaccine 2019-05-27 Completed [facility] of Recombinant 00:00:00 [facility] Hepatitis A Adult 2019-05-27 Completed [facility] of 00:00:00 [facility] HEPLISAV HEP B, 2019-05-27 Completed [facility] y of ADULT 2 DOSE, IM 00:00:00 [facility] Zoster Vaccine 2019-05-27 Completed [facility] of Recombinant 00:00:00 [facility] Hepatitis A Adult 2019-05-27 Completed [facility]y of 00:00:00 [facility] HEPLISAV HEP B, 2019-05-27 Completed [facility] y of ADULT 2 DOSE, IM 00:00:00 [facility] Zoster Vaccine 2019-05-27 Completed [facility] of Recombinant 00:00:00 [facility] Hepatitis A Adult 2019-05-27 Completed [facility] of 00:00:00 [facility] HEPLISAV HEP B, 2019-05-27 Completed [facility] y of ADULT 2 DOSE, IM 00:00:00 [facility] Zoster Vaccine 2019-05-27 Completed [facility] of Recombinant 00:00:00 [facility] Hepatitis A Adult 2019-05-27 Completed [facility]y of 00:00:00 [facility] HEPLISAV HEP B, 2019-05-27 Completed [facility] y of ADULT 2 DOSE, IM 00:00:00 [facility] Zoster Vaccine 2019-05-27 Completed [facility] of Recombinant 00:00:00 [facility] Hepatitis A Adult 2019-05-27 Completed [facility]y of 00:00:00 [facility] HEPLISAV HEP B, 2019-05-27 Completed [facility] y of ADULT 2 DOSE, IM 00:00:00 [facility] Zoster Vaccine 2019-05-27 Completed [facility] of Recombinant 00:00:00 [facility] Hepatitis A Adult 2019-05-27 Completed [facility] of 00:00:00 [facility] HEPLISAV HEP B, 2019-05-27 Completed [facility] y of ADULT 2 DOSE, IM 00:00:00 [facility] Zoster Vaccine 2019-05-27 Completed [facility] of Recombinant 00:00:00 [facility] Hepatitis A Adult 2019-05-27 Completed [facility] of 00:00:00 [facility] HEPLISAV HEP B, 2019-05-27 Completed [facility] y of ADULT 2 DOSE, IM 00:00:00 [facility] Zoster Vaccine 2019-05-27 Completed [facility] of Recombinant 00:00:00 [facility] Hepatitis A Adult 2019-05-27 Completed [facility] of 00:00:00 [facility] HEPLISAV HEP B, 2019-05-27 Completed [facility] y of ADULT 2 DOSE, IM 00:00:00 [facility] Zoster Vaccine 2019-05-27 Completed [facility] of Recombinant 00:00:00 [facility] Hepatitis A Adult 2019-05-27 Completed [facility] of 00:00:00 [facility] HEPLISAV HEP B, 2019-05-27 Completed [facility] y of ADULT 2 DOSE, IM 00:00:00 [facility] Zoster Vaccine 2019-05-27 Completed [facility] of Recombinant 00:00:00 [facility] Hepatitis A Adult 2019-05-27 Completed [facility] of 00:00:00 [facility] HEPLISAV HEP B, 2019-05-27 Completed [facility] y of ADULT 2 DOSE, IM 00:00:00 [facility] Zoster Vaccine 2019-05-27 Completed [facility] of Recombinant 00:00:00 [facility] Hepatitis A Adult 2019-05-27 Completed [facility] of 00:00:00 [facility] HEPLISAV HEP B, 2019-05-27 Completed [facility] y of ADULT 2 DOSE, IM 00:00:00 [facility] Zoster Vaccine 2019-05-27 Completed [facility] of Recombinant 00:00:00 [facility] Hepatitis A Adult 2019-05-27 Completed [facility] of 00:00:00 [facility] HEPLISAV HEP B, 2019-05-27 Completed [facility] y of ADULT 2 DOSE, IM 00:00:00 [facility] Zoster Vaccine 2019-05-27 Completed [facility] of Recombinant 00:00:00 [facility] Hepatitis A Adult 2019-05-27 Completed [facility] of 00:00:00 [facility] HEPLISAV HEP B, 2019-05-27 Completed [facility] y of ADULT 2 DOSE, IM 00:00:00 [facility] Zoster Vaccine 2019-05-27 Completed [facility] of Recombinant 00:00:00 [facility] Hepatitis A Adult 2019-05-27 Completed [facility] of 00:00:00 [facility] HEPLISAV HEP B, 2019-05-27 Completed [facility] y of ADULT 2 DOSE, IM 00:00:00 [facility] Zoster Vaccine 2019-05-27 Completed [facility] of Recombinant 00:00:00 [facility] Hepatitis A Adult 2019-05-27 Completed [facility] of 00:00:00 [facility] HEPLISAV HEP B, 2019-05-27 Completed [facility] of ADULT 2 DOSE, IM 00:00:00 [facility] Zoster Vaccine 2019-05-27 Completed [facility] of Recombinant 00:00:00 [facility] Hepatitis A Adult 2019-05-27 Completed [facility] of 00:00:00 [facility] HEPLISAV HEP B, 2019-05-27 Completed [facility] of ADULT 2 DOSE, IM 00:00:00 [facility] Zoster Vaccine 2019-05-27 Completed [facility] of Recombinant 00:00:00 [facility] Hepatitis A Adult 2019-05-27 Completed [facility] of 00:00:00 [facility] HEPLISAV HEP B, 2019-05-27 Completed [facility] of ADULT 2 DOSE, IM 00:00:00 [facility] Zoster Vaccine 2019-05-27 Completed [facility] Recombinant 00:00:00 [facility] Hepatitis A Adult 2019-05-27 Completed [facility] of 00:00:00 [facility] HEPLISAV HEP B, 2019-05-27 Completed [facility] of ADULT 2 DOSE, IM 00:00:00 [facility] Zoster Vaccine 2019-05-27 Completed [facility] Recombinant 00:00:00 [facility] Hepatitis A Adult 2019-05-27 Completed [facility] 00:00:00 [facility] HEPLISAV HEP B, 2019-05-27 Completed [facility] ADULT 2 DOSE, IM 00:[facility]00 [facility] [place] Zoster Vaccine 2019-05-27 Completed [facility] Recombinant 00:00:00 [facility] Hepatitis A Adult 2019-05-27 Completed [facility] 00:00:00 [facility] HEPLISAV HEP B, 2019-05-27 Completed [facility] ADULT 2 DOSE, IM 00:00:00 [facility] [place] Zoster Vaccine 2019-05-27 Completed [facility] Recombinant 00:00:00 [facility] Hepatitis A Adult 2019-05-27 Completed [facility] 00:00:00 [facility] HEPLISAV HEP B, 2019-05-27 Completed [facility] ADULT 2 DOSE, IM 00:00:00 [facility] [place] Zoster Vaccine 2019-05-27 Completed [facility] Recombinant 00:00:00 [facility] Hepatitis A Adult 2019-05-27 Completed [facility] 00:00:00 [facility] HEPLISAV HEP B, 2019-05-27 Completed [facility] ADULT 2 DOSE, IM 00:00:00 [facility] [place] Zoster Vaccine 2019-05-27 Completed [facility] Recombinant 00:00:00 [facility] Hepatitis A Adult 2019-05-27 Completed [facility] 00:00:00 [facility] HEPLISAV HEP B, 2019-05-27 Completed [facility] ADULT 2 DOSE, IM 00:00:00 [facility] [place] Influenza High Dose 2019-05-14 Completed [facility] rs[facility] of 00:00:00 [facility] Influenza High Dose 2019-05-14 Completed [facility] of 00:00:00 [facility] Influenza High Dose 2019-05-14 Completed [facility] of 00:00:00 [facility] Influenza High Dose 2019-05-14 Completed [facility] of 00:00:00 [facility] Influenza High Dose 2019-05-14 Completed [facility] of 00:00:00 [facility] Influenza High Dose 2019-05-14 Completed [facility] of 00:00:00 [facility] Influenza High Dose 2019-05-14 Completed [facility] of 00:00:00 [facility] Influenza High Dose 2019-05-14 Completed [facility] of 00:00:00 [facility] Influenza High Dose 2019-05-14 Completed [facility] of 00:00:00 [facility] Influenza High Dose 2019-05-14 Completed [facility] of 00:00:00 [facility] Influenza High Dose 2019-05-14 Completed [facility] of 00:00:00 [facility] Influenza High Dose 2019-05-14 Completed [facility] of 00:00:00 [facility] Influenza High Dose 2019-05-14 Completed [facility] of 00:00:00 [facility] Influenza High Dose 2019-05-14 Completed [facility] rs[facility] of 00:00:00 [facility] Influenza High Dose 2019-05-14 Completed [facility] rs[facility] of 00:00:00 [facility] Influenza High Dose 2019-05-14 Completed [facility] rs[facility] of 00:00:00 [facility] Influenza High Dose 2019-05-14 Completed [facility] of 00:00:00 [facility] Influenza High Dose 2019-05-14 Completed [facility] rs[facility] of 00:00:00 [facility] Influenza High Dose 2019-05-14 Completed [facility] rs[facility] of 00:00:00 [facility] Influenza High Dose 2019-05-14 Completed [facility] rs[facility] of 00:00:00 [facility] Influenza High Dose 2019-05-14 Completed [facility] rs[facility] of 00:00:00 [facility] Influenza High Dose 2019-05-14 Completed [facility] rs[facility] of 00:00:00 [facility] Influenza High Dose 2019-05-14 Completed [facility] rs[facility] of 00:00:00 [facility] Influenza High Dose 2019-05-14 Completed [facility] rs[facility] of 00:00:00 [facility] Influenza High Dose 2019-05-14 Completed [facility] rs[facility] of 00:00:00 [facility] Influenza High Dose 2019-05-14 Completed [facility] rsity of 00:00:00 [facility] Influenza High Dose 2019-05-14 Completed [facility] rsity of 00:00:00 [facility] Influenza High Dose 2019-05-14 Completed [facility] rsity of 00:00:00 [facility] Influenza High Dose 2019-05-14 Completed [facility] rsity of 00:00:00 [facility] Influenza High Dose 2019-05-14 Completed [facility] rsity of 00:00:00 [facility] Influenza High Dose 2019-05-14 Completed [facility] rs[facility] of 00:00:00 [facility] Influenza High Dose 2019-05-14 Completed [facility] rsity of 00:00:00 [facility] Influenza High Dose 2019-05-14 Completed [facility] rsity of 00:00:00 [facility] Influenza High Dose 2019-05-14 Completed [facility] rsity of 00:00:00 [facility] Influenza High Dose 2019-05-14 Completed [facility] rsity of 00:00:00 [facility] Influenza High Dose 2019-05-14 Completed [facility] rsity of 00:00:00 [facility] Influenza High Dose 2019-05-14 Completed [facility] rsity of 00:00:00 [facility] Influenza High Dose 2019-05-14 Completed [facility] rsity of 00:00:00 [facility] Influenza High Dose 2019-05-14 Completed [facility] rsity of 00:00:00 [facility] Influenza High Dose 2019-05-14 Completed [facility] rsity of 00:00:00 [facility] Influenza High Dose 2019-05-14 Completed [facility] rsity of 00:00:00 [facility] Influenza High Dose 2019-05-14 Completed [facility] rsity of 00:00:00 [facility] Influenza High Dose 2019-05-14 Completed [facility] rsity of 00:00:00 [facility] Influenza High Dose 2019-05-14 Completed [facility] rsity of 00:00:00 [facility] Influenza High Dose 2019-05-14 Completed [facility] rsity of 00:00:00 [facility] Influenza High Dose 2019-05-14 Completed [facility] rsity of 00:00:00 [facility] Influenza High Dose 2019-05-14 Completed [facility] rsity of 00:00:00 [facility] Influenza High Dose 2019-05-14 Completed [facility] rsity of 00:00:00 [facility] Influenza High Dose 2019-05-14 Completed [facility] rsity of 00:00:00 [facility] Pneumococcal 2019-04-22 Completed [facility] Polysaccharide, 00:00:00 [place] [facility] PPSV23 (PNEUMOVAX) [facility] Zoster Vaccine 2019-04-22 Completed [facility] Recombinant 00:00:00 [facility] TDAP (ADACEL) 2019-04-22 Completed [facility] VACCINE 00:00:00 [facility] HEP B, Adult Dosage 2019-04-22 Completed [facility]ive rsity of 00:00:00 [facility] Pneumococcal 2019-04-22 Completed [facility] f Polysaccharide, 00:00:00 [place] [facility] PPSV23 (PNEUMOVAX) [facility] Zoster Vaccine 2019-04-22 Completed [facility] Recombinant 00:00:00 [facility] TDAP (ADACEL) 2019-04-22 Completed [facility] VACCINE 00:00:00 [facility] HEP B, Adult Dosage 2019-04-22 Completed [facility]ive rsity of 00:00:00 [facility] Pneumococcal 2019-04-22 Completed [facility] Polysaccharide, 00:00:00 [place] [facility] PPSV23 (PNEUMOVAX) [facility] Zoster Vaccine 2019-04-22 Completed [facility] Recombinant 00:00:00 [facility] TDAP (ADACEL) 2019-04-22 Completed [facility] VACCINE 00:00:00 [facility] HEP B, Adult Dosage 2019-04-22 Completed [facility]ive rsity of 00:00:00 [facility] Pneumococcal 2019-04-22 Completed [facility] f Polysaccharide, 00:00:00 [place] [facility] PPSV23 (PNEUMOVAX) [facility] Zoster Vaccine 2019-04-22 Completed [facility] Recombinant 00:00:00 [facility] TDAP (ADACEL) 2019-04-22 Completed [facility] VACCINE 00:00:00 [facility] HEP B, Adult Dosage 2019-04-22 Completed [facility]ive rsity of 00:00:00 [facility] Pneumococcal 2019-04-22 Completed [facility] f Polysaccharide, 00:00:00 [place] [facility] PPSV23 (PNEUMOVAX) [facility] Zoster Vaccine 2019-04-22 Completed [facility] Recombinant 00:00:00 [facility] TDAP (ADACEL) 2019-04-22 Completed [facility] VACCINE 00:00:00 [facility] HEP B, Adult Dosage 2019-04-22 Completed [facility]ive rsity of 00:00:00 [facility] Pneumococcal 2019-04-22 Completed [facility] f Polysaccharide, 00:00:00 [place] [facility] PPSV23 (PNEUMOVAX) [facility] Zoster Vaccine 2019-04-22 Completed [facility] Recombinant 00:00:00 [facility] TDAP (ADACEL) 2019-04-22 Completed [facility] VACCINE 00:00:00 [facility] HEP B, Adult Dosage 2019-04-22 Completed Unive rsity of 00:00:00 [facility] Pneumococcal 2019-04-22 Completed [facility] f Polysaccharide, 00:00:00 [place] [facility] PPSV23 (PNEUMOVAX) [facility] Zoster Vaccine 2019-04-22 Completed [facility] Recombinant 00:00:00 [facility] TDAP (ADACEL) 2019-04-22 Completed [facility] VACCINE 00:00:00 [facility] HEP B, Adult Dosage 2019-04-22 Completed [facility]ive rsity of 00:00:00 [facility] Pneumococcal 2019-04-22 Completed [facility] f Polysaccharide, 00:00:00 [place] [facility] PPSV23 (PNEUMOVAX) [facility] Zoster Vaccine 2019-04-22 Completed [facility] Recombinant 00:00:00 [facility] TDAP (ADACEL) 2019-04-22 Completed [facility] VACCINE 00:00:00 [facility] HEP B, Adult Dosage 2019-04-22 Completed Unive rsity of 00:00:00 [facility] Pneumococcal 2019-04-22 Completed [facility] f Polysaccharide, 00:00:00 [place] [facility] PPSV23 (PNEUMOVAX) [facility] Zoster Vaccine 2019-04-22 Completed [facility] Recombinant 00:00:00 [facility] TDAP (ADACEL) 2019-04-22 Completed [facility] VACCINE 00:00:00 [facility] HEP B, Adult Dosage 2019-04-22 Completed [facility]ive rsity of 00:00:00 [facility] Pneumococcal 2019-04-22 Completed [facility] f Polysaccharide, 00:00:00 [place] [facility] PPSV23 (PNEUMOVAX) [facility] Zoster Vaccine 2019-04-22 Completed [facility] Recombinant 00:00:00 [facility] TDAP (ADACEL) 2019-04-22 Completed [facility] VACCINE 00:00:00 [facility] HEP B, Adult Dosage 2019-04-22 Completed Unive rsity of 00:00:00 [facility] Pneumococcal 2019-04-22 Completed [facility] f Polysaccharide, 00:00:00 [place] [facility] PPSV23 (PNEUMOVAX) [facility] Zoster Vaccine 2019-04-22 Completed [facility] Recombinant 00:00:00 [facility] TDAP (ADACEL) 2019-04-22 Completed [facility] VACCINE 00:00:00 [facility] HEP B, Adult Dosage 2019-04-22 Completed Unive rsity of 00:00:00 [facility] Pneumococcal 2019-04-22 Completed [facility] f Polysaccharide, 00:00:00 [place] [facility] PPSV23 (PNEUMOVAX) [facility] Zoster Vaccine 2019-04-22 Completed [facility] Recombinant 00:00:00 [facility] TDAP (ADACEL) 2019-04-22 Completed [facility] VACCINE 00:00:00 [facility] HEP B, Adult Dosage 2019-04-22 Completed Unive rsity of 00:00:00 [facility] Pneumococcal 2019-04-22 Completed [facility] f Polysaccharide, 00:00:00 [place] [facility] PPSV23 (PNEUMOVAX) [facility] Zoster Vaccine 2019-04-22 Completed [facility] Recombinant 00:00:00 [facility] TDAP (ADACEL) 2019-04-22 Completed [facility] VACCINE 00:00:00 [facility] HEP B, Adult Dosage 2019-04-22 Completed Unive rsity of 00:00:00 [facility] Pneumococcal 2019-04-22 Completed [facility] f Polysaccharide, 00:00:00 [place] [facility] PPSV23 (PNEUMOVAX) [facility] Zoster Vaccine 2019-04-22 Completed [facility] Recombinant 00:00:00 [facility] TDAP (ADACEL) 2019-04-22 Completed [facility] VACCINE 00:00:00 [facility] HEP B, Adult Dosage 2019-04-22 Completed Unive rsity of 00:00:00 [facility] Pneumococcal 2019-04-22 Completed [facility] o f Polysaccharide, 00:00:00 [facility] [place] [facility] ical PPSV23 (PNEUMOVAX) Branch Zoster Vaccine 2019-04-22 Completed [facility] Recombinant 00:00:00 [facility] TDAP (ADACEL) 2019-04-22 Completed [facility] VACCINE 00:00:00 [facility] HEP B, Adult Dosage 2019-04-22 Completed Unive rsity of 00:00:00 [facility] Pneumococcal 2019-04-22 Completed [facility] f Polysaccharide, 00:00:00 [place] [facility] PPSV23 (PNEUMOVAX) [facility] Zoster Vaccine 2019-04-22 Completed [facility] Recombinant 00:00:00 [facility] TDAP (ADACEL) 2019-04-22 Completed [facility] VACCINE 00:00:00 [facility] HEP B, Adult Dosage 2019-04-22 Completed Unive rsity of 00:00:00 [facility] Pneumococcal 2019-04-22 Completed [facility] f Polysaccharide, 00:00:00 [place] [facility] PPSV23 (PNEUMOVAX) [facility] Zoster Vaccine 2019-04-22 Completed [facility] Recombinant 00:00:00 [facility] TDAP (ADACEL) 2019-04-22 Completed [facility] VACCINE 00:00:00 [facility] HEP B, Adult Dosage 2019-04-22 Completed Unive rsity of 00:00:00 [facility] Pneumococcal 2019-04-22 Completed [facility] f Polysaccharide, 00:00:00 [place] [facility] PPSV23 (PNEUMOVAX) [facility] Zoster Vaccine 2019-04-22 Completed [facility] Recombinant 00:00:00 [facility] TDAP (ADACEL) 2019-04-22 Completed [facility] VACCINE 00:00:00 [facility] HEP B, Adult Dosage 2019-04-22 Completed Unive rsity of 00:00:00 [facility] Pneumococcal 2019-04-22 Completed [facility] f Polysaccharide, 00:00:00 [place] [facility] PPSV23 (PNEUMOVAX) [facility] Zoster Vaccine 2019-04-22 Completed [facility] Recombinant 00:00:00 [facility] TDAP (ADACEL) 2019-04-22 Completed [facility] VACCINE 00:00:00 [facility] HEP B, Adult Dosage 2019-04-22 Completed Unive rsity of 00:00:00 [facility] Pneumococcal 2019-04-22 Completed [facility] f Polysaccharide, 00:00:00 [place] [facility] PPSV23 (PNEUMOVAX) [facility] Zoster Vaccine 2019-04-22 Completed [facility] Recombinant 00:00:00 [facility] TDAP (ADACEL) 2019-04-22 Completed [facility] VACCINE 00:00:00 [facility] HEP B, Adult Dosage 2019-04-22 Completed Unive rsity of 00:00:00 [facility] Pneumococcal 2019-04-22 Completed [facility] f Polysaccharide, 00:00:00 [place] [facility] PPSV23 (PNEUMOVAX) [facility] Zoster Vaccine 2019-04-22 Completed [facility] Recombinant 00:00:00 [facility] TDAP (ADACEL) 2019-04-22 Completed [facility] VACCINE 00:00:00 [facility] HEP B, Adult Dosage 2019-04-22 Completed Unive rsity of 00:00:00 [facility] Pneumococcal 2019-04-22 Completed [facility] f Polysaccharide, 00:00:00 [place] [facility] PPSV23 (PNEUMOVAX) [facility] Zoster Vaccine 2019-04-22 Completed [facility] Recombinant 00:00:00 [facility] TDAP (ADACEL) 2019-04-22 Completed [facility] VACCINE 00:00:00 [facility] HEP B, Adult Dosage 2019-04-22 Completed Unive rsity of 00:00:00 [facility] Pneumococcal 2019-04-22 Completed [facility] f Polysaccharide, 00:00:00 [place] [facility] PPSV23 (PNEUMOVAX) [facility] Zoster Vaccine 2019-04-22 Completed [facility] Recombinant 00:00:00 [facility] TDAP (ADACEL) 2019-04-22 Completed [facility] VACCINE 00:00:00 [facility] HEP B, Adult Dosage 2019-04-22 Completed Unive rsity of 00:00:00 [facility] Pneumococcal 2019-04-22 Completed [facility] f Polysaccharide, 00:00:00 [place] [facility] PPSV23 (PNEUMOVAX) [facility] Zoster Vaccine 2019-04-22 Completed [facility] Recombinant 00:00:00 [facility] TDAP (ADACEL) 2019-04-22 Completed [facility] VACCINE 00:00:00 [facility] HEP B, Adult Dosage 2019-04-22 Completed Unive rsity of 00:00:00 [facility] Pneumococcal 2019-04-22 Completed [facility] f Polysaccharide, 00:00:00 [place] [facility] PPSV23 (PNEUMOVAX) [facility] Zoster Vaccine 2019-04-22 Completed [facility] Recombinant 00:00:00 [facility] TDAP (ADACEL) 2019-04-22 Completed [facility] VACCINE 00:00:00 [facility] HEP B, Adult Dosage 2019-04-22 Completed Unive rsity of 00:00:00 [facility] Pneumococcal 2019-04-22 Completed [facility] f Polysaccharide, 00:00:00 [place] [facility] PPSV23 (PNEUMOVAX) [facility] Zoster Vaccine 2019-04-22 Completed [facility] Recombinant 00:00:00 [facility] TDAP (ADACEL) 2019-04-22 Completed [facility] VACCINE 00:00:00 [facility] HEP B, Adult Dosage 2019-04-22 Completed Unive rsity of 00:00:00 [facility] Pneumococcal 2019-04-22 Completed [facility] f Polysaccharide, 00:00:00 [place] [facility] PPSV23 (PNEUMOVAX) [facility] Zoster Vaccine 2019-04-22 Completed [facility] Recombinant 00:00:00 [facility] TDAP (ADACEL) 2019-04-22 Completed [facility] VACCINE 00:00:00 [facility] HEP B, Adult Dosage 2019-04-22 Completed Unive rsity of 00:00:00 [facility] Pneumococcal 2019-04-22 Completed [facility] f Polysaccharide, 00:00:00 [place] [facility] PPSV23 (PNEUMOVAX) [facility] Zoster Vaccine 2019-04-22 Completed [facility] Recombinant 00:00:00 [facility] TDAP (ADACEL) 2019-04-22 Completed [facility] VACCINE 00:00:00 [facility] HEP B, Adult Dosage 2019-04-22 Completed Unive rsity of 00:00:00 [facility] Pneumococcal 2019-04-22 Completed [facility] f Polysaccharide, 00:00:00 [place] [facility] PPSV23 (PNEUMOVAX) [facility] Zoster Vaccine 2019-04-22 Completed [facility] Recombinant 00:00:00 [facility] TDAP (ADACEL) 2019-04-22 Completed [facility] VACCINE 00:00:00 [facility] HEP B, Adult Dosage 2019-04-22 Completed Unive rsity of 00:00:00 [facility] Pneumococcal 2019-04-22 Completed [facility] f Polysaccharide, 00:00:00 [place] [facility] PPSV23 (PNEUMOVAX) [facility] Zoster Vaccine 2019-04-22 Completed [facility] Recombinant 00:00:00 [facility] TDAP (ADACEL) 2019-04-22 Completed [facility] VACCINE 00:00:00 [facility] HEP B, Adult Dosage 2019-04-22 Completed Unive rsity of 00:00:00 [facility] Pneumococcal 2019-04-22 Completed [facility] f Polysaccharide, 00:00:00 [place] [facility] PPSV23 (PNEUMOVAX) [facility] Zoster Vaccine 2019-04-22 Completed [facility] Recombinant 00:00:00 [facility] TDAP (ADACEL) 2019-04-22 Completed [facility] VACCINE 00:00:00 [facility] HEP B, Adult Dosage 2019-04-22 Completed Unive rsity of 00:00:00 [facility] Pneumococcal 2019-04-22 Completed [facility] f Polysaccharide, 00:00:00 [place] [facility] PPSV23 (PNEUMOVAX) [facility] Zoster Vaccine 2019-04-22 Completed [facility] Recombinant 00:00:00 [facility] TDAP (ADACEL) 2019-04-22 Completed [facility] VACCINE 00:00:00 [facility] HEP B, Adult Dosage 2019-04-22 Completed Unive rsity of 00:00:00 [facility] Pneumococcal 2019-04-22 Completed [facility] f Polysaccharide, 00:00:00 [place] [facility] PPSV23 (PNEUMOVAX) [facility] Zoster Vaccine 2019-04-22 Completed [facility] Recombinant 00:00:00 [facility] TDAP (ADACEL) 2019-04-22 Completed [facility] VACCINE 00:00:00 [facility] HEP B, Adult Dosage 2019-04-22 Completed Unive rsity of 00:00:00 [facility] Pneumococcal 2019-04-22 Completed [facility] f Polysaccharide, 00:00:00 [place] [facility] PPSV23 (PNEUMOVAX) [facility] Zoster Vaccine 2019-04-22 Completed [facility] Recombinant 00:00:00 [facility] TDAP (ADACEL) 2019-04-22 Completed [facility] VACCINE 00:00:00 [facility] HEP B, Adult Dosage 2019-04-22 Completed Unive rsity of 00:00:00 [facility] Pneumococcal 2019-04-22 Completed [facility] f Polysaccharide, 00:00:00 [place] [facility] PPSV23 (PNEUMOVAX) [facility] Zoster Vaccine 2019-04-22 Completed [facility] Recombinant 00:00:00 [facility] TDAP (ADACEL) 2019-04-22 Completed [facility] VACCINE 00:00:00 [facility] HEP B, Adult Dosage 2019-04-22 Completed Unive rsity of 00:00:00 [facility] Pneumococcal 2019-04-22 Completed [facility] f Polysaccharide, 00:00:00 [place] [facility] PPSV23 (PNEUMOVAX) [facility] Zoster Vaccine 2019-04-22 Completed [facility] Recombinant 00:00:00 [facility] TDAP (ADACEL) 2019-04-22 Completed [facility] VACCINE 00:00:00 [facility] HEP B, Adult Dosage 2019-04-22 Completed Unive rsity of 00:00:00 [facility] Pneumococcal 2019-04-22 Completed [facility] f Polysaccharide, 00:00:00 [place] [facility] PPSV23 (PNEUMOVAX) [facility] Zoster Vaccine 2019-04-22 Completed [facility] Recombinant 00:00:00 [facility] TDAP (ADACEL) 2019-04-22 Completed [facility] VACCINE 00:00:00 [facility] HEP B, Adult Dosage 2019-04-22 Completed Unive rsity of 00:00:00 [facility] Pneumococcal 2019-04-22 Completed [facility] f Polysaccharide, 00:00:00 [place] [facility] PPSV23 (PNEUMOVAX) Branch Zoster Vaccine 2019-04-22 Completed [facility] Recombinant 00:00:00 [facility] TDAP (ADACEL) 2019-04-22 Completed [facility] VACCINE 00:00:00 [facility] HEP B, Adult Dosage 2019-04-22 Completed Unive rsity of 00:00:00 [facility] Pneumococcal 2019-04-22 Completed [facility] f Polysaccharide, 00:00:00 [place] [facility] PPSV23 (PNEUMOVAX) [facility] Zoster Vaccine 2019-04-22 Completed [facility] Recombinant 00:00:00 [facility] TDAP (ADACEL) 2019-04-22 Completed [facility] VACCINE 00:00:00 [facility] HEP B, Adult Dosage 2019-04-22 Completed Unive rsity of 00:00:00 [facility] Pneumococcal 2019-04-22 Completed [facility] f Polysaccharide, 00:00:00 [place] [facility] PPSV23 (PNEUMOVAX) Branch Zoster Vaccine 2019-04-22 Completed [facility] Recombinant 00:00:00 [facility] TDAP (ADACEL) 2019-04-22 Completed [facility] VACCINE 00:00:00 [facility] HEP B, Adult Dosage 2019-04-22 Completed Unive rsity of 00:00:00 [facility] Pneumococcal 2019-04-22 Completed [facility] o f Polysaccharide, 00:00:00 [facility] ical PPSV23 (PNEUMOVAX) Branch Zoster Vaccine 2019-04-22 Completed [facility] Recombinant 00:00:00 [facility] TDAP (ADACEL) 2019-04-22 Completed [facility] VACCINE 00:00:00 [facility] HEP B, Adult Dosage 2019-04-22 Completed [facility] rsity of 00:00:00 [facility] Pneumococcal 2019-04-22 Completed [facility] f Polysaccharide, 00:00:00 [place] [facility] PPSV23 (PNEUMOVAX) Branch Zoster Vaccine 2019-04-22 Completed [facility] Recombinant 00:00:00 [facility] TDAP (ADACEL) 2019-04-22 Completed [facility] VACCINE 00:00:00 [facility] HEP B, Adult Dosage 2019-04-22 Completed [facility] rsity of 00:00:00 [facility] Pneumococcal 2019-04-22 Completed [facility] o f Polysaccharide, 00:00:00 [place] [facility] PPSV23 (PNEUMOVAX) Branch Zoster Vaccine 2019-04-22 Completed [facility] Recombinant 00:00:00 [facility] TDAP (ADACEL) 2019-04-22 Completed [facility] VACCINE 00:00:00 [facility] HEP B, Adult Dosage 2019-04-22 Completed [facility]ive rsity of 00:00:00 [facility] Pneumococcal 2019-04-22 Completed University o f Polysaccharide, 00:00:00 [place] [facility] PPSV23 (PNEUMOVAX) Branch Zoster Vaccine 2019-04-22 Completed University of Recombinant 00:00:00 [facility] TDAP (ADACEL) 2019-04-22 Completed University of VACCINE 00:00:00 [facility] HEP B, Adult Dosage 2019-04-22 Completed Unive rsity of 00:00:00 [facility] Pneumococcal 2019-04-22 Completed University o f Polysaccharide, 00:00:00 [place] [facility] PPSV23 (PNEUMOVAX) Branch Zoster Vaccine 2019-04-22 Completed University of Recombinant 00:00:00 [facility] TDAP (ADACEL) 2019-04-22 Completed University of VACCINE 00:00:00 [facility] HEP B, Adult Dosage 2019-04-22 Completed Unive rsity of 00:00:00 [facility] Pneumococcal 2019-04-22 Completed University o f Polysaccharide, 00:00:00 [facility] ical PPSV23 (PNEUMOVAX) Branch Zoster Vaccine 2019-04-22 Completed University of Recombinant 00:00:00 [facility] TDAP (ADACEL) 2019-04-22 Completed University of VACCINE 00:00:00 [facility] HEP B, Adult Dosage 2019-04-22 Completed Unive rsity of 00:00:00 [facility] Pneumococcal 2019-04-22 Completed University o f Polysaccharide, 00:00:00 [facility] ical PPSV23 (PNEUMOVAX) Branch Zoster Vaccine 2019-04-22 Completed University of Recombinant 00:00:00 [facility] TDAP (ADACEL) 2019-04-22 Completed University of VACCINE 00:00:00 [facility] HEP B, Adult Dosage 2019-04-22 Completed Unive rsity of 00:00:00 [facility] Pneumococcal 2019-04-22 Completed University o f Polysaccharide, 00:00:00 [place] [facility] PPSV23 (PNEUMOVAX) Branch Zoster Vaccine 2019-04-22 Completed University of Recombinant 00:00:00 [facility] TDAP (ADACEL) 2019-04-22 Completed University of VACCINE 00:00:00 [facility] HEP B, Adult Dosage 2019-04-22 Completed Unive rsity of 00:00:00 [facility] Pneumococcal 2019-04-22 Completed University o f Polysaccharide, 00:00:00 [place] [facility] PPSV23 (PNEUMOVAX) Branch Zoster Vaccine 2019-04-22 Completed University of Recombinant 00:00:00 [facility] TDAP (ADACEL) 2019-04-22 Completed University of VACCINE 00:00:00 [facility] HEP B, Adult Dosage 2019-04-22 Completed Unive rsity of 00:00:00 [facility] Pneumococcal 2019-04-22 Completed University o f Polysaccharide, 00:00:00 [place] [facility] PPSV23 (PNEUMOVAX) Branch Zoster Vaccine 2019-04-22 Completed University of Recombinant 00:00:00 [facility] TDAP (ADACEL) 2019-04-22 Completed University of VACCINE 00:00:00 [facility] HEP B, Adult Dosage 2019-04-22 Completed Unive rsity of 00:00:00 [facility] Pneumococcal 2019-04-22 Completed University o f Polysaccharide, 00:00:00 [place] [facility] PPSV23 (PNEUMOVAX) Branch Zoster Vaccine 2019-04-22 Completed University of Recombinant 00:00:00 [facility] TDAP (ADACEL) 2019-04-22 Completed University of VACCINE 00:00:00 [facility] HEP B, Adult Dosage 2019-04-22 Completed Unive rsity of 00:00:00 [facility] Pneumococcal 2019-04-22 Completed University o f Polysaccharide, 00:00:00 [place] [facility] PPSV23 (PNEUMOVAX) Branch Zoster Vaccine 2019-04-22 Completed University of Recombinant 00:00:00 [facility] TDAP (ADACEL) 2019-04-22 Completed University of VACCINE 00:00:00 [facility] HEP B, Adult Dosage 2019-04-22 Completed Unive rsity of 00:00:00 [facility] Vital Signs Vital Name Observation Time Observation Value Comments Source Systolic blood 2021-03-15 15:55:00 130 mm[Hg] Univer sity of pressure [facility] Diastolic blood 2021-03-15 15:55:00 84 mm[Hg] Unive rsity of pressure [facility] Heart rate 2021-03-15 15:55:00 115 /min [facility] Body temperature 2021-03-15 15:55:00 36.56 Leanne Univ ersity [facility] Respiratory rate 2021-03-15 15:55:00 18 /min [facility] Body height 2021-03-15 15:55:00 170.2 cm [facility] Body weight 2021-03-15 15:55:00 70.852 kg [facility] BMI 2021-03-15 15:55:00 24.46 kg/m2 [facility] Oxygen saturation in 2021-03-15 15:55:00 99 /min University of Arterial blood by [facility] luanne Pulse oximetry Branch Systolic blood 2019-12-14 18:46:00 140 mm[Hg] Univer sity of pressure [facility] Diastolic blood 2019-12-14 18:46:00 89 mm[Hg] Unive rsity of pressure [facility] Heart rate 2019-12-14 18:45:00 75 /min [facility]i [facility] Body temperature 2019-12-14 18:45:00 36.78 Leanne Univ ersity of [facility] Body weight 2019-12-14 18:45:00 74.707 kg [facility] BMI 2019-12-14 18:45:00 25.80 kg/m2 [facility] Oxygen saturation in 2019-12-14 18:45:00 100 /min University of Arterial blood by [facility] Pulse oximetry Branch Systolic blood 2019-09-02 16:45:00 116 mm[Hg] Univer sity of pressure [facility] Diastolic blood 2019-09-02 16:45:00 72 mm[Hg] Unive rsity of pressure [facility] Heart rate 2019-09-02 16:45:00 69 /min [facility] Body temperature 2019-09-02 16:45:00 37 Leanne Univ ersity [facility] Respiratory rate 2019-09-02 16:45:00 12 /min Univ ersity of [facility] Body height 2019-09-02 16:45:00 170.2 cm [facility] Body weight 2019-09-02 16:45:00 73.846 kg [facility] BMI 2019-09-02 16:45:00 25.50 kg/m2 [facility] Systolic blood 2019-04-22 15:56:00 124 mm[Hg] Univer sity of pressure [facility] Diastolic blood 2019-04-22 15:56:00 72 mm[Hg] Unive rsity of pressure [facility] Heart rate 2019-04-22 15:56:00 69 /min [facility] Body temperature 2019-04-22 15:56:00 36.83 Leanne [facility] Respiratory rate 2019-04-22 15:56:00 16 /min [facility] acute hospital Body height 2019-04-22 15:56:00 170.2 cm [facility] Body weight 2019-04-22 15:56:00 71.079 kg [facility] BMI 2019-04-22 15:56:00 24.54 kg/m2 [facility] Procedures Procedure Date / Time Performing Clinician Source Performed NOTICE OF PRIVACY 2021-05-31 19:02:08 Doctor Unastephanieigned, [facility] PRACTICES [facility] CONSENT/REFUSAL FOR 2021-05-31 19:01:35 Doctor Eyal, [facility] DIAGNOSIS AND TREATMENT [facility] [place] ASSIGNMENT OF BENEFITS 2021-05-31 19:01:14 Doctor Unassigned, [facility] PATIENT QUESTIONNAIRE 2021-05-24 05:01:00 Doctor Unajun, [facility] [place] AUTHORIZATION FOR RELEASE 2021-05-16 05:01:00 Doctor Unajun, [facility] US ABDOMEN COMPLETE 2021-05-02 19:31:30 Roberto Reddy [facility] CT ABDOMEN PELVIS W WO 2021-01-17 18:28:34 Requisition, Paper Un [facility] CONTRAST Medical [place] HB CREATININE BLOOD 2021-01-17 18:06:00 Radiology [facility] CONSENT/REFUSAL FOR 2021-01-17 17:43:43 Doctor Eyal, [facility] DIAGNOSIS AND TREATMENT [facility] ASSIGNMENT OF BENEFITS 2021-01-17 17:41:26 [facility] US ABDOMEN COMPLETE 2020-12-15 18:56:19 Lavonne Heller [facility] HEPATIC FUNCTION PANEL 2020-12-11 21:07:00 Roberto Reddy [facility] ([id number]) (ALB,T.PRO,BILI Medical Branch T,BU/BC,ALT,AST,ALK PHOS) BASIC METABOLIC PANEL 2020-12-11 21:07:00 Roberto Reddy [facility] (NA, K, CL, CO2, GLUCOSE, Medica l Branch BUN, CREATININE, CA) ALPHA FETOPROTEIN 2020-12-11 21:07:00 Roberto Reddy [facility] CBC WITH DIFF 2020-12-11 21:07:00 Roberto Reddy [place] [facility] PROTHROMBIN TIME / INR 2020-12-11 21:07:00 Roberto Reddy [facility] ACTIVATED PARTIAL 2020-12-11 21:07:00 Roberto Reddy [facility] THRFormerly [facility] ASSIGNMENT OF BENEFITS 2020-12-11 20:48:45 Doctor Unassigned, [facility] US ABDOMEN COMPLETE 2020-07-05 20:59:43 Roberto Reddy [facility] AUTHORIZATION FOR RELEASE 2020-03-10 05:01:00 Doctor Unassigned, [facility] BONE WHOLE BODY 2020-01-11 18:36:00 Levi Brizuela [facility] NM BONE WHOLE BODY 2020-01-11 18:36:00 Levi Brizuela [facility] HB CREATININE BLOOD 2020-01-11 16:28:00 Levi Brizuela [facility] CT THORAX WO CONTRAST 2020-01-11 16:20:00 Levi [facility] ABDOMEN W WO CONTRAST 2020-01-11 15:42:00 Levi Brizuela [facility] CBC WITH DIFFERENTIAL 2020-01-11 15:00:00 Yolanda Brizuela [facility] PROTHROMBIN TIME / INR 2020-01-11 15:00:00 Yolanda Brizuela [facility] NOTICE OF PRIVACY 2020-01-11 14:40:48 Doctor Eyal, [facility] PRACTICES [facility] CONSENT/REFUSAL FOR 2020-01-11 14:39:00 Doctor Eyal [facility] DIAGNOSIS AND TREATMENT [facility] ASSIGNMENT OF BENEFITS 2020-01-11 14:38:43 Doctor Eyal, [facility] [place] (HEP A/HEP 2019-12-14 18:46:57 Levi Brizuela [facility] B)VACCINE Medical Branch AGREEMENTS AUTHORIZATIONS 2019-11-25 05:01:00 Doctor Eyal, [facility] AND IRREVOCABLE [facility] ASSIGNMENTS (FORM 2001) HB CREATININE BLOOD 2019-09-24 20:23:00 Levi Brizuela [facility] Medical [place] CT THORAX WO CONTRAST 2019-09-24 20:10:00 Levi Brizuela [facility] [place] ASSIGNMENT OF BENEFITS 2019-09-24 19:22:11 Doctor Eyal, [facility] ASSIGNMENT OF BENEFITS 2019-09-02 16:38:55 Doctor Eyal, [facility] HEPATITIS B 2019-04-22 16:41:19 [facility] VACCINE,ADULT,IM [facility] PNEUMOCOCCAL VACCINE, 2019-04-22 16:41:19 [facility] 23-VALENT (PNEUMOVAX) [facility] anch TDAP (ADACEL) 2019-04-22 16:41:19 [facility] IMMUNIZATION [facility] VARICELLA-ZOSTER VACCINE, 2019-04-22 16:41:19 [facility] (SH[facility] 50 MCG/0.5 ML[facility] ABDOMEN PELVIS W WO 2019-03-31 15:41:42 Levi Brizuela [facility] CONTRAST Medical Branch CT THORAX WO CONTRAST 2019-03-31 13:57:50 Levi Brizuela [facility] [place] CONSENT/REFUSAL FOR 2019-03-31 13:21:37 Doctor Birch [facility] DIAGNOSIS AND TREATMENT [facility] ASSIGNMENT OF BENEFITS 2019-03-31 13:21:17 Doctor Unassigned, [facility] [place] [facility] TRANSPLANT/EXT PROVIDER 2019-02-23 05:01:00 [facility] [place] Encounters Start End Encounter Admission Attending Care Care Encounter Source Date/Time Date/Time Type Type Clinicians Facility Department ID 2021-07-17 2021-07-17 Outpatient R RAVINDER [facility] [id number] Univers 15:30:00 15:30:00 MARKOS [id number] ity o f [facility] 2021-06-15 2021-06-15 Outpatient R [facility]LOTTA [facility] [id number] Univers 13:30:00 13:30:00 [id number] ity [facility] 2021-06-15 2021-06-15 Outpatient Manish HAMMERCyndi [facility] RAD [id number] Univers 00:00:00 00:00:00 ity [facility] 2021-05-31 2021-05-31 Hospital Radiology [facility] 1.2.840.114 [id number] Univers 14:00:00 23:59:00 Encounter Radha [id number] ity [facility] [id number] [facility] [id number] [address] 2021-05-31 2021-05-31 Airplane Pilot Chief Florian Carter Lab Main [facility] 1.2.8 40.114 [id number] Univers 14:14:50 14:29:50 Visit Dank Burk [id number] [facility] 4.2.7.2.686 [facility] [id number] Ri dical [facility] [address] [place] Building 2021-05-31 2021-05-31 Outpatient R RADIOLOGY [facility] [id number] Univers 00:00:00 00:00:00 [id number] ity [facility] 2021-05-31 2021-05-31 Outpatient R RADIOLOGY [facility] [id number] Univers 00:00:00 00:00:00 ity [facility] 2021-05-24 2021-05-24 Orders Doctor MAN 1.2.840.114 [id number] Univers 00:00:00 00:00:00 Only Unassigned, ANGEL [id number] ity of [place] [facility] 4.2.7.2.686 Yamil as [phone] [facility] 009 Branch 2021-05-16 2021-05-16 Orders Doctor MAGDA 1.2.840.114 [id number] Univers 00:00:00 00:00:00 Only Unassigned, ANGEL [id number] ity of [place] [facility] 4.2.7.2.686 Yamil as [id number] [facility] 009 Branch 2021-05-02 2021-05-02 [facility] 1.2.840.114 [id number] Univers 13:43:17 23:59:00 Encounter [place] [id number] ity of [employer] [place] [id number] [facility] 806 Branch 2021-05-02 2021-05-02 Outpatient [facility] [id number] Univers 14:00:00 14:00:00 [id number] ity of [facility] 2021-05-02 2021-05-02 Outpatient [facility] [id number] Univers 00:00:00 00:00:00 ity of [facility] 2021-04-27 2021-04-27 Telephone Beto [facility] [id number] Univers 00:00:00 00:00:00 Levi DEPEC [id number] ity of [place] [phone] [facility] AND RAMONE 072 Branch DIABETES CLINIC 2021-03-29 2021-03-29 Telephone Dipak Hamilton 1.2.840.11 [id number] Univers 00:00:00 00:00:00 [facility] [id number] i ty of CL[place] [id number] [facility] 089 Branch 2021-03-15 2021-03-15 Office Dipak Hamilton 1.2.840.114 [id number] Univers 10:42:15 11:12:15 Visit Melvin Y HEALTH [id number] i ty [place] [id number] [address] 2021-03-15 2021-03-15 Outpatient R DIPAK HAMILTON [facility] [id number] Univers 10:30:00 10:30:00 [id number] ity of [facility] 2021-03-15 2021-03-15 Outpatient R DIPAK HAMILTON [facility] [id number] Univers 10:30:00 10:30:00 ity [facility] 2021-03-02 2021-03-02 Telephone Dipak Hamilton 1.2.840.11 [id number] Univers 00:00:00 00:00:00 Melvin Y HEALTH [id number] i ty [place] [id number] [address] 2021-01-17 2021-01-17 Hospital Radiology [facility] 1.2.840.114 [id number] Univers 12:42:00 23:59:00 Encounter [place] [id number] ity [facility] 4.2.7.2.686 [facility] [phone] [facility] 801 Branch 2021-01-17 2021-01-17 Outpatient R RADIOLOGY [facility] [id number] Univers 13:00:00 13:00:00 [id number] ity of [facility] 2021-01-17 2021-01-17 Outpatient R RADIOLOGY [facility] [id number] Univers 00:00:00 00:00:00 ity [facility] 2020-12-15 2020-12-15 [facility] 1.2.840.114 [id number] Univers 13:20:46 23:59:00 Encounter Lavonne Bethea [place] [id number] ity of [employer] 4.2.7.2.686 [facility] [id number] [facility] 806 Branch 2020-12-15 2020-12-15 Outpatient R PORSHA, [facility] [id number] Univers 13:30:00 13:30:00 [facility] [id number] ity [facility] 2020-12-15 2020-12-15 [facility] [id number] Univers 00:00:00 00:00:00 LAVONNE ity [facility] 2020-12-11 2020-12-11 Airplane Pilot Chief Emma, Florian Lab Main [facility] 1.2.8 40.114 [id number] Univers 15:46:41 16:01:41 [facility] Radha [id number] ity of [employer] 4.2.7.2.686 Isa Luque [phone] Ri dical [facility] [address] [facility] 2020-12-11 2020-12-11 Outpatient R [facility] [id number] Univers 15:45:00 15:45:00 [id number] ity of [facility] 2020-12-11 2020-12-[address] [facility] [id number] Univers 15:45:00 15:45:00 ity [facility] 2020-12-11 2020-12-11 Orders Doctor MAGDA 1.2.840.114 [id number] Univers 00:00:00 00:00:00 Only Unassigned, ANGEL [id number] ity of [place] [facility] 4.2.7.2.686 Yamil as [id number] [place] [address] Branch 2020-10-17 2020-10-17 [facility] 1.2.840.114 [id number] Univers 00:00:00 00:00:00 Outreach Uday PRIMARY [id number] i ty of [facility] 4.2.7.2.686 Isa ABAD [id number] Ri dical 388 Branch 2020-07-05 2020-07-05 [facility] 1.2.840.114 [id number] Univers 13:50:42 23:59:00 Encounter [place] [id number] ity of [employer] [place] [id number] [facility] 806 Branch 2020-07-05 2020-07-05 Airplane Pilot Chief Emma, Adc Lab Main [facility] 1.2.8 40.114 [id number] Univers 13:53:41 14:08:41 Visit Roberto Reddyton 350.1.13.10 ity of [employer] [place].2.[place].2.[place] [facility] [id number] Ri dical [facility] [address] [facility] 2020-07-05 2020-07-05 Outpatient R MAUREEN [facility] [id number] Univers 14:00:00 14:00:00 [id number] ity of [facility] 2020-07-05 2020-07-05 Outpatient R MAUREEN [facility] [id number] Univers 00:00:00 00:00:00 ity of [facility] 2020-07-04 2020-07-04 Airplane Pilot Chief [facility] UN[facility] 1.2.840.114 [id number] Univers 15:54:38 16:09:38 Visit Pathology [place] [id number] ity of CL[place]ICS [place] [id number] [facility] [address] [place] 2020-07-04 2020-07-04 Outpatient R [facility] [id number] Univers 16:00:00 16:00:00 [id number] ity of [facility] 2020-07-04 2020-07-04 Outpatient R PATHOLOGY [facility] [id number] Univers 16:00:00 16:00:00 ity of [facility] 2020-03-10 2020-03-10 Orders Doctor MAN 1.2.840.114 [id number] Univers 00:00:00 00:00:00 Only Unassigned, ANGEL [id number] ity of [place] [facility] 4.2.7.2.686 Yamil as [phone] [facility] 009 Branch 2020-02-28 2020-02-28 Airplane Pilot Chief Emma, Adc Lab Main [facility] 1.2.8 40.114 [id number] Univers 13:01:42 13:16:42 Visit Dipak [place] 350.1.13.10 ity of [employer] [place].2.[place] [id number] Ri dical nal [address] [facility] 2020-02-28 2020-02-28 Outpatient R [facility] [id number] Univers 13:00:00 13:00:00 [id number] ity [facility] 2020-02-28 2020-02-28 Outpatient R DIPAK HAMILTON [facility] [id number] Univers 13:00:00 13:00:00 ity [facility] 2020-02-24 2020-02-24 Telephone Dipak Hamilton [facility]ERS[facility] 1.2.840.11 [id number] Univers 00:00:00 00:00:00 [facility] 350.1.13.10 i ty [facility] [place].7.2.[id number] [id number] [place] 2020-01-24 2020-01-24 [facility] [id number] Univers 13:00:00 13:00:00 [facility]EVI [id number] [facility] 2020-01-24 2020-01-24 Outpatient R [facility] [id number] Univers 08:00:00 08:00:00 [facility] 2020-01-24 2020-01-24 [facility] [id number] Univers 08:00:00 08:00:00 [facility] 2020-01-12 2020-01-12 Outpatient R [facility] [id number] Univers 10:30:00 10:30:00 LEVI [id number] [facility] 2020-01-12 2020-01-12 Outpatient R [facility] [id number] Univers 10:00:00 10:00:00 [facility] 2020-01-11 2020-01-11 [facility] 1.2.840.114 [id number] Univers 09:34:00 23:59:00 [facility] Levi [place] [id number] ity [facility] 4.2.7.2.686 [facility] [id number] [facility] 805 [place] 2020-01-11 2020-01-11 Outpatient R BETO [facility] [id number] Univers 11:00:00 11:00:00 LEVI [id number] ity of [facility] 2020-01-11 2020-01-11 Airplane Pilot Chief Emma, Adc Lab Main [facility] 1.2.8 40.114 [id number] Univers 09:47:13 10:02:13 Visit Yoselin Brizuelajustus [place] 350.1.1 3.10 ity of [employer] 4.2.7.2.686 [facility] [id number] Ri dical [facility] [address] [facility] 2020-01-11 2020-01-11 [facility] 1.2.840.114 [id number] Univers 09:31:00 09:33:00 Encounter Levi Garcia 350.1.13.10 ity of [employer] [address] [place] [id number] 2020-01-11 2020-01-11 [facility] 1.2.840.114 [id number] Univers 09:30:00 09:30:00 Encounter Levi Garcia [id number] ity of [employer] [address].7.[address] [place] [id number] 2020-01-11 2020-01-11 Outpatient R BETO [facility] [id number] Univers 09:29:27 09:29:00 LEVI ity of [facility] 2020-01-11 2020-01-11 [facility] 1.2.840.114 [id number] Univers 09:29:00 09:29:00 Encounter Levi Garcia 350.1.13.10 ity of [employer] [address].7.[address] [place] [id number] 2019-12-14 2019-12-14 Outpatient R [facility] [id number] Univers 14:00:00 14:00:00 [id number] ity of [facility] 2019-12-14 2019-12-14 Outpatient R BETO [facility] [id number] Univers 14:00:00 14:00:00 LEVI ity of [facility] 2019-12-14 2019-12-14 Nurse Nurse, Alfonso-Leylac Gastro [facility] 1.2. 840.114 [id number] Univers 13:16:45 13:55:10 Visit Yoselin Brizuelacasie MULTISPEC 350.1.13.1 0 ity of [place] [phone] [facility] AND RAMONE [address] [place] [facility] 2019-11-25 2019-11-25 Airplane Pilot Chief 2, Adc Lab [facility] 1.2.840.114 [id number] Univers 15:03:05 15:18:05 Visit Dipak Hamilton [place] 350.1.13.10 ity of [employer] [place] [phone] Ri dical nal 353 [facility] 2019-11-25 2019-11-25 Outpatient R ALFONSO DIPAK [facility] [id number] Univers 10:00:00 10:00:00 [id number] ity of [facility] 2019-11-25 2019-11-25 Outpatient R ALFONSO DIPAK [facility] [id number] Univers 10:00:00 10:00:00 ity of [facility] 2019-11-25 2019-11-25 Telemedici Dipak HamiltonIT 1.2.840.1 [id number] Univers 07:22:47 07:52:47 ne Visit Melvin [facility] 350.1.13.10 [place] [phone] [facility] [address] 2019-11-25 2019-11-25 Orders Doctor MAGDA 1.2.840.114 [id number] Univers 00:00:00 00:00:00 Only Unassigned, ANGEL 350.1.13.10 ity of [place] [facility] 4.2.7.2.686 Yamil as [phone] [facility] [address] 2019-11-24 2019-11-24 Outpatient R [facility] [id number] Univers 15:30:00 15:30:00 ity of [facility] 2019-11-22 2019-11-22 Outpatient R [facility] [id number] Univers 13:00:00 13:00:00 ity [facility] 2019-11-22 2019-11-22 Telephone Dipak Hamilton 1.2.840.11 [id number] Univers 00:00:00 00:00:00 Melvin Y HEALTH 350.1.13.10 i [place] [phone] [address] 2019-11-12 2019-11-12 Outpatient R [facility] [id number] Univers 13:30:00 13:30:00 OSMARYAR ity [facility] 2019-11-09 2019-11-09 Telephone Dipak Hamilton 1.2.840.11 [id number] Univers 00:00:00 00:00:00 Melvin HEALTH 350.1.13.10 i [place] [id number] [address] 2019-10-20 2019-10-20 Telephone Dipak Hamilton 1.2.840.11 [id number] Univers 00:00:00 00:00:00 Melvin Y HEALTH 350.1.13.10 i [place] [id number] [address] 2019-09-24 2019-09-24 Hospital [facility] 1.2.840.114 [id number] Univers 13:25:00 23:59:00 Encounter Levi Garica 350.1.13.10 ity of [employer] [place] [phone] [address] 2019-09-24 2019-09-24 Airplane Pilot Chief Emma, Florian Lab Main [facility] 1.2.8 40.114 [id number] Univers 13:22:28 13:37:28 Visit Levi Brizuela 350.1.13.10 ity [place] [employer] [place] [facility] [phone] Ri dical nal 353 [facility] 2019-09-24 2019-09-24 Outpatient R BETO [facility] [id number] Univers 13:30:00 13:30:00 LEVI ity of [facility] 2019-09-24 2019-09-24 [facility] 1.2.840.114 [id number] Univers 13:24:00 13:24:00 Encounter Levi Garcia 350.1.13.10 ity of [employer] [place] [phone] [facility] [address] [place] 2019-09-24 2019-09-24 Orders Doctor MAGDA 1.2.840.114 [id number] Univers 00:00:00 00:00:00 Only Unassigned, ANGEL 350.1.13.10 ity of [place] [facility] 4.2.7.2.686 [place] as [phone] [address] 2019-09-13 2019-09-13 Telephone Alfonso Dipak [facility] 1.2.840.11 [id number] Univers 00:00:00 00:00:00 [facility] 350.1.13.10 i ty [place] [phone] [address] 2019-09-02 2019-09-02 Office AlfonsoDipak [facility] 1.2.840.114 [id number] Univers 10:39:32 11:41:10 Visit [facility] 350.1.13.10 i ty [place] [id number] [address] 2019-09-02 2019-09-02 Orders Doctor MAGDA 1.2.840.114 [id number] Univers 00:00:00 00:00:00 Only Unassigned, ANGEL 350.1.13.10 ity of [place] [facility] 4.2.7.2.686 [place] [phone] [address] 2019-05-03 2019-05-03 [facility] 1.2.840.114 [id number] Univers 00:00:00 00:00:00 Sol Villagomez MULTISPEC 350.1.13.10 it[place] [phone] [facility] [address] [place] [facility] 2019-04-22 2019-04-22 [facility] 1.2.205.837 [id number] Univers 10:50:44 12:00:41 Visit Myrtle Stauffer [place] 350.1.13.10 i ty of [place] [facility] [place] [phone] [facility] [address] 2019-04-15 2019-04-15 Abstract [facility] 1.2.840.114 [id number] Univers 00:00:00 00:00:00 Ashvin Hanna MULTISPEC 350.1.13.10 [place] [phone] [facility] [address] [place] [facility] 2019-04-13 2019-04-13 Telephone Beto [facility] 1.2.989.652 [id number] Univers 00:00:00 00:00:00 Yolanda MULTISPEC 350.1.13.10 ity of [place] [phone] [facility] [address] [place] [facility] 2019-04-09 2019-04-09 Telephone Dipak Hamilton 1.2.840.11 [id number] Univers 00:00:00 00:00:00 Melvin [facility] 350.1.13.10 i ty [place] [phone] [facility] [address] 2019-03-31 2019-04-01 Airplane Pilot Chief 1, Adc Lab [facility] 1.2.840.114 [id number] Univers 15:10:37 10:37:11 Visit Dipak [place] 350.1.13.10 ity of [place] [phone] [facility] [address] 2019-04-01 2019-04-01 Outpatient R BETO [facility] [id number] Univers 00:00:00 00:00:00 LEVI [id number] ity of [facility] 2019-03-31 2019-03-31 [facility] 1.2.840.114 [id number] Univers 08:21:16 23:59:00 Encounter Levi Garcia 350.1.13.10 ity of [employer] 4.2.7.2.686 [facility] [phone] [facility] [address] 2019-03-31 2019-03-31 Outpatient R DIPAK HAMILTON [facility] [id number] Univers 15:15:00 15:15:00 ity of [facility] 2019-03-31 2019-03-31 [facility] 1.2.840.114 [id number] Univers 08:19:50 08:20:00 Encounter Levi Garcia 350.1.13.10 ity of [employer] 4.2.7.2.686 [facility] [place] [phone] [facility] [address] 2019-03-24 2019-03-24 Telephone [facility] 1.2.120.645 [id number] Univers 00:00:00 00:00:00 Yolanda DEPEC 350.1.13.10 ity of [place] 4.2.7.2.686 [facility] s [place] [phone] [facility] [place] [address] [facility] 2019-03-16 2019-03-16 [facility] 1.2.840.114 [id number] Univers 00:00:00 00:00:00 Management Levi HA 350.1.13.10 ity of [place] 4.2.7.2.686 [facility] [place] [phone] [facility] [address] [place] [facility] 2019-02-23 2019-02-23 Orders Doctor MAN 1.2.840.114 [id number] Univers 00:00:00 00:00:00 Only Unassigned, ANGEL 350.1.13.10 ity of [place] [facility] 4.2.7.2.686 [place] [phone] [facility] [address] 2018-10-15 2018-10-15 Outpatient R [facility] [id number] Univers 00:00:00 00:00:00 YOLANDA [facility] 2018-06-05 2018-06-06 Outpatient [facility] [id number] [facility] 12:29:00 04:59:00 [facility] 00 l [facility] Results Test Description Test Time Test Comments Results Result Comments Source POCT CREATININE 2021-01-17 23:08:49 Test Item Value Reference Range Interpretation Comme nts POCT Creatinine (test code = 3966301022) 1.3 mg/dL 0.6-1.3 Lab Interpretation (test code = 76844-5) Normal [facility] P[facility] W WO [id number] 21:33:551. Cirrhosis of the liver is again identified.2. There appears to have been prior embolization therapy of a hepatomawithin the anterior/superior hepatic dome. There does appear to be residualnodular enhancement along the medial aspect of this lesion which issuspicious for residual viable tumor.3. Several nodular foci of arterial enhancement are identified throughoutthe liver which wash down to isodensity with the hepatic parenchyma on themore delayed postcontrast images. These are suspected to result from benignfoci arterialization, however, continued attention to these lesions onfollow-up studies is recommended to exclude multifocal hepatomas.4. Splenomegaly is identified indicating portal hypertension.5. A gallstone is present in the gallbladder.6. 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 RL: 2831 Study: Triple phase CT ofthe abdomen and pelvis without and with contrast. HISTORY: Cirrhosis of the liver, evaluate for hepatoma. Ordering physician: JEAN MARIE CABRERA TECHNIQUE: Axial CT images were obtained through the abdomen and pelvis at3 mm intervals before and following the administration of 100 cc ofIsovue-370 intravenously. Post contrast imaging was obtained during thearterial, portal venous and delayed phases. CT scan was performed accordingto ALARA (As Low as Reasonably Achievable). COMPARISON: No prior studies available for comparison. FINDINGS: Evaluation of the liver demonstrates marked nodularity of thehepatic contour with a diffusely hypodense appearance of the hepaticparenchyma. The findings are compatible with cirrhosis of the liver. There appears to have been prior embolization therapy of an exophytic massarising from the anterior/superior aspect of the hepatic dome which is bestvisualized on image 16 of series 8 and image 18 of series 16. Coil embolicmaterial appears be present at the junction of the left and right hepaticlobes. There is an exophytic mass projecting from the anterior/superioraspect thehepatic dome which measures 2.7 x 1.1 cm. The medial aspect ofthis mass demonstrates avid arterial enhancement with wash down on the moredelayed postcontrast images. The nodular area of enhancement measures 1.5cm in greatest dimension. The findings appear most compatible with residualenhancing malignancy in this region. There are several additional nodular foci of arterial enhancement with washdown to isodensity with the adjacent hepatic parenchyma. For example, alesion within the anterior hepatic do me on image 18 of series 8 measures 7mm. A 1.4 cm nodular focus of enhancement is identified within segment 7 onimage 26 of series 8. An 8 mm focus of arterial enhancement within segment 2 is identified onimage 29 series 8. A 1.4 cm nodular focus of enhancement is identifiedwithin segment 3 on image 34 of series 8. An 8 mm nodular focus of enhancement at the junction of segments 5 and 6 onimage 45 ofseries 8 is identified. A 1.1 cm nodular focus of arterial enhancement is present within segment 6posteriorly on image 49 of series 8. These lesions wash down to isodensity with the adjacent hepatic parenchymaand likely represent benign foci arterialization, however, continuedattention to these areas on follow-up studies is recommended to excludedeveloping areas of multifocal hepatoma. A gallstone ispresent within the gallbladder. Moderate splenomegaly is identified measuring 16.8 cm in craniocaudaldimension. The pancreas, adrenal glands and kidneys have an unremarkable appearance. The stomach andvisualized portions of the small bowel and colon have anunremarkable appearance. Several prominent tiffanie hepatis, portacaval and periceliac lymph nodes areidentified which are likely reactive in nature. No definite evidence foromental or peritoneal metastatic disease is present. No significantabdominal ascites is present. No acute osseous abnormality is identified. Pelvis findings: The small bowel and colon are normal caliber. The urinarybladder demonstrates no abnormality. The prostate gland is within normallimits of size. No adenopathy or free fluid are identified in the pelvis.Chronic deformity of the left femoral head and acetabulum is identified. Noevidence for acute osseous abnormality is demonstrated. [facility], Radiant Results Inft User - 01/17/2021 4:35 PM CDTFormatting of this note might bedifferent from the original.Study: Triple phase CT of the abdomen and pelvis without and with contrast.HISTORY: Cirrhosis of the liver, evaluate for hepatoma.Ordering physician: JEAN MARIE MCGREGOR: Hernando xial CT images were obtained through the abdomen and pelvis at3 mm intervals before and following the administration of 100 cc ofIsovue-370 intravenously. Post contrast imaging was obtained during thearterial, portal venous and delayed phases. CT scan was performed accordingto ALARA (As Low as Reasonably Achievable).COMPARISON: No prior studies available for comparison.FINDINGS: Evaluation of the liver demonstrates marked nodularity of thehepatic contour with a diffusely hypodense appearance of the hepaticparenchyma. The findings are compatible with cirrhosis of the liver.There appears to have beenprior embolization therapy of an exophytic massarising from the anterior/superior aspect of the hepatic dome which is bestvisualized on image 16 of series 8 and image 18 of series 16. Coil embolicmaterial appears be present at the junction of the left and right hepaticlobes. There is an exophytic massprojecting from the anterior/superioraspect the hepatic dome which measures 2.7 x 1.1 cm. The medialaspect ofthis mass demonstrates avid arterial enhancement with wash down on the moredelayed postcontrast images. The nodular area of enhancement measures 1.5cm in greatest dimension. The findings appear most compatible with residualenhancing malignancy in this region.There are several additional nodular foci of arterial enhancement with washdown to isodensity with the adjacent hepatic parenchyma. Forexample, alesion within the anterior hepatic dome on image 18 of series 8 measures 7mm.A 1.4 cm nodular focus of enhancement is identified within segment 7 onimage 26 of series 8.An 8 mm focus of arterial enhancement within segment 2 is identified onimage 29 series 8. A 1.4 cm nodular focus of enhancement is identifiedwithin segment 3 on image 34 of series 8.An 8 mm nodular focus of enhancement at the junction of segments 5 and 6 onimage 45 of series 8 is identified.A 1.1 cm nodular focus of arterial enhancement is present within segment 6posteriorly on image 49 of series 8.These lesions wash down to isodensity with the adjacent hepatic parenchymaand likely represent benign foci arterialization, however, continuedattention to these areas on follow-up studies is recommended to excludedeveloping areas of multifocal hepatoma.A gallstone is present within the gallbladder.Moderate splenomegaly is identified measuring 16.8 cm in craniocaudaldimension.The pancreas, adrenal glands and kidneys have an unremarkable appearance.The stomach and visualized portions of the small bowel and colon have anunremarkable appearance.Several prominent tiffanie hepatis, portacaval and periceliac lymph nodes areidentified which are likely reactive in nature. No definite evidence foromental or peritoneal metastatic disease is present. No significantabdominal ascites is present. No acute osseous abnormality is identified.Pelvis findings: The small bowel and colon are normal caliber. The urinarybladder demonstrates no abn ormality. The prostate gland is within normallimits of size. No adenopathy or free fluid are identified in the pelvis.Chronic deformity of the left femoral head and acetabulum is identified. Noevidencefor acute osseous abnormality is demonstrated.IMPRESSION1. Cirrhosis of the liver is again identified.2. There appears to have been prior embolization therapy of a hepatomawithin the anterior/superior hepatic dome. There does appear to be residualnodular enhancement along the medial aspect of this lesion which issuspicious for residual viable tumor.3. Several nodular foci of arterial enhancement are i dentified throughoutthe liver which wash down to isodensity with the hepatic parenchyma on themore delayed postcontrast images. These are suspected to result from benignfoci arterialization, however, continued attention to these lesions onfollow-up studies is recommended to exclude multifocal hepatomas.4. Splenomegaly is identified indicating portal hypertension.5. A gallstone is present in the gallbladder.6. 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 No focal lesion to suggesthepatocellular carcinoma. Cholelithiasis.US ABDOMEN COMPLETE 12/15/2020 1:22 PM HISTORY: Liver mass COMPARISON: Ultrasound 07/05/2020, CT abdomen pelvis 01/11/2020. FINDINGS: LIVER: Length of 15.8 cm. Coarse parenchymal echotexture with surfacenodularity consistent with known liver cirrhosis. A 1.3 cm echogenic focuswith posterior shadow in border of right and left hepatic lobe correspondswith in position material noted on prior CT.The calcification in hepaticdome, noted on prior CT is not visualized on current exam likely due to g asfrom the lung. No solid hepatic lesion. ?Normal hepatopetal ?flow within the main portalvein. Mainportal vein diameter: 1.3 cm. GALLBLADDER: Cholelithiasis in gallbladder neck. No pericholecystic fluid,or gallbladder distention. No sonographic Lockhart's sign. The common bileduct measures 0.3 cm. PANCREAS: The visualized portion of the pancreas is unremarkable. RIGHT KIDNEY: Length of 10.7 cm. Normal cortical thickness andechogenicity. No hydronephrosis. A 0.5 cm cyst in the interpolar region. LEFTKIDNEY: Length of cm. Normal cortical thickness and echogenicity. Nohydronephrosis. A 1.0 cm cyst isnoted, projected exophytically from theinferior pole. SPLEEN: Enlarged Measures 16.5 cm. AORTA: The proximal aorta measures 2.2 cm. IVC: The visualized portion is unremarkable. [facility], Radiant Results Inft User - 12/15/2020 2:49 PM CDTUS ABDOMEN COMPLETE 12/15/2020 1:22 PM HISTORY: Liver mass COMPARISON: Ultrasound 07/05/2020, CT abdomen pelvis 01/11/2020. FINDINGS: LIVER: Length of 15.8 cm. Coarse par enchymal echotexture with surfacenodularity consistent with known liver cirrhosis. A 1.3 cm echogenic focuswith posterior shadow in border of right and left hepatic lobe correspondswith in position material noted on prior CT. The calcification in hepaticdome, noted on prior CT is not visualized on current exam likely due to gasfrom the lung. No solid hepatic lesion. Normal hepatopetal flow within the main portalvein. Main portal vein diameter: 1.3 cm.GALLBLADDER: Cholelithiasis in gallbladder neck. No pericholecystic fluid,or gallbladder distention. No sonographic Lockhart's sign. The common bileduct measures 0.3 cm.PANCREAS: The visualized portion of the pancreas is unremarkable.RIGHT KIDNEY: Length of 10.7 cm. Normal cortical thickness andechogenicity. No hydronephrosis. A 0.5 cm cyst in the interpolar region.LEFT KIDNEY: Length of cm. Normal cortical thickness and echogenicity. Nohydronephrosis. A 1.0 cm cyst is noted, projected exophytically from theinferior pole.SPLEEN: Enlarged Measures 16.5 cm.AORTA: The proximal aorta measures 2.2 cm.IVC: The visualized portion is unremarkable. IMPRESSION Unchanged appearance of liver cirrhosis. No focal lesion to suggesthepatocellular carcinoma.Cholelithiasis.[facility] CampusALPHA [id number] 02:58:30 Test Item Value Reference Range Interpretation Comments AFP (test code = 46.2 ng/mL See_Comment H [Automated [id number]) message] The system which generated this result transmitted reference range : <=7.5. The reference range was not used to interpret this result as normal/abnormal . RYAN (test code = RYAN) Biotin has been reported to cause a negative bias, interpret results relative to patient's use of biotin. Lab Interpretation Abnormal (test code = 15199-5) [facility]AT[facility] PAN[facility] (60176) (ALB,T.PRO,BILI T,BU/BC,ALT,AST,ALK PHOS)2020-12-11 22:09:26 Test Item Value Reference Range Interpretation Comments TOTAL BILI (test code = 8757650549) 1.0 mg/dL 0.1-1.1 BILI UNCON (test code = 7058870799) 0.9 mg/dL 0.1-1.1 BILI CONJ (test code = 8842984665) 0.0 mg/dL 0.0-0.3 T PROTEIN (test code = 8853964447) 7.2 g/dL 6.3-8.2 ALBUMIN (test code = 7602699759) 3.9 g/dL 3.5-5.0 ALK PHOS (test code = 2152611448) 104 U/L 34-122 ALTv (test code = 1742-6) 28 U/L 5-50 AST(SGOT) (test code = 0388380736) 52 U/L 13-40 H Lab Interpretation (test code = Abnormal 35538-5) [facility] METABOLIC PANEL (NA, K, CL, CO2, GLUCOSE, BUN, CREATININE, CA)2020-12-11 22:09:26 Test Item Value Reference Range Interpretation Comments NA (test code = 140 mmol/L 135-145 0234387475) K (test code = 4.5 mmol/L 3.5-5.0 7602587223) CL (test code = 111 mmol/L 98-108 H 8777208814) CO2 TOTAL (test code = 22 mmol/L 23-31 L 4956316746) AGAP (test code = 2-16 7609333388) BUN (test code = 11 mg/dL 7-23 7162861497) GLUCOSE (test code = 134 mg/dL 70-110 H 5854296910) CREATININE (test code = 1.27 mg/dL 0.60-1.25 H 2299078610) CALCIUM (test code = 8.9 mg/dL 8.6-10.6 7778339791) eGFR (test code = mL/min/1.73m2 9488308333) RYAN (test code = RYAN) Association of Glomerular Filtration Rate (GFR) and Staging of Kidney Disease* + --+ --+ ------+| GFR (mL/min/1.73 m2) ?| With Kidney Damage ?| ?Without Kidney Damage+ --------+ --------+ +| ?>90 ?| ?Stage one ?| ? Normal ?+ ---+ ---+ -------+| ?60-89 ?| ?Stage two ?| ? Decreased GFR ? + --+ --+ ------+| ?30-59 ?| ?Stage three ?| ? Stage three ? + --+ --+ ------+| ?15-29 ?| ?Stage four ? | ? Stage four ?+ ---+ ---+ -------+| ?<15 (or dialysis) ? ?| ?Stage five ? | ? Stage five ?+ ---+ ---+ -------+ *Each stage assumes the associated GFR level has been in effect for at least three months. ?Stages 1 to 5, with or without kidney disease, indicate chronic kidney disease. Notes: Determination of stages one and two (with eGFR >59mL/min/1.73 m2) requires estimation of kidney damage for at least three months as defined by structural or functional abnormalities of the kidney, manifested by either:Pathological abnormalities or Markers of kidney damage (including abnormalities in the composition of the blood or urine or abnormalities in imaging tests). Lab Interpretation Abnormal (test code = 97491-6) [facility] CampusACTIVATED PARTIAL THRMPLAS [id number] 21:25:12 Test Item Value Reference Range Interpretation Comments APTT Patient (test See_Comment [Automat ed code = 3173-2) message] The system which generated this result transmitted reference range : 23 - 38 Seconds . The reference range was not used to interpr et this result as normal/abnormal . RYAN (test code = RYAN) The [facility] patient population mean normal value for aPTT is 30 seconds. Lab Interpretation Normal (test code = 61584-6) [facility] CampusPROTHROMBIN TIME / [id number] 21:22:30 Test Item Value Reference Range Interpretation Comments PROTIME PATIENT (test See_Comment [Auto mated message] code = 5964-2) The system wh ich generated this result transmitted ref erence range: 12.0 - 1 4.7 Seconds. The re ference range was not u sed to interpret this result as normal/abnor mal. INR (test code = 6301-6) Nor mal INR <1.1; Warfarin Therap eutic range 2.0 to 3. 0 or 2.5 to 3.5, dep ending upon the indica tions. Lab Interpretation (test Normal code = 70480-9) [facility] CampusCBC WITH [id number] 21:20:12 Test Item Value Reference Range Interpretation Comments WBC (test code = See_Comment L [Automated 8290-2) message] The sy stem which generated this result transmitted reference range : 4.20 - 10.70 10*3/?L. The reference range was not used to interpret this result as normal/abnormal . RBC (test code = See_Comment L [Automated 269-8) message] The sy stem which generated this result transmitted reference range : 4.26 - 5.52 10*6/?L. The reference range was not used to interpret this result as normal/abnormal . HGB (test code = 12.3 g/dL 12.2-16.4 718-7) HCT (test code = 35.6 % 38.4-49.3 L 4544-3) MCV (test code = 96.5 fL 81.7-95.6 H 787-2) MCH (test code = 33.3 pg 26.1-32.7 H 785-6) MCHC (test code = 34.6 g/dL 31.2-35.0 786-4) RDW-SD (test code = 50.7 fL 38.5-51.6 72989-2) RDW-CV (test code = 14.2 % 12.1-15.4 788-0) PLT (test code = See_Comment L [Automated 777-3) message] The sy stem which generated this result transmitted reference range : 150 - 328 10*3/ ?L. The reference r richard was not used to interpret this result as normal/abnormal . MPV (test code = 10.1 fL 9.8-13.0 24186-4) NRBC/100 WBC (test See_Comment [Automat ed code = 7759434325) message] The system which generated this result transmitted reference range : 0.0 - 10.0 /100 WBCs. The refer ence range was not u sed to interpret th is result as normal/abnormal . NRBC x10^3 (test code <0.01 See_Comment [Auto mated = [id number]) message] The s ystem which generated this result transmitted reference range : 10*3/?L. The reference range was not used to interpret this result as normal/abnormal . GRAN MAT (NEUT) % 62.4 % (test code = 770-8) IMM GRAN % (test code 0.30 % = 3979094870) LYMPH % (test code = 25.7 % 736-9) MONO % (test code = 8.6 % 5905-5) EOS % (test code = 2.2 % 713-8) BASO % (test code = 0.8 % 706-2) GRAN MAT x10^3(ANC) 2.31 10*3/uL 1.99-6.95 (test code = 1722647267) IMM GRAN x10^3 (test <0.03 0.00-0.06 code = 5898878480) LYMPH x10^3 (test code 0.95 10*3/uL 1.09-3.23 L = 731-0) MONO x10^3 (test code 0.32 10*3/uL 0.36-1.02 L = 742-7) EOS x10^3 (test code = 0.08 10*3/uL 0.06-0.53 711-2) BASO x10^3 (test code 0.03 10*3/uL 0.01-0.09 = 704-7) Lab Interpretation Abnormal (test code = 17196-6) [facility] ABDOMEN [id number] 21:06:45HISTORY: Cirrhosis of liver without ascites. TECHNIQUE: Upper abdominal organs were evaluated in multiple planes withthe patient in multiple different positions, without and with colorimaging. FINDINGS: Comparison is made with 01/11/2020 CT studies. Liver is 14.3 cm, spleen is enlarged, 15.5 x 5.9 cm, right kidney is 9.7 x4.7 x 4.2 cm and left kidney is 9.6 x 5.3 x 5.0 cm in size. Liver exhibitedcoarse echotexture consistent with the history of cirrhosis of the liver.Focal left calcifications and metallic foreign objects are seen in theright lobe of the liver from prior treatment. Cortex of both kidneys rangebetween 15 mm and 17 mm. 4 mm cyst noted in the lateral cortex ofinterpolar region of the right kidney. No hydronephrosis, free fluid in theupper abdomen or aortic aneurysm detected. Visualized portions of thepancreas appear normal. Hepatic and portal venous system appear patent,with hepatopetal portal flow noted. Gallbladder appears to be of normal size and shape with no mild thickeningof the velasquez, probable small cholesterol polyps attached to the mucosallining of the gallbladder as wellas 1 cm size gallstone in the neck of thegallbladder. Common hepatic duct is 3.2 mm. CONCLUSIONS:1. Normal size liver with coarse echotexture and undulating serosal surfaceconsistent with history of cirrhosis. No worrisome focal lesions arevisualized.2. Splenomegaly. No ascites.3. Gallstone and cholesterol polyps attached to the mucosal lining of thegallbladder. No signs of acute cholecystitis. [facility], Radiant Results Inft User - 07/05/2020 3:07 PM CSTHISTORY: Cirrhosis of liver without ascites.[place] HNIQUE: Upper abdominal organs were evaluated in multiple planes withthe patient in multiple different positions, without and with colorimaging.FINDINGS: Comparison is made with 01/11/2020 CT studies.Liver is 14.3 cm, spleen is enlarged, 15.5 x 5.9 cm, right kidney is 9.7 x4.7 x 4.2 cm and left kidney is 9.6 x 5.3 x 5.0 cm in size. Liver exhibitedcoarse echotexture consistent with the history of cirrhosis of the liver.Focal left calcifications and metallic foreign objects are seen in theright lobe ofthe liver from prior treatment. Cortex of both kidneys rangebetween 15 mm and 17 mm. 4 mm cyst notedin the lateral cortex ofinterpolar region of the right kidney. No hydronephrosis, free fluid in theupper abdomen or aortic aneurysm detected. Visualized portions of thepancreas appear normal. Hepatic and portal venous system appear patent,with hepatopetal portal flow noted. Gallbladder appears to be of normal size and shape with no mild thickeningof the velasquez, probable small cholesterol polyps attached to the mucosallining of the gallbladder as well as 1 cm size gallstone in the neck of thegallbladder. Common hepatic duct is 3.2 mm.CONCLUSIONS:1. Normal size liver with coarse echotexture and undulating serosal surfaceconsistent with history of cirrhosis. No worrisome focal lesions arevisualized.2.Splenomegaly. No ascites.3. Gallstone and cholesterol polyps attached to the mucosal lining of thegallbladder. No signs of acute cholecystitis.[facility] [id number] 21:49:00 Test Item Value Reference Range Interpretation Comments POCT Creatinine (test code = 1.0 mg/dL 0.6-1.3 2118734859) Lab Interpretation (test code = Normal 27103-4) [facility] BONE WHOLE [id number] 18:49:46HISTORY: HCC. Evaluate for bone metastases. TECHNIQUE: Whole-body bone scan is obtained following intravenous injectionof 26.3 mCi of technetium 99 MDP. FINDINGS: Following areas show increased radiopharmaceutical activity: ?*Left hip joint. ?*Right AC and right sternoclavicular joint. ?*Right elbow joint. Right wrist and right MCP jointregion of the ring and little fingers. ?*Mild thoracolumbar scoliosis. CONCLUSIONS: No evidence of bone metastases. [facility], Radiant Results Inft User - 01/11/2020 1:50 PM CDTHISTORY: HCC. Evaluate for bone metastases.TECHNIQUE: Whole-body bone scan is obtained following intravenous injectionof 26.3 mCi of technetium 99 MDP.FINDINGS: Following areas show increased radiopharmaceutical activity: *Left hip joint. *Right AC and right sternoclavicular joint. *Right elbow joint. Right wrist and right MCP jointregion of the ring and little fingers. *Mild thoracolumbar scoliosis. CONCLUSIONS: No evidence of bone metastases.[facility] CampusPROTHROMBIN TIME / [id number] 17:24:00 Test Item Value Reference Range Interpretation Comments PROTIME PATIENT (test See_Comment [Auto mated message] code = 5964-2) The system meinKauf generated this result transmitted ref erence range: 12.0 - 1 4.7 Seconds. The re ference range was not u sed to interpret this result as normal/abnor mal. INR (test code = 6301-6) Nor mal INR <1.1; Warfarin Therap eutic range 2.0 to 3. 0 or 2.5 to 3.5, dep ending upon the indica tions. Lab Interpretation (test Normal code = 40812-5) [facility] WO [id number] 17:06:24CT Abdomen and Pelvis without and with intravenous contrast. CLINICAL HISTORY: Liver lesion, larger than 1 cm, with risk of HCC.. DOSE: Up-to-date CT equipment and radiation dose reduction techniques wereemployed. CTDIvol: 6.48+6.45+6.45+6.45 mGy. DLP: 192+189+189+189 mGy-cm. TECHNIQUE : Contiguous ax ial imaging from the level of the lung basesthrough iliac crests were performed initially without contrast andsubsequently after the uncomplicated administration of Omnipaque contrastmaterial. 2 additional delayed venous phase imaging were performed. Coronaland sagittal reconstructions were obtained. Auto mA and/or iterativereconstruction were used to reduce radiation dose. FINDINGS: Comparison is made with 09/24/2019 as well as 06/21/2019 studies. Liver, Gallbladder and Spleen: Cirrhotic morphology ofthe liver againnoted. Liver is 13.6 cm in size and spleen is enlarged, 15.5 x 7.2 cm insize.Dense calcification again noted in the anterior subdiaphragmatic right lobeof the liver surrounded by slightly prominent blood vessels. Metallic foreign object probably utilized for embolization noted in theleft lobe. Posterior lower right lobe of the liver showed 8mm subtleenhancing lesion, not clearly visualized in the previous study. 4 mm lesion described in the segment #7 in the previous study is notappreciated in this study. 7 mm lesion also in segment #7 again noted,essentially unchanged. Gallbladder is moderately distended and contains a single thin millimeterstone near the neck. Peritoneum: ?No freeair or free fluid. No lymphadenopathy. Pancreas and Adrenals: ?Unremarkable pancreas and adrenal glands. Kidneys and Ureters: Nonobstructing 3 mm stone in the left kidney noted. Nohydronephrosis. No enhancing kidney lesions. No hydroureter orhydronephrosis. Vessels: Atherosclerosis. No abdominal aortic aneurysm. Multiple irregularplaques again noted along the left lateral wall of the middle and lowerabdominal aorta. Retroperitoneum: Subcentimeter lymph nodes again noted in theretroperitoneum surrounding the aorta and inferior vena cava, unchanged. Bowel: Unremarkable. Bones: Moderate to severe degenerative disc disease at L5-S1. Soft tissues: Unremarkable. CONCLUSION: 1. Normal size liver with abnormal morphology consistent with chroniccirrhosis. There is possibly a new 8 mm lesion (LR 3) in thelower rightlobe of the liver, visualized during arterial phase only (segment #). Onelesion seen inthe dorsal right lobe of the liver in the previous study(segment #VII) is not visualized at this time. Another lesion in segmentVII is unchanged. Continued monitoring requested.2. Gallstone and left kidney stone. [facility], Radiant Results Inft User - 01/11/2020 12:07 PM CDTCT Abdomen and Pelvis withoutand with intravenous contrast.CLINICAL HISTORY: Liver lesion, larger than 1 cm, with risk of HCC..DOSE: Up-to-date CT equipment and radiation dose reduction techniques wereemployed. CTDIvol: 6.48+6.45+6.45+6.45 mGy. DLP: 192+189+189+189 mGy-cm.TECHNIQUE : Contiguous axial imaging from the level of thelung basesthrough iliac crests were performed initially without contrast andsubsequently after the uncomplicated administration of Omnipaque contrastmaterial. 2 additional delayed venous phase imaging were performed. Coronaland sagittal reconstructions were obtained. Auto mA and/or iterativereconstruction were used to reduce radiation dose.FINDINGS: Comparison is made with 09/24/2019 as well as 06/21/2019 studies.Liver, Gallbladder and Spleen: Cirrhotic morphology of the liver againnoted. Liver is 13.6cm in size and spleen is enlarged, 15.5 x 7.2 cm insize.Dense calcification again noted in the anterior subdiaphragmatic right lobeof the liver surrounded by slightly prominent blood vessels.Metallic foreign object probably utilized for embolization noted in theleft lobe. Posterior lower right lobe ofthe liver showed 8mm subtleenhancing lesion, not clearly visualized in the previous study.4 mm lesion described in the segment #7 in the previous study is notappreciated in this study. 7 mm lesion alsoin segment #7 again noted,essentially unchanged.Gallbladder is moderately distended and contains a single thin millimeterstone near the neck.Peritoneum: No free air or free fluid. No lymphadenopathy.Pancreas and Adrenals: Unremarkable pancreas and adrenal glands.Kidneys and Ureters: Nonobstructing 3mm stone in the left kidney noted. Nohydronephrosis. No enhancing kidney lesions. No hydroureter orhy dronephrosis. Vessels: Atherosclerosis. No abdominal aortic aneurysm. Multiple irregularplaques again noted along the left lateral wall of the middle and lowerabdominal aorta.Retroperitoneum: Subcentimeter lymph nodes again noted in theretroperitoneum surrounding the aorta and inferior vena cava, unch anged.Bowel: Unremarkable.Bones: Moderate to severe degenerative disc disease at L5-S1.Soft tissues:Unremarkable.CONCLUSION:1. Normal size liver with abnormal morphology consistent with chroniccirrhosis. There is possibly a new 8 mm lesion (LR 3) in the lower rightlobe of the liver, visualized duringarterial phase only (segment #). Onelesion seen in the dorsal right lobe of the liver in the previous study(segment #VII) is not visualized at this time. Another lesion in segmentVII is unchanged. Continued monitoring requested.2. Gallstone and left kidney stone.[facility] WITH [id number] 16:58:00 Test Item Value Reference Range Interpretation Comments WBC (test code = See_Comment L [Automated 6690-2) message] The sy stem which generated this result transmitted reference range : 4.20 - 10.70 10*3/?L. The reference range was not used to interpret this result as normal/abnormal . RBC (test code = See_Comment L [Automated 789-8) message] The sy stem which generated this result transmitted reference range : 4.26 - 5.52 10*6/?L. The reference range was not used to interpret this result as normal/abnormal . HGB (test code = 12.8 g/dL 12.2-16.4 718-7) HCT (test code = 36.1 % 38.4-49.3 L 4544-3) MCV (test code = 99.4 fL 81.7-95.6 H 787-2) MCH (test code = 35.3 pg 26.1-32.7 H 785-6) MCHC (test code = 35.5 g/dL 31.2-35 H 786-4) RDW-SD (test code = 49.4 fL 38.5-51.6 74923-6) RDW-CV (test code = 13.9 % 12.1-15.4 788-0) PLT (test code = See_Comment L [Automated 777-3) message] The sy stem which generated this result transmitted reference range : 150 - 328 10*3/ ?L. The reference r richard was not used to interpret this result as normal/abnormal . MPV (test code = 11.8 fL 9.8-13 55865-9) NRBC/100 WBC (test See_Comment [Automat ed code = 8063704567) message] The system which generated this result transmitted reference range : 0.0 - 10.0 /100 WBCs. The refer ence range was not u sed to interpret th is result as normal/abnormal . NRBC x10^3 (test code <0.01 See_Comment [Auto mated = 7130852495) message] The s ystem which generated this result transmitted reference range : 10*3/?L. The reference range was not used to interpret this result as normal/abnormal . GRAN MAT (NEUT) % 51.7 % (test code = 770-8) IMM GRAN % (test code 0.50 % = 5441947547) LYMPH % (test code = 32.4 % 736-9) MONO % (test code = 10.5 % 5905-5) EOS % (test code = 3.9 % 713-8) BASO % (test code = 1.0 % 706-2) GRAN MAT x10^3(ANC) 2.13 10*3/uL 1.99-6.95 (test code = 9544616313) IMM GRAN x10^3 (test <0.03 0-0.06 code = 5704018899) LYMPH x10^3 (test code 1.33 10*3/uL 1.09-3.23 = 731-0) MONO x10^3 (test code 0.43 10*3/uL 0.36-1.02 = 742-7) EOS x10^3 (test code = 0.16 10*3/uL 0.06-0.53 711-2) BASO x10^3 (test code 0.04 10*3/uL 0.01-0.09 = 704-7) Lab Interpretation Abnormal (test code = 98128-3) [facility] WITH [id number] 16:58:00 Test Item Value Reference Range Interpretation Comments WBC (test code = See_Comment L [Automated 3690-2) message] The sy stem which generated this result transmitted reference range : 4.20 - 10.70 10*3/?L. The reference range was not used to interpret this result as normal/abnormal . RBC (test code = See_Comment L [Automated 529-8) message] The sy stem which generated this result transmitted reference range : 4.26 - 5.52 10*6/?L. The reference range was not used to interpret this result as normal/abnormal . HGB (test code = 12.8 g/dL 12.2-16.4 718-7) HCT (test code = 36.1 % 38.4-49.3 L 4544-3) MCV (test code = 99.4 fL 81.7-95.6 H 787-2) MCH (test code = 35.3 pg 26.1-32.7 H 785-6) MCHC (test code = 35.5 g/dL 31.2-35 H 786-4) RDW-SD (test code = 49.4 fL 38.5-51.6 72433-3) RDW-CV (test code = 13.9 % 12.1-15.4 788-0) PLT (test code = See_Comment L [Automated 777-3) message] The sy stem which generated this result transmitted reference range : 150 - 328 10*3/ ?L. The reference r richard was not used to interpret this result as normal/abnormal . MPV (test code = 11.8 fL 9.8-13 69331-3) NRBC/100 WBC (test See_Comment [Automat ed code = 7256306540) message] The system which generated this result transmitted reference range : 0.0 - 10.0 /100 WBCs. The refer ence range was not u sed to interpret th is result as normal/abnormal . NRBC x10^3 (test code <0.01 See_Comment [Auto mated = 3146686479) message] The s ystem which generated this result transmitted reference range : 10*3/?L. The reference range was not used to interpret this result as normal/abnormal . GRAN MAT (NEUT) % 51.7 % (test code = 770-8) IMM GRAN % (test code 0.50 % = 8298182213) LYMPH % (test code = 32.4 % 736-9) MONO % (test code = 10.5 % 5905-5) EOS % (test code = 3.9 % 713-8) BASO % (test code = 1.0 % 706-2) GRAN MAT x10^3(ANC) 2.13 10*3/uL 1.99-6.95 (test code = 8300011402) IMM GRAN x10^3 (test <0.03 0-0.06 code = 0151693209) LYMPH x10^3 (test code 1.33 10*3/uL 1.09-3.23 = 731-0) MONO x10^3 (test code 0.43 10*3/uL 0.36-1.02 = 742-7) EOS x10^3 (test code = 0.16 10*3/uL 0.06-0.53 711-2) BASO x10^3 (test code 0.04 10*3/uL 0.01-0.09 = 704-7) Lab Interpretation Abnormal (test code = 13682-4) [facility] [id number] 16:47:24 HISTORY: HCC. Evaluate for thoracic metastatic disease. TECHNIQUE: 64- Multidetector noncontrast enhanced CT of the chest isobtained. FINDINGS: Comparison is made with 09/24/2019 study. Visualized portions ofthe thyroid gland appear unremarkable. Trachea and central bronchialairways appear normal. No pleu ral effusion or pericardial effusion. No pneumothorax orpneumomediastinum. No enlarged hilar or mediastinal lymph nodes. Small scattered lymph nodesin the AP window region, adjacent to the anterior surface of the aorticarch, anterior to the trachea noted, unchanged. Areas of focal pulmonary scarring and pleural thickening again noted alongthe posteromedial right as well as left lower lung, unchanged.There is faint 4 mm nodular density in the right anterior upper lobe,unchanged (8:51). Previously described small 2 mm nodule in the left upperlung is not appreciated at this time. Small calcified granuloma in the right costophrenic sinus region isunchanged. Calcification is seen in the aortic root andproximal descending thoracicaorta, aortic arch. No significant calcification appreciated in thecoronary arteries. Moderate degenerative disc disease noted at T7-T8, stable. CONCLUSIONS:1. No definite evidence of intrathoracic metastatic disease.2. Abnormal CT chest findings discussed above are stable compared with09/24/2019 study.[facility], Radiant Results Inft User - 01/11/2020 11:48 AM CDTHISTORY: HCC. Evaluate for thoracic metastatic disease.TECHNIQUE: 64-Multidetector noncontrast enhanced CT of the chest isobtained.FINDINGS: Comparison is made with 09/24/2019 study. Visualized portions ofthe thyroid gland appear unremarkable. Trachea and central bronchialairways appear normal.No pleural effusion or pericardial effusion. No pneumothorax orpneumomediastinum.No enlarged hilar or mediastinal lymph nodes. Small scattered lymph nodesin the AP window region, adjacent to the anterior surface of the aorticarch, anterior to the trachea noted, unchanged.Areas of focal pulmonary scarring and pleural thickening again noted alongthe posteromedial right as well as left lower lung, unchanged.There is faint 4 mm nodular density in the right anterior upper lobe,unchanged (8:51). Previously described small 2 mm nodule in the left upperlung is not appreciated at this time.Small calcified granuloma in the right costophrenic sinus region isunchanged.Calcification is seen in the aortic root and proximal descending thoracicaorta, aortic arch. No significant calcification appreciated in thecoronary arteries.Moderate deg enerative disc disease noted at T7-T8, stable.CONCLUSIONS:1. No definite evidence of intrathoracic metastatic disease.2. Abnormal CT chest findings discussed above are stable compared with09/24/2019 study.[facility] [id number] 21:24:00 Test Item Value Reference Range Interpretation Comments POCT Creatinine (test code = 1.1 mg/dL 0.6-1.3 1396798843) Lab Interpretation (test code = Normal 26556-5) [facility] THORAX WO [id number] 20:41:501. Stable appearance of the chest. No significant change since the priorstudy and no new abnormality EXAM: CT scan of the chest without contrast HISTORY: HCC surveillance TECHNIQUE:3 mm axial images are obtained from lung apices to the diaphragmswithout intravenous contrast. Sagittal and coronal reformation is carriedout. COMPARISON: 06/21/2019 Radiation Dose: DLP of 136 mGy-cm. FINDINGS: The thyroid gland and the lower back are normal Upper lobe predominant centrilobular emphysematous changes are seen. Areasof scarring involving the posterior pleural surface of both lower lungs areessentially unchanged with mild associated traction bronchiectasis on theright. Small 2 mm nodule in the left upper lobe is unchanged (8:22). Acalcified granuloma is seen in the right lower lobe. The central airway is normal. No bronchial wall thickening or mucousplugging is noted. Heart size is normal. No pericardial effusion is seen. Scattered coronaryartery calcium patient is seen. Calcifications are seen in the aorticannulus. Thoracic aorta is normal in caliber. Pulmonary artery is normal insize. No enlarged lymph nodes are seen in the mediastinum or in the hilar areas. Changes of moderately severe spondylosis are seen at T7-T8. [facility], Radiant Results Inft User - 09/24/2019 2:42 PM CSTEXAM: CT scan of the chest without contrastHISTORY: HCC surveillanceTECHNIQUE:3 mm axial images are obtained from lung apices to the diaphragmswithout intravenous contrast. Sagittal and coronal reformation is carriedout.COMPARISON: 06/21/2019Radiation Dose: DLP of 136 mGy- cm. FINDINGS:The thyroid gland and the lower back are normalUpper lobe predominant centrilobular emphysematous changes are seen. Areasof scarring involvingthe posterior pleural surface of both lower lungs areessentially unchanged with mild associated traction bronchiectasis on theright. Small 2 mm nodule in the left upper lobe is unchanged (8:22). Acalcified granuloma is seen in the right lower lobe.The central airway is normal. No bronchial wall thicken ing or mucousplugging is noted.Heart size is normal. No pericardial effusion is seen. Scattered coronaryartery calcium patient is seen. Calcifications are seen in the aorticannulus. Thoracic aorta is normal in caliber. Pulmonary artery is normal insize.No enlarged lymph nodes are seen in the mediastinum or in the hilar areas.Changes of moderately severe spondylosis are seen at T7- T8.IMPRESSION1. Stable appearance of the chest. No significant change since the priorstudy and no new abnormalityUnTexas Health Southwest Fort WorthCT ABDOMEN PELVIS W WO [id number] 16:37:33CT Abdomen and Pelvis without and with intravenous contrast. CLINICAL HISTORY: Liver transplant patient. Surveillance for HCC. TECHNIQUE : Contiguous axial imaging from the level of the lung basesthrough the pubic symphysis were performed initially without andsubsequently after the uncomplicated administration of Omnipaque contrastmaterial. Oral contrast was also administered. Coronal and sagittalreco nstructions were obtained. Auto mA and/or iterative reconstruction were used to reduce radiationdose. FINDINGS: Comparison is made with 12/31/2018 study. Liver, Gallbladder and Spleen: Nodular serosal surface of the liver notedconsistent with chronic primary liver disease S/P TACE changes noted in theform of localized embolization coils with minimal enhancement of thesurrounding liver parenchyma. No definite residual lesion with washoutvisualized throughout the liver. Liver is 13.8 cm and spleen is moderatelyenlarged, 16.5 x 4.8 cm in size. Single 12 mm gallstone noted without anyevidence of acute cholecystitis. Peritoneum:?No free air or free fluid. Mildly enlarged lymph nodes againnoted in the upper abdomen just in front of EG junction and, in theretrogastric space, in the peripancreatic and periportal region, betweenthe aorta and IVC, unchanged. Pancreas and Adrenals:?Unremarkable pancreas and adrenal glands. Mild leftadrenal gland hypertrophy noted. Kidneys and Ureters: 3.5 mm size nonobstru cting stone noted in the middlepole of the left kidney. Small 5 mm hyperattenuating lesion seen on thesurface of lower pole and the consistent with Bosniak type II cysticlesion, unchanged. No hydroureter or hydronephrosis. Vessels: Atherosclerosis with mild stricture in the infrarenal segment ofthe ab dominal aorta and left common iliac artery.Small esophageal varices are seen, best appreciated in the delayed imaging. Retroperitoneum: No abnormal fluid or lymphadenopathy. Bowel: No acute findings. Ametallic foreign object is seen in the lowersigmoid colon, approximately 12 mm long and 2 mm in diameter, possibly apiece of needle or wire. Bladder and Reproductive Organs: Moderately enlarged prostate gland.Urinary bladder is not opacified even in the delayed images. Bones: Severe degenerative changes in the left hip joint from remote traumaand surgery. Mild degenerative arthritis of right hip joint.Moderate degenerative disc disease at L5-S1. Soft tissues: Unremarkable. CONCLUSION:1. Chronic primary liver disease with portal hypertension causingsplenomegaly and small esophageal varices. No ascites. S/P TACE changes inthe liver. No sign of residual tumor or recurrent tumor. No sign of HCC.2. Gallstones without acute cholecystitis.3. Left kidney stone without obstructive hydronephrosis.4. Enlarged prostate.5. Severe degenerative changes in the left hip joint. [facility], Radiant Results Inft User - 03/31/2019 11:39 AM CDTCT Abdomen and Pelvis without and with intravenous contrast.CLINICAL HISTORY: Liver transplant patient. Surveillance for HCC.TECHNIQUE : Contiguous axial imaging from the level of the lung basesthrough the pubic symphysis were performed initially without andsubsequently after the uncomplicated administration of Omnipaque contrastmaterial. Oral contrast was also administered. Coronal and sagittalreconstructions were obtained. Auto mA and/or iterative reconstruction were used to reduce radiationdose.FINDINGS: Comparison is made with 12/31/2018 study.Liver, Gallbladder and Spleen: Nodular serosal surface of the liver notedconsistent with chronic primary liver disease S/P TACE changes noted in theform of localized embolization coils with minimal enhancement of thesurroundingliver parenchyma. No definite residual lesion with washoutvisualized throughout the liver. Liver is 13.8 cm and spleen is moderatelyenlarged, 16.5 x 4.8 cm in size. Single 12 mm gallstone noted without anyevidence of acute cholecystitis.Peritoneum: No free air or free fluid. Mildly enlarged lymph nodes againnoted in the upper abdomen just in front of EG junction and, in theretrogastric space, in theperipancreatic and periportal region, betweenthe aorta and IVC, unchanged.Pancreas and Adrenals: Unremarkable pancreas and adrenal glands. Mild leftadrenal gland hypertrophy noted.Kidneys and Ureters:3.5 mm size nonobstructing stone noted in the middlepole of the left kidney. Small 5 mm hyperattenuating lesion seen on thesurface of lower pole and the consistent with Bosniak type II cysticlesion, unchanged. No hydroureter or hydronephrosis. Vessels: Atherosclerosis with mild stricture in the infrarenal segment ofthe abdominal aorta and left common iliac artery.Small esophageal varices are seen, best appreciated in the delayed imaging.Retroperitoneum: No abnormal fluid or lymphadenopathy.Bowel: No acute findings. A metallic foreign object is seen in the lowersigmoid colon, approximately 12 mm long and 2 mm in diameter, possibly apiece of needle or wire.Bladder and Reproductive Organs: Moderately enlarged prostate gland.Urinary bladder is not opacified even in the delayed images.Bones: Severe degenerative changes in the left hip joint from remote traumaand surgery. Mild degenerative arthritis of right hip joint.Moderate degenerative disc disease at L5-S1.Soft tissues: Unremarkable.CONCLUSION:1. Chronic primary liver disease with portal hypertension causingsplenomegaly and small esophageal varices. No ascites. S/P TACE changes inthe liver. No sign of residual tumor or recurrent tumor. No sign of HCC.2. Gallstones without acute cholecystitis.3. Left kidney stone without obstructive hydronephrosis.4. Enlarged prostate.5. Severe degenerative changes in the left hip joint.[facility] 2019-[facility]-31 15:38:21HISTORY: Abnormal CT chest of 12/31/2018. Follow-up. TECHNIQUE: 64-Multidetector noncontrast enhancedCT of the chest isobtained. FINDINGS: Comparison with 12/31/2018 study showed no interval change inabnormal findings in peripherally located pleural-based groundglassopacities with parenchymal distortion, minimal traction bronchiectasis andsurrounding pulmonary fibrosis. Small calcified granuloma is also seen inthe posterior right costophrenic sinus. Pleural thickening with minimal peripheral fibrosisin the adjacent lungsnoted on both sides, unchanged. Trachea and central bronchial airwaysappear normal. No pleural effusion or pericardial effusion. No enlarged lymph nodes are seen in the aide or themediastinum. No focallesions detected in the thyroid gland. Atherosclerosis?noted with calcificationin the ascending aorta, less inthe descending aorta. No appreciable calcification seen in the coronaryarteries. Abnormal findings at T8-T9 disc level in the form of narrowing of the discspace, Schmorl's nodes surrounded by sclerosis and osteophytes along theventral vertebral margins noted, essentiallyunchanged when compared with12/31/2018 study. CONCLUSIONS:1. Stable abnormal bilateral lower lobe pulm onary findings since 12/31/2018study. Findings, therefore, likely chronic due to prior pulmonaryinfections.2. Unchanged subcutaneous mass in the posterior chest wall at the level ofT2-T3. This could be a large sebaceous cyst. A solid noncalcified pulmonary nodule is noted, measuring 8mm or greater.Due to the size and characteristics of the nodule, this case will bereferred to the pulmonary consult service. Recommendations for Follow-up and Management of Indeterminate Lung Nodules. Nodule? Diameter<= 6 mm? LOW RISK Patient?: No follow up needed.? HIGH RISK Patient : Follow up CT at 12 months. ? If unchanged, no additional follow up. >6-8 mm? Follow up CT at 6, 12 and 24 months.? If no change, no further follow up. > 8 mm? Contrast-enhanced CT, PET and/or biopsy. OR? Watchful waiting: follow up CT at 3, 9 & 24 months. HIGH RISK is defined as a history of smoking or other known riskfactorsfor lung cancer. LOW RISK is defined as minimal or absent history of smoking or other knownrisk factors. Caveat: Nodules with a ground glass component may require longer follow upto exclude indolent adenocarcinoma. [facility], Radiant Results Inft User - 03/31/2019 10:40 AM CDTHISTORY: Abnormal CT chest of 12/31/2018. Follow- up.TECHNIQUE: 64-Multidetector noncontrast enhanced CT of the chest isob tained.FINDINGS: Comparison with 12/31/2018 study showed no interval change inabnormal findings in peripherally located pleural-based groundglassopacities with parenchymal distortion, minimal traction bronchiectasis andsurrounding pulmonary fibrosis. Small calcified granuloma is also seen inthe posterior right costophrenic sinus.Pleural thickening with minimal peripheral fibrosis in the adjacent lungsnoted on both sides, unchanged. Trachea and central bronchial airwaysappear normal. No pleural effusion or pericardial effusion.No enlarged lymph nodes are seen in the aide or the mediastinum. No focallesions detected in the thyroid gland.Atherosclerosis noted with calcification in the ascending aorta, less inthe descending aorta. No appreciable calcification seen in the coronaryarteries.Abnormal findings at T8-T9 disc level in the form of narrowing of the discspace, Schmorl's nodes surrounded by sclerosis and osteophytes along theventral vertebral margins noted, essentially unchanged when compared with12/31/2018 study.CONCLUSIONS:1. Stable abnormal bilateral lower lobe pulmonary findings since 12/31/2018study. Findings, therefore, likely chronic due to prior pulmonaryinfections.2. Unchanged subcutaneous mass in the posterior chest wall at the level ofT2-T3. This could be a large sebaceous cyst.A solid noncalcified pulmonary nodule is noted, measuring 8mm or greater.Due to the size and characteristics of the nodule, this case will bereferred to the pulmonary consult service.Recommendations for Follow-up and Management of Indeterminate Lung Nodules.Nodule Diameter <= 6 mm LOW RISK Patient : No follow up needed. HIGH RISK Patient : Follow up CT at 12 months. If unchanged, no additional follow up.>6-[address] at 6, 12 and 24 months. If no change, no further follow up.> 8 mm Contrast-enhanced CT, PET and/or biopsy. OR Watchful waiting: follow up CT at 3, 9 & 24 months. HIGH RISK is defined as a history of smoking or other known risk factorsfor lung cancer. LOW RISK is defined as minimal or absent history of smoking or other knownrisk factors. Caveat: Nodules with a ground glass component may require longer follow upto exclude indolent adenocarcinoma. [facility]"
== END 2021-06-23 10:07 | disposition hospice, home (50) | DRG 682 ==
LOC: ER 14:37 → ERHOLD 19:55 → 4TH 21:13 → 2ND 06-16 17:44
PROVIDERS: ADMIT Family Medicine; ATTEND Hospitalist
PROC: 0W9G3ZZ Drainage of Peritoneal Cavity, Percutaneous Approach (ICD-10-PCS; principal; 2021-06-17)
DX: N17.9 Acute kidney failure, unspecified (principal); K72.00 Acute and subacute hepatic failure without coma; E87.2 Acidosis; E44.0 Moderate protein-calorie malnutrition; R18.8 Other ascites; C22.0 Liver cell carcinoma; K74.60 Unspecified cirrhosis of liver; N18.4 Chronic kidney disease, stage 4 (severe); E87.6 Hypokalemia; E87.5 Hyperkalemia; B19.20 Unspecified viral hepatitis C without hepatic coma; F17.210 Nicotine dependence, cigarettes, uncomplicated; K21.9 Gastro-esophageal reflux disease without esophagitis; D63.8 Anemia in other chronic diseases classified elsewhere; R73.9 Hyperglycemia, unspecified; Z79.899 Other long term (current) drug therapy; Z68.21 Body mass index [BMI] 21.0-21.9, adult; Z60.2 Problems related to living alone; Z20.822 Contact with and (suspected) exposure to COVID-19
CPT/HCPCS: 36415; 49083; 70450; 71045; 74176; 76770; 80048; 80053; 80061; 80076; 80320; 81003; 81015; 82140; 82150; 82607; 82728; 82945; 82947; 83036; 83540; 83605; 83615; 83735; 83880; 84100; 84145; 84439; 84443; 84466; 84484; 84550; 85025; 85610; 85730; 87040; 87070; 88108; 88305; 93005; 96374; 96375; 97110; 97116; 97161; 97530; 99285; C9113; J0610; J1644; J1720; J3010; J7030; P9047; U0003